=== PATIENT | female | born 1975 | race Caucasian/White ===

== ENCOUNTER 2018-06-01 23:12 | Emergency (ER) | payer MEDICAID, SELFPAY ==
[2018-06-01 23:13] VITALS: BP 145/98; PULSE 77; RESP 18; TEMP 36.4; O2SAT 98; BMI 35.7
--- NOTE | 2018-06-01 23:34 | ED.DCSUM_ITS ---
- ER Visit Summary Date of Service: 06/01/18 Chief Complaint: Right earache and cough History of Present Illness: The patient is a 42 F seen in past medical or surgical history. Patient for 3 days has had a right earache and now a cough and mild sore throat. Cough is nonproductive she is not short of breath. She has had some subjective chills but no documented fever. No vomiting or diarrhea. Physical Examination: Well-appearing middle-age female. Vital signs are stable and afebrile. Pulse ox 98% on room air. No distress. No hypoxia. HEENT exam TMs are normal bilaterally as are the ear canals. Posterior pharynx normal. No erythema or exudate. Tonsils not enlarged. 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 No trouble swallowing or breathing. No stridor or drooling. Neck nontender. No lymphadenopathy. Lungs clear to auscultation bilaterally. No rales, rhonchi or wheezing. Heart regular rate and rhythm no murmur. Abdomen soft and nontender. Moving all 4 extremities. No edema. Back nontender. Neurologically awake and alert no focal motor deficits. Test Results: None Emergency Department Course and Treatment: History and exam are consistent with a viral URI. Treatment Plan: Fluids and rest. Tylenol Motrin. Disposition: Discharge Impression: Viral URI This note was generated with [employer] dictation software. It may contain incorrect words, spelling, and punctuation that were not noted in review of the chart prior to signing ED Disposition - Plan for ED Patient: Referrals: Ashley Stovall MD [Primary Care Provider] -
--- NOTE | 2018-06-01 23:34 | ED.DEP ---
ED Disposition - Plan for ED Patient: Disposition: Home or Assisted Living Instructions: ED Pharyngitis Viral Referrals: Ashley Stovall MD [Primary Care Provider] - 1 Week if not improving Additional Instructions: Plan of fluids and rest. Alternate Tylenol and Motrin. Warm salt water gargling. Follow-up with not improving.
[2018-06-01 23:44] VITALS: BP 145/98; PULSE 77; RESP 18; O2SAT 98
== END 2018-06-01 23:45 | disposition home or self-care (01) ==
LOC: ED 23:39
PROVIDERS: Emergency Provider Emergency Medicine; Family Provider Internal Medicine; PCP Internal Medicine
DX: J06.9 Acute upper respiratory infection, unspecified (principal); J02.9 Acute pharyngitis, unspecified
CPT/HCPCS: 99282

== ENCOUNTER 2018-08-03 20:56 | Emergency (ER) | payer MEDICAID, SELFPAY ==
[2018-08-03 20:56] VITALS: BP 147/94; PULSE 90; RESP 16; TEMP 36.8; O2SAT 98; BMI 35.5
--- NOTE | 2018-08-03 21:12 | RAD_ITS ---
STUDY: X-RAY - LEFT WRIST REASON FOR EXAM: Female, 43 years old. Wrist pain. TECHNIQUE: 3 view(s) of the wrist were obtained. COMPARISON: None. FINDINGS: No acute fracture, dislocation or osseous destruction. No significant joint space narrowing. No significant productive changes. No significant soft tissue swelling. RAD/Wrist min 3 Views IMPRESSION: Left wrist intact Electronically Signed: Jona Diaz DO at 21:25 EDT Tel , Service support ,
[2018-08-03] MEDS: Naproxen 500 MG Tablet PO (21:27)
--- NOTE | 2018-08-03 21:48 | ED.VIS.GEN ---
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 RHD. - Past Medical History (1) Headache, migraine Status: Chronic Past Medical History - Allergies and Home Meds Allergies/Adverse Reactions: Allergies Penicillins Allergy (Verified 08/03/18 20:58) Hives Primary Care Physician: Ashley Stovall MD [Primary Care Provider] - Lives: Spouse/ Significant Other Smoking Status: Never smoker Review of Systems General: Denies: Chills, Fever Musculoskeletal: Reports: Swelling, Extremity Pain. Denies: Neck pain, Back pain Skin: Denies: Rash, Wounds Neurological: Denies: Weakness, Parasthesia, Numbness Physical Exam Vital Signs/Narrative: Vital Signs Temp Pulse Resp BP Pulse Ox 08/03/18 20:56 98.2 F 90 16 147/94 H 98 Inital Vital Signs reviewed: Yes General: Well nourished, Well developed, No Acute Distress Head: Normocephalic, Atraumatic Extremities: No edema, Tenderness - L wrist: dorsum of carpus and distal ulna, - - FROM left wrist and hand Skin: Normal color, No rash, No Trauma - skin intact Neurological: Alert, Oriented x3, Cranial nerves II-XII grossly intact, Normal Strength - including left M/R/U/PIN/AIN, Normal Sensation, Normal Gait Psychological: Normal affect, Normal Mood Diagnostic/Tx/Re-eval Clinical Impression(s) from Imaging Studies Wrist X-Ray 08/03/18 21:12 IMPRESSION: Left wrist intact Electronically Signed: Jona Diaz DO at 21:25 EDT Tel , Service support , - Medical Decision Making X-rays are obtained and showed no acute bony abnormality. She was reassured that this is probably a sprain, she was placed in a cock-up Velcro splint, given naproxen, supportive care advised to follow-up if she still has pain after 1 to 2 weeks that is not improving. She is comfortable with that plan. ED Disposition - Plan for ED Patient: Disposition: Home or Assisted Living Diagnosis: Left wrist sprain Instructions: ED Sprain Wrist Referrals: Ashley Stovall MD [Primary Care Provider] - (as needed if not improving after 1-2 weeks)
--- NOTE | 2018-08-03 21:52 | ED.DCSUM_ITS ---
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 RHD. - Past Medical History (1) Headache, migraine Status: Chronic Past Medical History - Allergies and Home Meds Allergies/Adverse Reactions: Allergies Penicillins Allergy (Verified 08/03/18 20:58) Hives Primary Care Physician: Ashley Stovall MD [Primary Care Provider] - Lives: Spouse/ Significant Other Smoking Status: Never smoker Review of Systems General: Denies: Chills, Fever Musculoskeletal: Reports: Swelling, Extremity Pain. Denies: Neck pain, Back pain Skin: Denies: Rash, Wounds Neurological: Denies: Weakness, Parasthesia, Numbness Physical Exam Vital Signs/Narrative: Vital Signs Temp Pulse Resp BP Pulse Ox 08/03/18 20:56 98.2 F 90 16 147/94 H 98 Inital Vital Signs reviewed: Yes General: Well nourished, Well developed, No Acute Distress Head: Normocephalic, Atraumatic Extremities: No edema, Tenderness - L wrist: dorsum of carpus and distal ulna, - - FROM left wrist and hand Skin: Normal color, No rash, No Trauma - skin intact Neurological: Alert, Oriented x3, Cranial nerves II-XII grossly intact, Normal Strength - including left M/R/U/PIN/AIN, Normal Sensation, Normal Gait Psychological: Normal affect, Normal Mood Diagnostic/Tx/Re-eval Clinical Impression(s) from Imaging Studies Wrist X-Ray 08/03/18 21:12 IMPRESSION: Left wrist intact Electronically Signed: Jona Diaz DO at 21:25 EDT Tel , Service support , - Medical Decision Making X-rays are obtained and showed no acute bony abnormality. She was reassured that this is probably a sprain, she was placed in a cock-up Velcro splint, given naproxen, supportive care advised to follow-up if she still has pain after 1 to 2 weeks that is not improving. She is comfortable with that plan. ED Disposition - Plan for ED Patient: Disposition: Home or Assisted Living Diagnosis: Left wrist sprain Instructions: ED Sprain Wrist Referrals: Ashley Stovall MD [Primary Care Provider] - (as needed if not improving after 1- 2 weeks)
== END 2018-08-03 22:03 | disposition home or self-care (01) ==
PROVIDERS: Emergency Provider Emergency Medicine; Family Provider Internal Medicine; PCP Internal Medicine
DX: S63.502A Unspecified sprain of left wrist, initial encounter (principal); X50.0XXA Overexertion from strenuous movement or load, initial encounter; Y93.89 Activity, other specified; Y92.89 Other specified places as the place of occurrence of the external cause; Y99.8 Other external cause status
CPT/HCPCS: 73110; 99283

== ENCOUNTER 2018-11-06 19:43 | Emergency (ER) | payer SELFPAY ==
[2018-11-06 19:45] VITALS: BP 141/90; PULSE 87; RESP 18; TEMP 35.8; O2SAT 100; BMI 35.2
[2018-11-06] MEDS: 0.9% Normal Saline 1,000 ML 999 ML IV (20:01)
[2018-11-06] MEDS: Ondansetron 4 MG/2 ML Vial IV (20:04)
[2018-11-06 20:09] LABS: Absolute Lymphocyte Count 3.01 X10^3/uL (0.83-4.51); Absolute Neutrophil Count 5.4 X10^3/uL (2.0-7.7); Basophil# 0.06 X10^3/uL; Basophil% 0.7 % (0-1); Eosinophil# 0.08 X10^3/uL; Eosinophils% 0.9 % (0-5); Hematocrit 37.8 % (37-47); Hemoglobin 12.6 g/dL (12.0-15.0); Lymphocyte # 3.01 X10^3/ul (4.0); Lymphocyte % 32.6 % (19-41); Mean Corp Hgb Conc 33.3 g/dL (32-36); Mean Corpuscular Hgb 28.5 pg (27.0-32.0); Mean Corpuscular Volume 85.5 fL (81-99); Mean Platelet Vol. 9.7 fl (6.2-12.0); Monocyte% 6.5 % (0-10); NRBC Flagged by Analyzer 0 % (0-5); Neutrophil # 5.43 X10^3/uL (2.7-7.7); Neutrophil % 58.9 % (47-70); Platelet Count 277 K/mm3 (150-450); RBC Distribution Width CV 12.6 % (11.6-14.6); RBC Distribution Width SD 39.4 fl (35.1-43.9); Red Blood Count 4.42 M/mm3 (4.2-5.4); White Blood Count 9.2 K/mm3 (4.4-11.0)
[2018-11-06 20:23] LABS: Anion Gap 4 (5-15); BUN 10 mg/dL (7-18); BUN/Creat Ratio 16.3 RATIO (10-20); Calcium,Total 8.5 mg/dL (8.5-10.1); Chloride 108 mmol/L (98-107); Creatinine, Serum 0.61 mg/dL (0.55-1.02); EST Glomerular Filtration Rate 114 mL/min (>60); Est Glom Filt Rate - Afr Amer 137 mL/min (>60); Estimated Creatinine Clearance 90.66 ml/min; Glucose 85 mg/dL (74-106); Potassium 3.8 mmol/L (3.5-5.1); Sodium Level 138 mmol/L (136-145)
--- NOTE | 2018-11-06 20:55 | ED.VISSUMM ---
- ER Visit Summary Date of Service: 11/06/18 Chief Complaint: Dizziness and nausea History of Present Illness: The patient is a 43 F who is G5, P4 and possibly at this time. She took a test at home and they were positive. She has had nausea and vomiting for the past 3 weeks. She feels some intermittent dizziness. She does have a history of vertigo. She has had decreased p.o. intake. She denies any vaginal bleeding or abdominal pain. She has no nausea medications at home. Denies any fevers or any other recent illnesses. Physical Examination: Vital signs reviewed. HEENT exam unremarkable. There is no nystagmus. Heart is regular rate and rhythm without murmurs. Lungs are clear to auscultation. Abdomen is soft and nontender. Extremities reveal no edema. Skin exam normal. Neurologic exam normal. Test Results: Laboratory studies are normal except for an hCG of 44,038 Emergency Department Course and Treatment: Patient was given IV fluids and Zofran and feels much better. I do not see any symptoms of active vertigo. She does have a likely first trimester . 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 Treatment Plan: [] Disposition: Discharge Impression: First trimester , nausea and vomiting This note was generated with [employer] dictation software. It may contain incorrect words, spelling, and punctuation that were not noted in review of the chart prior to signing ED Disposition - Plan for ED Patient: Referrals: Ashley Stovall MD [Primary Care Provider] -
--- NOTE | 2018-11-06 20:56 | ED.DEP ---
ED Disposition - Plan for ED Patient: Disposition: Home or Assisted Living Instructions: VOMITING (7y-Adult) Prescriptions: Ondansetron [Zofran Odt] 4 mg PO Q8H PRN PRN #10 tab PRN Reason: Nausea Prescription Printed Referrals: Ashley Stovall MD [Primary Care Provider] - Susan Becker MD [STAFF PHYSICIAN] -
[2018-11-06 21:14] VITALS: BP 129/86; PULSE 78; RESP 16; O2SAT 100
--- NOTE | 2018-11-06 21:15 | ED.RN ---
REVIEWED D/C INSTRUCTIONS, FOLLOW UP CARE, PRESCRIPTION, AND S/S THAT WOULD WARRANT A RETURN TO THE ED WITH PT. PT VERBALIZED AN UNDERSTANDING AND DENIES FURTHER QUESTIONS FOR THIS RN. PT SKIN P/W/D, RESP EVEN AND UNLABORED, PT A&O X 3, NO DISTRESS NOTED. PT AMBULATED OUT OF ED, GAIT STEADY.
== END 2018-11-06 21:16 | disposition home or self-care (01) ==
PROVIDERS: Emergency Provider Emergency Medicine; Family Provider Internal Medicine; PCP Internal Medicine
DX: O21.9 Vomiting of pregnancy, unspecified (principal); O16.1 Unspecified maternal hypertension, first trimester; Z3A.00 Weeks of gestation of pregnancy not specified
CPT/HCPCS: 80048; 84702; 85025; 96360; 99283; A4216; J2405

== ENCOUNTER 2018-11-17 12:00 | Emergency (ER) | payer MEDICAID, SELFPAY ==
[2018-11-17 12:09] VITALS: BP 122/78; PULSE 99; RESP 16; TEMP 36.6; O2SAT 97; BMI 34.9
--- NOTE | 2018-11-17 13:29 | ED.VIS.GEN ---
History of Present Illness Chief Complaint: Hypertension Informant: Patient Onset: Today Context: Gradual Onset Timing: Intermittent, Lasts - 10 min Quality: shaky Location: RUE Current Severity: Moderate Worsened by: Nothing Relieved by: Nothing. Spontaneous resolution gradually. Associated Symptoms: Nausea and vomiting for several weeks, 7-8 weeks currently Narrative: Patient was concerned that she was feeling shaky, and felt that may be blood pressure was up that was causing it. She had no convulsing like seizure activity, she had no loss of consciousness, no numbness or weakness or involvement of other parts of her body was mainly her right hand and arm. It did not last long. She has been feeling very nauseated all morning as she has been throughout her first trimester. She has had no vaginal leakage or bleeding. She did have some mucus during a bowel movement yesterday she states. There is no blood or melena. When EMS came to check her blood pressure, it was in the 150s. Past Medical History - Allergies and Home Meds Allergies/Adverse Reactions: Allergies Penicillins Allergy (Verified 11/17/18 12:10) Hives Primary Care Physician: Ashley Stovall MD [Primary Care Provider] - Past Medical History: None Lives: With Family Smoking Status: Never smoker Drugs: None Review of Systems General: Reports: Malaise. Denies: Chills, Fever, Sweats Eyes: Denies: Visual changes - bilaterally, Diplopia ENT: Denies: Rhinorrhea, Sore throat Cardiovascular: Denies: Chest pain, Palpitations Respiratory: Denies: Dyspnea, Cough, Dyspnea on exertion Gastrointestinal: Reports: Nausea, Vomiting. Denies: Abdominal pain, Diarrhea, Melena, Hematochezia Genitourinary: Denies: Dysuria, Hematuria, Frequency Musculoskeletal: Denies: Back pain, Extremity Pain Skin: Denies: Rash, Wounds Neurological: Reports: - - Tremor. See HPI.. Denies: Headache, Weakness, Numbness Physical Exam Vital Signs/Narrative: Vital Signs Temp Pulse Resp BP Pulse Ox 11/17/18 12:09 97.9 F 99 16 122/78 H 97 Inital Vital Signs reviewed: Yes General: Well nourished, Well developed, Obese, No Acute Distress Head: Normocephalic, Atraumatic Eyes: Perrl, EOMI ENT: Moist mucous membranes, No rhinorrhea Neck: Supple, Nontender Cardiovascular: Regular rate, Regular rhythm, No murmurs Respiratory: No distress, CTA bilaterally, Chest nontender Abdomen: Soft, Nontender, Nondistended, Normal bowel sounds Back: Nontender, Normal Inspection Extremities: Nontender, No edema Skin: Normal color, No rash, No Trauma Neurological: Alert, Oriented x3, Cranial nerves II-XII grossly intact, Normal Strength, Normal Sensation, Normal DTR, - - Not tremulous. Normal neurologic exam. Psychological: Normal affect, Normal Mood Diagnostic/Tx/Re-eval - Medical Decision Making Blood pressure is 122/78. Patient is reassured. She had Zofran earlier in , states it really helped but she ran out a while ago. She would like some more which I think is reasonable. She does understand that taking a lot of it could eventually cause constipation. She can follow-up as an outpatient with regards to a single episode of mucus in her stool. She understands and is comfortable with this plan. ED Disposition - Plan for ED Patient: Disposition: Home or Assisted Living Diagnosis: Tremor, Hyperemesis gravidarum Instructions: Hyperemesis Gravidarum Prescriptions: Ondansetron [Zofran] 8 mg PO Q8H PRN PRN #20 tab PRN Reason: Nausea Transmission Status: Pending to [facility] Referrals: Ashley Stovall MD [Primary Care Provider] - 3-5 Days if not improving (Or your OB)
[2018-11-17] MEDS: Ondansetron ODT 4 MG Tablet 8 MG PO (13:45)
[2018-11-17 13:49] VITALS: BP 121/76; PULSE 82; RESP 16; O2SAT 98
== END 2018-11-17 13:50 | disposition home or self-care (01) ==
PROVIDERS: Emergency Provider Emergency Medicine; Family Provider Internal Medicine; PCP Internal Medicine
DX: O21.0 Mild hyperemesis gravidarum (principal); O99.351 Diseases of the nervous system complicating pregnancy, first trimester; R25.1 Tremor, unspecified; O99.211 Obesity complicating pregnancy, first trimester; E66.9 Obesity, unspecified; Z3A.01 Less than 8 weeks gestation of pregnancy
CPT/HCPCS: 99284

== ENCOUNTER 2018-12-04 18:39 | Emergency (ER) | payer MEDICAID, SELFPAY ==
[2018-12-04 18:40] VITALS: BP 127/77; PULSE 79; RESP 12; TEMP 36.6; O2SAT 97; BMI 34.0
--- NOTE | 2018-12-04 19:16 | ED.DCSUM_ITS ---
- ER Visit Summary Date of Service: 12/04/18 Chief Complaint: Dental pain History of Present Illness: The patient is a 43 F who presents with left upper and lower dental pain that is been getting worse over the past 4 days. Patient describes the pain is sharp and aching. Patient states the pain is worse with eating. Patient does admit to some lower jaw swelling. Patient also admits to hot and cold sensitivity. Patient admits to subjective chills but denies any fevers. Patient states the pain radiates to her left ear. Physical Examination: Vital signs are stable. Patient is afebrile. Patient is in no acute distress. Oral mucosa is pink and moist. There is edema and nader thema of the left upper gingiva around the first premolar. There is a large dental carry noted over the left upper first premolar. There is no abscess formation. There is no active discharge or drainage. There is tenderness to percussion over this tooth. Oropharynx is clear. Airway is patent. Neck is supple. Trachea is midline. There is no JVD noted. There is no sublingual edema or erythema. Heart was regular rate and rhythm. Lungs are clear and equal bilaterally. Emergency Department Course and Treatment: Patient was given a prescription for clindamycin. Patient was instructed to follow-up with her dentist in 5 to 7 days. Patient was instructed to take Tylenol as needed for pain. Patient understood and was agreeable with the plan. All questions were answered. Disposition: Discharge home Impression: Infected dental caries This note was generated with [employer] dictation software. It may contain incorrect words, spelling, and punctuation that were not noted in review of the chart prior to signing ED Disposition - Plan for ED Patient: Disposition: Home or Assisted Living Diagnosis: Infected dental caries Instructions: Dental Cavity Referrals: Ashley Stovall MD [Primary Care Provider] - 5-7 Days Angelina George [NON-STAFF] - 5-7 Days
== END 2018-12-04 19:33 | disposition home or self-care (01) ==
PROVIDERS: Emergency Provider Emergency Medicine; Family Provider Internal Medicine; PCP Internal Medicine
DX: K02.9 Dental caries, unspecified (principal); K04.7 Periapical abscess without sinus
CPT/HCPCS: 99282

== ENCOUNTER 2019-02-04 20:32 | Emergency (ER) | payer MEDICAID, SELFPAY ==
[2019-02-04 20:32] VITALS: BP 137/82; PULSE 106; RESP 18; TEMP 36.6; O2SAT 97; BMI 34.9
[2019-02-04 21:28] LABS: Red Blood Cells-Urine 0 SEEN /hpf (0-5)
[2019-02-04 21:37] LABS: Color, Urine Yellow (Yellow); Glucose, Dipstick Normal (Normal); Ketone-Dipstick 5 mg/dl (Negative); Leukocyte Esterase-Dipstick 25 /ul (Negative); Nitrite-Dipstick Negative (Negative); Occult Blood-Urine 50 /ul (Negative); Protein-Dipstick 30 mg/dl (Negative); Urine Bilirubin Dipstick Negative (Negative); Urine Clarity Sl. Cloudy (Clear); Urine Urobilinogen 1 mg/dl (Normal)
[2019-02-04 22:00] LABS: Calcium Oxalate Crystals Ur 2+ /hpf (<or=2+); Squamous Epithelial Cells - UA 5-10 SEEN /hpf (5-10); White Blood Cells 5-10 SEEN /hpf (0-5)
[2019-02-04 22:01] LABS: Bacteria 1+ /hpf (None Seen); Mucous, Urine 1+ /hpf (<or=2+)
[2019-02-04 22:38] VITALS: RESP 16
--- NOTE | 2019-02-04 22:49 | ED.DCSUM_ITS ---
- ER Visit Summary Date of Service: 02/04/19 Chief Complaint: [Vaginal bleeding] History of Present Illness: The patient is a 43 F [presents to the emergency department complaint of vaginal bleeding that initially started 4 days ago. Patient had some spotting at that time. Patient states it resolved and then today started having some spotting when she would wipe after urinating she would note small amount of blood and some brownish discharge. She complains of some mild left lower abdominal discomfort. She is had no fever. She is had no vomiting. She denies urinary symptoms. Patient is 19 weeks . Patient is G5, P4.] Physical Examination: [HEENT-PERRLA, EOMI. Cranial nerves II through XII grossly intact. TMs clear. Mucous membranes moist. No adenopathy. Cardiovascular-regular rate and rhythm without murmur or ectopy Lungs-clear to auscultation, chest wall stable without crepitus or subcu emphysema Abdomen-normoactive bowel sounds, soft. Patient has some mild discomfort to the left suprapubic region. There is no rebound, rigidity, peritoneal signs. Uterine fundus just below the umbilicus. Extremities-intact ?4, normal range of motion, normal pulses, atraumatic] Test Results: [ heart tones were 140. Urinalysis obtained showed 25 leukocyte esterase as well as 5-10 WBCs and +1 bacteria. Urine was sent for culture.] Emergency Department Course and Treatment: [I discussed case with Dr. Reese who asked that patient call their office tomorrow and if she still having bleeding they will see her tomorrow. Patient otherwise has an ultrasound scheduled in 2 days. I do not feel one needs to be performed emergently tonight. Patient is having minimal bleeding. Advised on pelvic rest. Patient believes her blood type is AB+ and she has never required RhoGam with any of her other pregnancies.] Treatment Plan: [Contact OCCUPATIONAL THERAPY ASSISTANT tomorrow and have ultrasound in 2 days.] Disposition: [Discharged home in stable condition.] Impression: [Vaginal bleeding in the second trimester UTI] This note was generated with [employer] dictation software. It may contain incorrect words, spelling, and punctuation that were not noted in review of the chart prior to signing ED Disposition - Plan for ED Patient: Referrals: Ashley Stovall MD [Primary Care Provider] -
--- NOTE | 2019-02-04 22:52 | ED.DEP ---
ED Disposition - Plan for ED Patient: Instructions: POSSIBLE MISCARRIAGE (Threatened ), Understanding Urinary Tract Infections (UTIs) Prescriptions: Nitrofurantoin Macrocrystals [Macrobid] 100 mg PO Q12 #14 cap Prescription Printed Referrals: Ashley Stovall MD [Primary Care Provider] - Falguni Aolnzo MD [STAFF PHYSICIAN] - 1-2 Days if not improving
[2019-02-04] MEDS: Nitrofurantoin Macrocrystals 100 MG Capsule PO (23:05)
[2019-02-04 23:06] VITALS: BP 131/59; PULSE 92; RESP 18; O2SAT 97
== END 2019-02-04 23:07 | disposition home or self-care (01) ==
LOC: ED 21:17
PROVIDERS: Emergency Provider Emergency Medicine; Family Provider Internal Medicine; PCP Internal Medicine
DX: O23.42 Unspecified infection of urinary tract in pregnancy, second trimester (principal); O20.9 Hemorrhage in early pregnancy, unspecified; Z3A.19 19 weeks gestation of pregnancy
CPT/HCPCS: 81001; 87086; 87088; 99283

== ENCOUNTER 2019-03-23 22:48 | Emergency (ER) | payer MEDICAID, SELFPAY ==
[2019-03-23 22:49] VITALS: BP 133/82; PULSE 102; RESP 16; TEMP 37.1; O2SAT 97; BMI 35.6
--- NOTE | 2019-03-23 23:20 | ED.DCSUM_ITS ---
History of Present Illness Chief Complaint: Back Informant: Patient Onset: Days - 3 Context: Gradual Onset Timing: Continuous Quality: Aching Location: Lumbar, Right Leg Current Severity: Moderate Maximum Severity: Moderate Worsened by: improves with: Movement, Ambulation Relieved by: Remaining Still Associated Symptoms: Radiation to Right Leg - Mid thigh, nothing distal, - - No numbness, weakness, fevers, bowel or bladder dysfunction, abdominal complaints, urinary complaints Narrative: Most of the pain is right lumbosacral. Stops at the midline. Patient denies any injury. She is 27 weeks . She is still feeling the baby kick and move. No recent falls or near falls or abdominal injuries, no vaginal symptoms or bleeding or liquid discharge. 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 Prior similar symptoms: No Past Medical History - Allergies and Home Meds Allergies/Adverse Reactions: Allergies Penicillins Allergy (Verified 03/23/19 22:51) Hives Primary Care Physician: Ashley Stovall MD [Primary Care Provider] - Past Medical History: None Surgical History: no surgical history Smoking Status: Never smoker Review of Systems General: Denies: Chills, Fever, Sweats Gastrointestinal: Denies: Abdominal pain, Nausea, Vomiting, Diarrhea, Hematochezia Genitourinary: Denies: Dysuria, Hematuria, Frequency Musculoskeletal: Reports: Back pain, Extremity Pain. Denies: Neck pain, Swelling Physical Exam Vital Signs/Narrative: Vital Signs Temp Pulse Resp BP Pulse Ox 03/23/19 22:49 98.8 F 102 H 16 133/82 H 97 Inital Vital Signs reviewed: Yes General: Well nourished, Well developed, - - Well-appearing, no distress Head: Normocephalic, Atraumatic Back: Normal Inspection, Paraspinal Tenderness - Mild right lumbosacral along p elvic brim and SI joint., Negative SLR - Right, Negative SLR - Left - Including cross leg, - - Minor subcentimeter length discrepancy in her extremities. Negative for: Spinal tenderness Extremeties: Nontender, No edema Skin: Normal color, No rash, No Trauma Neuro: Alert, Oriented, Normal Strength, Normal Sensation, Normal DTR, Normal Gait, Normal Reflexes - And no clonus bilaterally Psychological: Normal affect, Normal Mood Diagnostic/Tx/Re-eval - Medical Decision Making Consistent with sacroiliac dysfunction. Advised to follow-up with her doctor or see a chiropractor and to make sure to let them know she is . She generally Tylenol now for this medication , she does not require any prescription analgesics. She was given Tylenol here and given appropriate discharge instructions and she is comfortable with this plan. No signs of radiculopathy at this time. ED Disposition - Plan for ED Patient: Disposition: Home or Assisted Living Diagnosis: Sacroiliac joint dysfunction of right side Instructions: Sacroiliitis, Anatomy of the Sacroiliac Joint Referrals: Ashley Stovall MD [Primary Care Provider] - 1 Week if not improving
[2019-03-23] MEDS: Acetaminophen 500 MG Tablet 1000 MG PO (23:27)
[2019-03-23 23:28] VITALS: RESP 18
== END 2019-03-23 23:42 | disposition home or self-care (01) ==
PROVIDERS: Emergency Provider Emergency Medicine; Family Provider Internal Medicine; PCP Internal Medicine
DX: O99.89 Other specified diseases and conditions complicating pregnancy, childbirth and the puerperium (principal); M53.3 Sacrococcygeal disorders, not elsewhere classified; Z3A.27 27 weeks gestation of pregnancy
CPT/HCPCS: 99283

== ENCOUNTER 2019-05-09 16:25 | Outpatient (CLI) | payer MEDICAID, SELFPAY ==
[2019-05-09 16:39] VITALS: BMI 38.0
[2019-05-09 17:37] LABS: ROM Internal Control Test YES-OK TO RESULT pt. (Internal QC); ROM Patient Test Negative (Negative)
[2019-05-09 17:37] LABS: Mucous, Urine 0 SEEN /hpf (<or=2+); Red Blood Cells-Urine 0 SEEN /hpf (0-5)
[2019-05-09 17:40] LABS: Color, Urine Yellow (Yellow); Glucose, Dipstick Normal (Normal); Ketone-Dipstick Negative (Negative); Leukocyte Esterase-Dipstick 25 /ul (Negative); Nitrite-Dipstick Negative (Negative); Occult Blood-Urine Negative /ul (Negative); Protein-Dipstick Negative (Negative); Urine Bilirubin Dipstick Negative (Negative); Urine Clarity Clear (Clear); Urine Urobilinogen Normal (Normal)
[2019-05-09 17:47] LABS: Squamous Epithelial Cells - UA 5-10 SEEN /hpf (5-10); White Blood Cells 0-5 SEEN /hpf (0-5)
[2019-05-09 17:48] LABS: Bacteria 1+ /hpf (None Seen)
--- NOTE | 2019-05-09 20:23 | OB.TRI.NOTE ---
- Problem List (1) Vaginal discharge during Status: Acute (2) 32 weeks gestation of Status: Acute History of Present Illness Date of Service: 05/09/19 Was patient seen by the physician?: No Reason For Visit: RULE OUT LABOR Final AMOL: 07/02/19 Gestational age: 32 Weeks and 2 Days History of Present Illness: Patient feels her underwear have been more wet. No leaking or gushes of fluid. No regular ctx, vb. +FM Allergies Penicillins Allergy (Verified 03/23/19 22:51) Hives Laboratory Studies: Laboratory Tests 05/09/19 05/09/19 Range/Units 17:30 16:50 Urine Color Yellow (Yellow) Urine Clarity Clear (Clear) Urine pH 7.0 (5.0 - 8.0) Ur Specific [place] 1.010 (1.002-1.030) Urine Protein Negative (Negative) mg/dl Urine Glucose (UA) Normal (Normal) mg/dl Urine Ketones Negative (Negative) mg/dl Urine Occult Blood Negative (Negative) /ul Urine Nitrite Negative (Negative) Urine Bilirubin Negative (Negative) mg/dL Urine Urobilinogen Normal (Normal) mg/dl Ur Leukocyte Esterase 25 H (Negative) /ul Urine RBC 0 SEEN (0-5) /hpf Urine WBC 0-5 SEEN (0-5) /hpf Ur Squamous Epith Cells 5-10 SEEN (5-10) /hpf Urine Bacteria 1+ (None Seen) /hpf Urine Mucus 0 SEEN (<or=2+) /hpf Vag Amniotic Fld Detect Negative (Negative) NST - FHR Rate Baby A Baseline: 140 Variability:: Moderate Accelerations:: 15 x 15 Decelerations:: None NST Reactive:: Yes FHR Category:: Category I Uterine Activity:: Ctx q 1-2 min Impression/Plan ROM plus negative Not ruptured D/c home with return precautions
== END 2019-05-09 18:00 | disposition home or self-care (01) ==
LOC: WPOUT 16:31 → OBT 16:32
PROVIDERS: PCP Internal Medicine; Visit Provider Obstetrics & Gynecology
DX: O26.893 Other specified pregnancy related conditions, third trimester (principal); N89.8 Other specified noninflammatory disorders of vagina; Z3A.32 32 weeks gestation of pregnancy
CPT/HCPCS: 59025; 59050; 81001; 84112; 87086; 87088; 99218; G0378

== ENCOUNTER 2019-05-18 19:30 | Outpatient (CLI) | payer MEDICAID, SELFPAY ==
[2019-05-18 20:16] VITALS: PULSE 102; TEMP 98; O2SAT 98
[2019-05-18 20:17] VITALS: BP 138/81; PULSE 99
[2019-05-18 20:43] VITALS: BMI 38.4
[2019-05-18 20:57] LABS: ROM Internal Control Test YES-OK TO RESULT pt. (Internal QC); ROM Patient Test Negative (Negative)
--- NOTE | 2019-05-24 11:58 | OB.TRI.PN ---
Progress Notes Date of Service: 05/18/19 Progress Note: Presented to L&D with possible ROM and fluid leakage O: [id number], moderate variability, accels, no decels, Reactive Strip Irregular contractions, patient not able to feel them ROM plus negative and vaginal exam negative for fluid A: Vaginal Discharge P: 1) Negative for ROM. Discharge home. Laboratory Studies: Laboratory Tests 05/18/19 Range/Units 20:25 Vag Amniotic Fld Detect Negative (Negative)
== END 2019-05-18 22:10 | disposition home or self-care (01) ==
LOC: WPOUT 20:00 → WP 20:01
PROVIDERS: PCP Internal Medicine; Visit Provider Advanced Practice Midwife
DX: O26.899 Other specified pregnancy related conditions, unspecified trimester (principal); N89.8 Other specified noninflammatory disorders of vagina; Z3A.00 Weeks of gestation of pregnancy not specified
CPT/HCPCS: 59025; 59050; 84112; 99218; G0378

== ENCOUNTER 2019-06-17 12:39 | Inpatient (IN) | payer MEDICAID, SELFPAY ==
[2019-06-17] VITALS (25 sets, daily range): BP systolic 122–159; BP diastolic 77–106; PULSE 90–129; TEMP 36.5–37.2; O2SAT 89–97; BMI 39.1
[2019-06-17] MEDS: Lactated Ringers 1,000 ML 50 ML IV (13:07)
[2019-06-17 13:27] LABS: Absolute Lymphocyte Count 1.98 X10^3/uL (0.83-4.51); Absolute Neutrophil Count 7.6 X10^3/uL (2.0-7.7); Basophil# 0.05 X10^3/uL; Basophil% 0.5 % (0-1); Eosinophil# 0.06 X10^3/uL; Eosinophils% 0.6 % (0-5); Hematocrit 31.4 % (37-47); Hemoglobin 10.9 g/dL (12.0-15.0); Lymphocyte # 1.98 X10^3/ul (4.0); Lymphocyte % 19.1 % (19-41); Mean Corp Hgb Conc 34.7 g/dL (32-36); Mean Corpuscular Hgb 29.9 pg (27.0-32.0); Mean Platelet Vol. 10.3 fl (6.2-12.0); Monocyte# 0.57 X10^3/uL; Monocyte% 5.5 % (0-10); NRBC Flagged by Analyzer 0 % (0-5); Neutrophil # 7.59 X10^3/uL (2.7-7.7); Neutrophil % 73.2 % (47-70); Platelet Count 304 K/mm3 (150-450); RBC Distribution Width CV 12.7 % (11.6-14.6); RBC Distribution Width SD 38.5 fl (35.1-43.9); Red Blood Count 3.65 M/mm3 (4.2-5.4); White Blood Count 10.4 K/mm3 (4.4-11.0)
[2019-06-17] MEDS: Oxytocin 30 units/NS 500 ml 30 UNITS/500 ML IV.SOLN IV (14:18)
--- NOTE | 2019-06-17 14:28 | HP.PCM_ITS ---
History Date of Admission: 06/17/19 Final AMOL: 07/02/19 Final AMOL Source: US <20 weeks Gestational age: 37 Weeks and 6 Days History of this : This is a 43 year-old, @ 37.6 weeks complaining of spontaneous rupture of membranes. Allergies Penicillins Allergy (Verified 06/17/19 12:53) Hives Home Medications: Home Medications Caplet 1 tab PO DAILY 11/17/18 Aspirin [Aspir 81] 81 mg PO DAILY 02/04/19 Smoking Status: Never smoker Alcohol: None History Past Pregnancies: Past Pregnancies Delivery Date Name GA/ Weeks Outcome Route Wt Infant Sex Labor Length Anesthesia Delivery Location Provider FOB Expected Delivery Method: Spontaneous Vaginal Physical Exam Vitals: Vital Signs Temp Pulse BP 98.2 F 93 122/84 H 06/17/19 14:01 06/17/19 14:01 06/17/19 14:01 General: Alert, Oriented x3 Abdomen: Soft, Non Tender, Gravid Neurological: Cranial nerves II-XII grossly intact [employer]: Normal external genitalia Estimated gestational size: Appropriate for gestational size Presentation: Cephalic Cervix Dilation (cm): 3 Station: -2 Effacement (%): 70 Assessment/Plan All Active Problems Vaginal discharge during (Acute) 32 weeks gestation of (Acute) This is a 43 year-old, G 5P4 @ 37.6 weeks, SROM in early labor admit to l&D monitor fhr/toco anticipate epidural if requested for pain
[2019-06-17] MEDS: Lactated Ringers 500 ML 999 ML IV (16:20)
[2019-06-17] MEDS: fentaNYL-bupivacaine (epidural) 100 ML BAG EPIDURAL (16:59)
[2019-06-17] MEDS: Oxytocin 30 units/NS 500 ml 30 UNITS/500 ML IV.SOLN 334 UNITS IV (17:22)
--- NOTE | 2019-06-17 17:29 | PCM.OPRPT ---
Vaginal Delivery Maternal Presentation: Spontaneous Rupture of Membranes Amniotic Membrane Rupture Type: Spontaneous at home Amniotic Fluid Description: Clear Final AMOL: 07/02/19 Final AMOL Source: US <20 weeks Gestational age: 37 Weeks and 6 Days Date of Procedure: 06/17/19 Pre-Operative Diagnosis: term gestation, Polyhydramnios, h/o chtn Post-Operative Diagnosis: same, live female infant Surgery/ Procedure Performed: Spontaneous Vaginal Delivery Type of Anesthesia: Epidural Description of Procedure: Normal spontaneous vaginal delivery of a live female born without complication. Infant was placed on the mother's chest for immediate skin to skin. Delayed cord clamping was performed. Placenta was delivered without complication and intact. First-degree vaginal laceration was hemostatic no repair was indicated. Presentation: Vertex Placental Delivery Description: Spontaneous Placenta Disposition: [facility] Cord Vessel Description: 3 Vessels Nuchal Cord Compression: Without compression Cord Entanglement: None Estimated Blood Loss: 150 Infant A gender: Female (1 minute): 8 (5 minute): 9 Episiotomy Description: None Laceration: Vaginal Extension/lac, 1st degree Medications given after delivery: IV Pitocin Complications: None
[2019-06-17] MEDS: Ibuprofen 600 MG Tablet PO (19:00)
[2019-06-17] MEDS: Acetaminophen 500 MG Tablet 1000 MG PO (20:06)
[2019-06-18 00:44] VITALS: BP 145/88; PULSE 92; RESP 18; TEMP 37.1
[2019-06-18] MEDS: Ibuprofen 600 MG Tablet PO ×2 (00:45→16:02)
[2019-06-18 08:00] VITALS: BP 136/75; PULSE 94; RESP 14; TEMP 36.7
--- NOTE | 2019-06-18 09:30 | PCM.PN.OB ---
Subjective: pain well controlled, average lochia, no c/o - Physical Exam Vitals/I&O's: Vital Signs Temp Pulse Resp BP Pulse Ox 98.7 F 92 18 145/88 H 89 06/18/19 00:44 06/18/19 00:44 06/18/19 00:44 06/18/19 00:44 06/17/19 17:05 Weight: 93.894 kg Body Mass Index (BMI) 39.1 Intake and Output for Last 24 Hours 06/16/19 06/17/19 06/18/19 23:59 23:59 23:59 Intake Total 1226.70 / 1226.70 Output Total 200 / 200 Balance 1026.70 / 1026.70 General: Alert, Cooperative, No apparent distress Laboratory Results 06/17/19 13:07: WBC 10.4, RBC 3.65 L, Hgb 10.9 L, Hct 31.4 L, MCV 86.0, MCH 29.9, MCHC 34.7, RDW Std Deviation 38.5, RDW Coeff of Juni 12.7, Plt Count 304, MPV 10.3, Immature Gran % (Auto) 1.100 H, Neut % (Auto) 73.2 H, Lymph % (Auto) 19.1, Roosevelt % (Auto) 5.5, Eos % (Auto) 0.6, Baso % (Auto) 0.5, Absolute Neuts (auto) 7.6, Absolute Lymphs (auto) 1.98, Nucleated RBC % 0 06/17/19 13:07: Blood Type O POSITIVE, Antibody Screen NEGATIVE Current Medications Acetaminophen (Tylenol) 1,000 mg PO Q8H PRN PRN PRN Reason: Pain Score 1-310 Last Admin: 06/17/19 20:06 Dose: 1,000 mg Documented by: Bisacodyl (Dulcolax) 10 mg RECTAL UD PRN PRN Reason: If no BM Dibucaine (Dibucaine) 1 applic TOPICAL TID PRN PRN; Protocol PRN Reason: Discomfort Hydrocortisone (Hytone) 1 applic TOPICAL TID PRN PRN; Protocol PRN Reason: Discomfort Ibuprofen (Motrin) 600 mg PO Q6H PRN PRN PRN Reason: Pain Score 1-310 Last Admin: 06/18/19 00:45 Dose: 600 mg Documented by: Methylergonovine Maleate (Methergine) 0.2 mg IM X1 PRN PRN Reason: Excess bleeding/uterine atony Ondansetron HCl (Zofran) 4 mg IV Q4H PRN PRN PRN Reason: Nausea Oxycodone HCl (Oxyir) 5 - 10 mg PO Q4H PRN PRN PRN Reason: Pain Score 4-10/10 Senna/Docusate Sodium (Senokot-S, Zuly-Colace) 1 - 2 tablet PO DAILY PRN PRN PRN Reason: Constipation Simethicone (Mylicon) 80 mg PO PCHS PRN PRN Reason: Indigestion/Stomach pain Sodium Chloride () 5 - 15 ml IV UD PRN PRN Reason: SALINE FLUSH Medical Necessity - Tobacco Use Smoking Status: Never smoker Assessment/Plan All Active Problems Vaginal discharge during (Acute) 32 weeks gestation of (Acute) PPD#1 s/p patient doing well doing well d/c home in am plans OCPs for contraception until tubal
[2019-06-18 12:00] VITALS: BP 121/70; PULSE 80; RESP 15
--- NOTE | 2019-06-18 14:51 | DCINST_ITS ---
Discharge Diet: No Restrictions Discharge Activity: Return to Normal Activity, May not drive while taking narcotic pain medications., May Shower May resume sexual activity in: 4-6 weeks Additional Activity Instructions:: Nothing in the vagina for 4-6 weeks. You may return to work/school in 6 weeks. Call your doctor if your incision/area has: Continuous Slow Oozing, Sudden Increased Bleeding, Increased Pain/ Swelling, Increased Redness, Foul Smelling Discharge Additional Instructions: If you experience any of the following, contact your healthcare provider. * Bleeding that soaks a pad every hour for 2 hours * Fever 100.4 or higher * Unrelieved incision or abdominal pain * Swelling, redness, discharge or bleeding from your incision or episiotomy site * Your incision begins to separate * Problems urinating (including inability to urinate or burning while urinating). * Visual changes * Severe headache * Flu-like symptoms * Pain or redness in one of both of your breasts * Pain, warmth, tenderness or swelling in your legs, especially the calf area * Frequent nausea and vomiting * Symptoms of depression or anxiety If you experience any of the following, call 911 or go to the nearest Emergency Room. * Chest pain * Problems breathing * Seizure activity * Partial or complete paralysis of a body part, slurred speech, weakness or drooping of the face, or a sudden inability to walk or hold your balance Allergies/Adverse Reactions: Allergies Penicillins Allergy (Verified 06/17/19 12:53) Hives Medications to take at Discharge Caplet 1 tab PO DAILY 11/17/18 Ibuprofen [Motrin] 600 mg PO Q6H PRN #60 tab 06/18/19 Norethindrone [Ortho Micronor] 0.35 mg PO DAILY #1 pack 06/18/19 The following prescriptions were given: Ibuprofen [Motrin] 600 mg PO Q6H PRN #60 tab PRN Reason: Pain Transmission Status: Received by [facility] Norethindrone [Ortho Micronor] 0.35 mg PO DAILY #1 pack Transmission Status: Received by [facility] Please Follow Up With: Katelyn Gomez MD - [phone] When: Call to make an appointment with your doctor in 6 weeks. If you had elevated Blood Pressure or 4th degree laceration you will need to be seen in 2 weeks. Primary Care Physician: Ashley Stovall MD [Primary Care Provider] - Test Results: Test results from this visit will be discussed in further detail at your follow- up appointment, if applicable.
[2019-06-18 16:30] VITALS: BP 128/77; PULSE 89; RESP 15; TEMP 36.6
[2019-06-18 19:30] VITALS: RESP 18
== END 2019-06-18 19:30 | disposition home or self-care (01) | DRG 560 ==
PROVIDERS: Admitting Provider Obstetrics & Gynecology; PCP Internal Medicine; Referring Provider Obstetrics & Gynecology; Visit Provider Obstetrics & Gynecology
DX: O69.81X0 Labor and delivery complicated by cord around neck, without compression, not applicable or unspecified (principal); O71.4 Obstetric high vaginal laceration alone; Z3A.37 37 weeks gestation of pregnancy; Z37.0 Single live birth
CPT/HCPCS: 85025; 86850; 86900; 86901; 99218; J7120; G0378

== ENCOUNTER 2020-09-28 18:13 | Emergency (ER) | payer MEDICAID, SELFPAY ==
[2019-06-17 12:50] VITALS: BMI 39.1
[2020-09-28 18:14] VITALS: BP 137/91; PULSE 90; RESP 16; TEMP 36.6; O2SAT 98; BMI 38.6
--- NOTE | 2020-09-28 18:57 | EDS_ITS ---
HPI History of Present Illness Chief Complaint: Abd Pain Informant: patient Narrative Narrative: Patient is a 45-year-old female who presents to the emergency department for nausea, diarrhea. Her initial symptoms started yesterday. She states she has had some intermittent abdominal pain over the past 2 weeks. She is concerned she might of had abdominal hernia as she has had this before in the past. She states that her bowel movements have been very pale in coloration. She does have a history of cholecystectomy. She has not taken anything for her symptoms. No known sick contacts. She denies any fevers or chills. No cough. 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 Her abdominal pain is improved at this time. Denies any chest pain or shortness of breath. No urinary symptoms. No known aggravating or relieving factors. No recent travel or antibiotic use. [facility] Medical History (Updated 09/28/20 @ 20:[address] Justin hRoades DO) Migraines Home Medications Caplet 1 tab PO DAILY 11/17/18 [History Last Taken 05/18/19 09:30] ibuprofen 600 mg PO Q6H PRN #60 tab 06/18/19 [Rx Last Taken Unknown] norethindrone (contraceptive) 0.35 mg PO DAILY #1 pack 06/18/19 [Rx Last Taken Unknown] ondansetron 4 mg PO Q8H PRN 4 Days #10 tab 09/28/20 [Rx Last Taken Unknown] Allergy/AdvReac Type Severity Reaction Status Date / Time Penicillins Allergy Hives Verified 09/28/20 18:14 Social History Smoking Status: Never smoker ROS ROS ED Constitutional Constitutional ED: Denies chills or fever(s) Eyes Eyes: Denies change in vision ENT ENT ED: Denies epistaxis or rhinorrhea Cardiovascular Cardiovascular: Denies chest pain or palpitations Respiratory/Chest Respiratory/Chest: Denies cough, dyspnea or dyspnea on exertion Gastrointestinal Gastrointestinal: Reports abdominal pain, diarrhea and nausea; Denies constipation, melena or vomiting Genitourinary Genitourinary ED: Denies dysuria, hematuria or urinary frequency Musculoskeletal Musculoskeletal: Denies back pain or neck pain Integumentary Denies rash Neurologic Neurologic: Denies dizziness, headache(s) or weakness EXAM Physical Exam Const Vital Signs: 09/28/20 18:14 Temperature 97.8 F Temperature Source Temporal Pulse Rate 90 Respiratory Rate 16 Blood Pressure 137/91 H Blood Pressure Mean 106 Pulse Ox 98 Oxygen Delivery Method Room Air Positive well nourished and well developed General Appearance ED: well developed and NAD HEENT Reports normocephalic, head/scalp atraumatic and moist mucous membranes Eyes PERRL and EOMs intact bilaterally Resp normal respiratory effort and clear to auscultation bilaterally Auscultation: Negative for rales, rhonchi or wheezes Cardio regular rate, regular rhythm and no murmurs GI normal to inspection, nondistended, normoactive bowel sounds and non-tender Palpation: soft; Negative for guarding or rebound tenderness present Extremity normal to inspection General Extremety ED: Negative for edema or tenderness General Extremity: Negative for edema Neuro no sensory deficits noted Sensorium / Orientation: alert Motor Exam: strength 5/5 throughout Psych mental status grossly normal Skin no rashes or lesions noted MDM MDM MDM Narrative Medical decision making narrative: Patient presents to the emergency department for nausea and diarrhea. Upon arrival to the ED she is not tachycardic or hypotensive. She is afebrile. She is a benign abdominal exam. She is in no acute distress. Will check basic lab work and give IV fluids for symptomatic treatment. I could not appreciate any hernia on examination. Patient's lab work did not reveal a high white blood cell count. She is not anemic. Her potassium is mildly low and looks like she has had this issue before in the past. Her liver enzymes are within normal limits. Her lipase is low. On reexamination she is feeling better. Will recommend symptomatic treatment. This could be a viral gastritis with the nausea and vomiting. No abdominal pain over the past 2 weeks was necessarily related to this. She is denying any pain currently. She has benign exam. Will discharge home in stable condition. If she develops a hernia is not reducible she needs to come back to the ED. She otherwise is to follow-up with her surgeon. Return precautions are reviewed. She understands and is agreeable with this plan. Lab Data Labs: Laboratory Results - last 24 hr 09/28/20 09/28/20 18:40 18:40 WBC 8.6 RBC 4.72 Hgb 12.7 Hct 40.3 MCV 85.4 MCH 26.9 L MCHC 31.5 L RDW Std Deviation 41.3 RDW Coeff of Juni 13.2 Plt Count 276 MPV 10.2 Immature Gran % (Auto) 0.300 Neut % (Auto) 63.9 Lymph % (Auto) 25.6 Reagan % (Auto) 8.6 Eos % (Auto) 0.9 Baso % (Auto) 0.7 Absolute Neuts (auto) 5.5 Absolute Lymphs (auto) 2.20 Nucleated RBC % 0 Sodium 141 Potassium 3.2 L Chloride 108 H Carbon Dioxide 26.0 Anion Gap 7 BUN 13 Creatinine 0.73 Estim Creat Clear Calc 74.21 Est GFR (MDRD) Af Amer 112 Est GFR (MDRD) Non-Af 92 BUN/Creatinine Ratio 17.9 Glucose 102 Calcium 8.9 Total Bilirubin 0.50 AST 15 ALT 17 Alkaline Phosphatase 87 Total Protein 7.4 Albumin 3.4 Globulin 4.0 Albumin/Globulin Ratio 0.8 L Lipase 42 L Discharge Plan Triage Chief Complaint: Abd Pain ED Provider: Justin Rhoades Dx/Rx/DC Orders Clinical Impression: Diarrhea, Nausea Instructions: ED Gastritis (Adult) Prescriptions: New ondansetron 4 mg tablet,disintegrating 4 mg PO Q8H PRN (Reason: nausea and vomiting) 4 Days Qty: 10 RF: 0 No Action Caplet 1 TAB tablet 1 tab PO DAILY RF: 0 ibuprofen 600 MG tablet 600 mg PO Q6H PRN (Reason: Pain) Qty: 60 RF: 1 norethindrone (contraceptive) 0.35 MG tablet 0.35 mg PO DAILY Qty: 1 RF: 3 Primary Care Provider: Ashley Stovall Referrals: Ashley Stovall MD [Primary Care Provider] - 3-5 Days if not improving Disposition Disposition: Home, Self Care Discharge Date/Time: 09/28/20 20:06
[2020-09-28] MEDS: 0.9% Normal Saline 1,000 ML 1000 ML IV (19:14)
[2020-09-28 19:20] LABS: Absolute Neutrophil Count 5.5 X10^3/uL (2.0-7.7); Basophil# 0.06 X10^3/uL; Basophil% 0.7 % (0-1); Eosinophil# 0.08 X10^3/uL; Eosinophils% 0.9 % (0-5); Hematocrit 40.3 % (37-47); Hemoglobin 12.7 g/dL (12.0-15.0); Lymphocyte % 25.6 % (19-41); Mean Corp Hgb Conc 31.5 g/dL (32-36); Mean Corpuscular Hgb 26.9 pg (27.0-32.0); Mean Corpuscular Volume 85.4 fL (81-99); Mean Platelet Vol. 10.2 fl (6.2-12.0); Monocyte# 0.74 X10^3/uL; Monocyte% 8.6 % (0-10); NRBC Flagged by Analyzer 0 % (0-5); Neutrophil # 5.47 X10^3/uL (2.7-7.7); Neutrophil % 63.9 % (47-70); Platelet Count 276 K/mm3 (150-450); RBC Distribution Width CV 13.2 % (11.6-14.6); RBC Distribution Width SD 41.3 fl (35.1-43.9); Red Blood Count 4.72 M/mm3 (4.2-5.4); White Blood Count 8.6 K/mm3 (4.4-11.0)
[2020-09-28 19:32] LABS: ALB/GLOB Ratio 0.8 RATIO (0.9-2.4); AST(SGOT) 15 U/L (15-37); Alanine Aminotransfer ALT/SGPT 17 U/L (13-56); Albumin, Serum 3.4 g/dL (3.2-5.0); Alkaline Phosphatase 87 U/L (45-117); Anion Gap 7 (5-15); BUN 13 mg/dL (7-18); BUN/Creat Ratio 17.9 RATIO (10-20); Calcium,Total 8.9 mg/dL (8.5-10.1); Chloride 108 mmol/L (98-107); Creatinine, Serum 0.73 mg/dL (0.55-1.02); EST Glomerular Filtration Rate 92 mL/min (>60); Est Glom Filt Rate - Afr Amer 112 mL/min (>60); Estimated Creatinine Clearance 74.21 ml/min; Glucose 102 mg/dL (74-106); Lipase 42 U/L (73-393); Potassium 3.2 mmol/L (3.5-5.1); Protein, Total 7.4 g/dL (6.4-8.2); Sodium Level 141 mmol/L (136-145)
== END 2020-09-28 20:06 | disposition home or self-care (01) ==
PROVIDERS: Emergency Provider Emergency Medicine; PCP Internal Medicine
DX: R19.7 Diarrhea, unspecified (principal); R11.0 Nausea
CPT/HCPCS: 80053; 83690; 85025; 96360; 99284; J7030; A4216

== ENCOUNTER 2021-09-29 18:01 | Emergency (ER) | payer MEDICAID, SELFPAY ==
[2021-09-29 18:01] VITALS: BP 168/106; PULSE 95; RESP 18; TEMP 36.9; O2SAT 98; BMI 37.8
--- NOTE | 2021-09-29 18:06 | RAD_ITS ---
EXAM: XR LEFT SHOULDER COMPLETE, 2 OR MORE VIEWS CLINICAL INDICATION: pain TECHNIQUE: Two or more views of the left shoulder. This report was created using [employer] report generation technology. COMPARISON: None. FINDINGS: BONES/JOINTS: Unremarkable. No acute fracture. No subluxation. Normal alignment. Preservation of the joint space. No sclerotic or destructive changes observed. SOFT TISSUES: Unremarkable. No soft tissue swelling or gas. No radiopaque foreign body. RAD/Shoulder min 2 Views IMPRESSION: Negative left shoulder x-rays. Electronically Signed: Ilir Ross MD at 18:31 EDT ,
--- NOTE | 2021-09-29 18:18 | RAD_ITS ---
EXAM: XR CERVICAL SPINE, 4 OR 5 VIEWS CLINICAL INDICATION: pain TECHNIQUE: Frontal, lateral and bilateral oblique views of the cervical spine. This report was created using [employer] report Bomgar technology. COMPARISON: None. FINDINGS: VERTEBRAE: Unremarkable. Preserved vertebral body height. No acute fracture. No spondylolisthesis. Preservation of the normal cervical lordosis. No significant facet arthropathy. DISC SPACES: Unremarkable. Disc spaces are maintained. SOFT TISSUES: Unremarkable. No prevertebral soft tissue widening. LUNG APICES: Clear. RAD/Cerv Spine 2 or 3 Views IMPRESSION: No evidence of acute fracture or spondylolisthesis. Electronically Signed: Ilir Ross MD at 18:32 EDT ,
--- NOTE | 2021-09-29 19:35 | EDS_ITS ---
HPI History of Present Illness HPI Narrative: Neck and left arm pain Chief Complaint: Upper Extremity Injury Informant: patient Onset/Context/Timing Onset: Days Context: Gradual Onset Current Severity: Moderate Maximum Severity: Moderate Associated Symptoms Associated Symptoms: Positive for Parasthesia Narrative Narrative: Patient presents secondary to pain in her neck and arm with some tingling. Patient states that she had pinched nerve in the past and this feels similar. She denies specific injury but did note some tightness in her neck and posterior shoulder 3 days ago. It continued to worsen and now she has aching and paresthesias in her left arm. Pain is worse with movement and palpation. [facility] Medical History Migraines Home Medications Caplet 1 tab PO DAILY Check with primary doctor 11/17/18 [History Last Taken 05/18/19 09:30] ibuprofen 600 mg tablet 600 mg PO Q6H PRN Pain #60 tabs 06/18/19 [Rx Last Taken Unknown] norethindrone (contraceptive) 0.35 mg tablet 0.35 mg PO DAILY ##1 06/18/19 [Rx Last Taken Unknown] ondansetron 4 mg disintegrating tablet 4 mg PO Q8H PRN nausea and vomiting 4 days #10 tabs 09/28/20 [Rx Last Taken Unknown] cyclobenzaprine 10 mg tablet 10 mg PO BID PRN muscle spasm #10 tabs 09/29/21 [Rx Last Taken Unknown] hydrocodone-acetaminophen 5-325mg 5mg-325mg 1 tab PO Q6H PRN pain 3 days #10 tabs 09/29/21 [Rx Last Taken Unknown] lidocaine 5 % topical patch (Lidoderm) 1 patch topical DAILY #7 ea 09/29/21 [Rx Last Taken Unknown] naproxen 500 mg tablet (Naprosyn) 500 mg PO BID PRN pain #20 tabs 09/29/21 [Rx Last Taken Unknown] Allergy/AdvReac Type Severity Reaction Status Date / Time Penicillins Allergy Hives Verified 09/29/21 18:03 Social History Smoking Status: Never smoker ROS ROS ED Constitutional Constitutional ED: Denies chills or fever(s) Eyes Eyes: Denies change in vision or discharge from eye(s) ENT ENT ED: Denies discharge from eye(s), rhinorrhea or sore throat Cardiovascular Cardiovascular: Denies chest pain or palpitations Respiratory/Chest Respiratory/Chest: Denies cough or dyspnea Gastrointestinal Gastrointestinal: Denies abdominal pain, diarrhea, nausea or vomiting Genitourinary Genitourinary ED: Denies difficulty urinating or dysuria Musculoskeletal Musculoskeletal: Reports extremity pain and neck pain; Denies back pain Integumentary Denies Abrasions or rash Neurologic Neurologic: Reports paresthesias; Denies headache(s) Allergic/Immunologic Allergic/Immunologic ED: Denies lip swelling or urticaria EXAM Physical Exam Const Vital Signs: 09/29/21 18:01 Temperature 98.5 F Temperature Source Temporal Pulse Rate 95 Respiratory Rate 18 Blood Pressure 168/106 H Blood Pressure Mean 126 Pulse Ox 98 Oxygen Delivery Method Room Air Positive well nourished and well developed General Appearance ED: well developed HEENT Reports normocephalic and head/scalp atraumatic Eyes PERRL and EOMs intact bilaterally Neck supple Neck Narrative: Tenderness with palpable muscle spasm in the left cervical paraspinal muscles. Chest Wall inspection of chest normal and palpation of chest normal Resp normal respiratory effort and clear to auscultation bilaterally Cardio regular rate and regular rhythm GI normal to inspection, nondistended, normoactive bowel sounds Palpation: soft Back/Spine Back/Spine Narrative: Tenderness in the left upper thoracic paraspinal muscles with palpable spasm. No midline tenderness. Extremity normal to inspection Extremity Narrative: Muscular tenderness with palpation over the left upper arm. No significant edema. Full range of motion at all joints. Strong distal pulses and strong hand grasp. Normal sensation on testing. Neuro oriented x3 and no sensory deficits noted Sensorium / Orientation: alert Motor Exam: strength 5/5 throughout Psych mental status grossly normal Skin no rashes or lesions noted MDM MDM MDM Narrative Medical decision making narrative: C-spine and left shoulder x-rays obtained per nursing protocol. Radiography Diagnostic Testing: Clinical Impression(s) from Imaging Studies Shoulder X-Ray 09/29/21 18:06 IMPRESSION: Negative left shoulder x-rays. Electronically Signed: Ilir Ross MD at 18:31 EDT , Cervical Spine X-Ray 09/29/21 18:18 IMPRESSION: No evidence of acute fracture or spondylolisthesis. Electronically Signed: Ilir Ross MD at 18:32 EDT , Treatment and Re-Evaluation Narrative: C-spine and left shoulder x-rays per my interpretation are unremarkable. Radiology interpretation is reviewed. Test results discussed with the patient. She does have evidence of muscle spasm but no specific injury. She will be treated with Naprosyn, Palmer, Flexeril, Lidoderm patches. Initial dose is given here and prescription sent to pharmacy for her. Discharge Plan Triage Chief Complaint: Upper Extremity Injury ED Provider: Rosmery Cristobal Dx/Rx/DC Orders Clinical Impression: Muscle spasm, Cervical radiculopathy Instructions: ED Muscle Spasm, ED Radiculopathy, Cervical Prescriptions: New naproxen [Naprosyn] 500 mg tablet 500 mg PO BID PRN (Reason: pain) Qty: 20 0RF cyclobenzaprine 10 mg tablet 10 mg PO BID PRN (Reason: muscle spasm) Qty: 10 0RF hydrocodone-acetaminophen 5-325 mg tablet 1 tab PO Q6H PRN (Reason: pain) 3 Days Qty: 10 0RF lidocaine [Lidoderm] 5 % adhesive patch,medicated 1 patch topical DAILY Qty: 7 0RF Rx Instructions: leave on most painful area for up to 12 hrs No Action Caplet 1 TAB tablet 1 tab PO DAILY ibuprofen 600 MG tablet 600 mg PO Q6H PRN (Reason: Pain) Qty: 60 1RF norethindrone (contraceptive) 0.35 MG tablet 0.35 mg PO DAILY Qty: 1 3RF ondansetron 4 mg tablet,disintegrating 4 mg PO Q8H PRN (Reason: nausea and vomiting) 4 Days Qty: 10 0RF Primary Care Provider: Ashley Stovall Referrals: Ashley Stovall MD [Primary Care Provider] - 1 Week Disposition Disposition: Home, Self Care
[2021-09-29] MEDS: Naproxen 500 MG Tablet PO (20:02)
[2021-09-29] MEDS: HYDROcodone Bitartrate/Apap 5/325 Tablet PO (20:02)
[2021-09-29] MEDS: Lidocaine 5% Patch 1 PATCH TOPICAL (20:02)
[2021-09-29] MEDS: cycloBENZAPRine HCl 10 MG Tablet PO (20:02)
[2021-09-29 20:12] VITALS: RESP 16
== END 2021-09-29 20:13 | disposition home or self-care (01) ==
PROVIDERS: Emergency Provider Emergency Medicine; PCP Internal Medicine; Visit Provider Emergency Medicine
DX: M54.12 Radiculopathy, cervical region (principal); M62.838 Other muscle spasm
CPT/HCPCS: 72040; 73030; 99283

== ENCOUNTER 2023-03-01 16:42 | Emergency (ER) | payer MEDICAID, SELFPAY ==
[2023-03-01 16:43] VITALS: BP 158/104; PULSE 100; RESP 14; TEMP 36.8; O2SAT 99; BMI 38.3
--- NOTE | 2023-03-01 18:11 | ED.VIS.LOWEX ---
HPI History of Present Illness Chief Complaint: Lower Extremity Injury Narrative Narrative: 47-year-old female presenting with left lower leg pain. She states it starts in the fibular region and radiates distally. Sometimes it feels hot and cold. Sometimes it feels like it is tingling. Patient notes she has had a foot drop for about 2 weeks which is intermittent. Denies any direct trauma. She states is on her feet a lot at work. She specifically denies any calf or hamstring pain. No history of DVT/PE in the no current risk factors. No chest pain or shortness of breath. Patient states she was seen by urgent care and sent to the ED for evaluation. [facility] Medical History Migraines Home Medications Caplet 1 tab PO DAILY Check with primary doctor 11/17/18 [History Last Taken 05/18/19 09:30] ibuprofen 600 mg tablet 600 mg PO Q6H PRN Pain #60 tabs 06/18/19 [Rx Last Taken Unknown] norethindrone (contraceptive) 0.35 mg tablet 0.35 mg PO DAILY ##1 06/18/19 [Rx Last Taken Unknown] ondansetron 4 mg disintegrating tablet 4 mg PO Q8H PRN nausea and vomiting 4 days #10 tabs 09/28/20 [Rx Last Taken Unknown] cyclobenzaprine 10 mg tablet 10 mg PO BID PRN muscle spasm #10 tabs 09/29/21 [Rx Last Taken Unknown] hydrocodone-acetaminophen 5-325mg 5mg-325mg 1 tab PO Q6H PRN pain 3 days #10 tabs 09/29/21 [Rx Last Taken Unknown] lidocaine 5 % topical patch (Lidoderm) 1 patch topical DAILY #7 ea 09/29/21 [Rx Last Taken Unknown] naproxen 500 mg tablet (Naprosyn) 500 mg PO BID PRN pain #20 tabs 09/29/21 [Rx Last Taken Unknown] Allergy/AdvReac Type Severity Reaction Status Date / Time Penicillins Allergy Hives Verified 03/01/23 16:42 Social History Smoking Status: Never smoker ROS ROS ED Constitutional Constitutional ED: Denies chills, fever(s) or sweats Eyes Eyes: Denies blurry vision or change in vision ENT ENT ED: Denies ear pain or sore throat Cardiovascular Cardiovascular: Denies chest pain, palpitations or racing heartbeat Respiratory/Chest Respiratory/Chest: Denies cough, dyspnea or sputum Gastrointestinal Gastrointestinal: Denies abdominal pain, constipation, diarrhea, nausea or vomiting Genitourinary Genitourinary ED: Denies dysuria, hematuria or urinary frequency Musculoskeletal Musculoskeletal: Denies arthralgias, myalgias or neck pain Integumentary Denies abscess, Abrasions or rash Neurologic Neurologic: Reports other Details: Tingling in the left fibular region. ; Denies headache(s), paresthesias or weakness Psychiatric Psychiatric: Denies anxiety, depression, suicidal ideation or suicidal thoughts Endocrine Endocrinology: Denies polydipsia or polyuria EXAM Physical Exam Const Vital Signs: 03/01/23 16:43 Temperature 98.2 F Temperature Source Temporal Pulse Rate 100 Respiratory Rate 14 Blood Pressure 158/104 H Blood Pressure Mean 122 Pulse Ox 99 Oxygen Delivery Method Room Air Positive well nourished General Appearance ED: NAD HEENT Reports moist mucous membranes normocephalic and atraumatic Resp normal respiratory effort Cardio regular rate and regular rhythm Extremity Extremity Narrative: Tenderness to palpation over the fibular head. Reproducible radicular pain noted with palpation of the fibular head. Compartments are soft. No cords palpated. No bony tenderness. Neuro oriented x3 Sensorium / Orientation: alert Motor Exam: strength 5/5 throughout Psych mental status grossly normal Skin no wounds MDM MDM MDM Narrative Medical decision making narrative: Patient presenting with foot drop and tingling in the left lower leg. Physical exam and history consistent with peroneal nerve palsy. Patient counseled on findings. Patient counseled on home PT that she can use to help with the symptoms. I do not believe she needs any imaging today. She is amenable to this. She is discharged home to follow-up with PCP. Return precautions discussed. Impression: 1. Peroneal nerve palsy Lab Data Attestation: I reviewed the patient's lab results. Discharge Plan Triage Chief Complaint: Lower Extremity Injury ED Provider: Zachary Matias Dx/Rx/DC Orders Clinical Impression: Left peroneal nerve palsy Instructions: ED Peroneal Nerve Palsy Prescriptions: No Action Caplet 1 TAB tablet 1 tab PO DAILY ibuprofen 600 MG tablet 600 mg PO Q6H PRN (Reason: Pain) Qty: 60 1RF norethindrone (contraceptive) 0.35 MG tablet 0.35 mg PO DAILY Qty: 1 3RF ondansetron 4 mg tablet,disintegrating 4 mg PO Q8H PRN (Reason: nausea and vomiting) 4 Days Qty: 10 0RF naproxen [Naprosyn] 500 mg tablet 500 mg PO BID PRN (Reason: pain) Qty: 20 0RF cyclobenzaprine 10 mg tablet 10 mg PO BID PRN (Reason: muscle spasm) Qty: 10 0RF hydrocodone-acetaminophen 5-325 mg tablet 1 tab PO Q6H PRN (Reason: pain) 3 Days Qty: 10 0RF lidocaine [Lidoderm] 5 % adhesive patch,medicated 1 patch topical DAILY Qty: 7 0RF Rx Instructions: leave on most painful area for up to 12 hrs Primary Care Provider: Ashley Stovall Referrals: Ashley Stovall MD [Primary Care Provider] - Disposition Disposition: Home, Self Care
[2023-03-01 18:42] VITALS: RESP 18
== END 2023-03-01 19:08 | disposition home or self-care (01) ==
PROVIDERS: Emergency Provider Student in an Organized Health Care Education/Training Program; PCP Internal Medicine; Visit Provider Student in an Organized Health Care Education/Training Program
DX: G57.32 Lesion of lateral popliteal nerve, left lower limb (principal)
CPT/HCPCS: 99282

== ENCOUNTER 2023-05-23 13:06 | Emergency (ER) | payer MEDICAID, SELFPAY ==
[2023-05-23 13:07] VITALS: BP 132/91; PULSE 113; RESP 22; TEMP 37.2; O2SAT 97; BMI 39.8
--- NOTE | 2023-05-23 14:49 | EDS_ITS ---
HPI History of Present Illness Chief Complaint: Abd Pain Informant: patient Onset/Context/Timing Onset: Today Context: Sudden Onset Timing: Continuous Quality: Sharp, stabbing Location: Periumbilical Worsened by: Nothing Relieved by: Nothing Narrative Narrative: Patient presents with abdominal pain, nausea, vomiting, and diarrhea that began earlier this morning. Patient states her emesis is brown. Patient denies any bloody emesis or coffee-ground emesis. Patient admits to some diarrhea but denies any melena or hematochezia. Patient states her pain is mainly in the periumbilical area. Patient describes it as sharp and stabbing. Patient states nothing makes it better nothing makes it worse. Patient denies any dysuria, frequency, or hematuria. Patient admits to low-grade fevers at home of 100. [facility] Medical History (Updated 05/23/23 @ 18:[address] Jona Mayo, DO) Hypertension Migraines Home Medications Caplet 1 tab PO DAILY Check with primary doctor 11/17/18 [History Last Taken 05/18/19 09:30] ibuprofen 600 mg tablet 600 mg PO Q6H PRN Pain #60 tabs 06/18/19 [Rx Last Taken Unknown] norethindrone (contraceptive) 0.35 mg tablet 0.35 mg PO DAILY ##1 06/18/19 [Rx Last Taken Unknown] cyclobenzaprine 10 mg tablet 10 mg PO BID PRN muscle spasm #10 tabs 09/29/21 [Rx Last Taken Unknown] hydrocodone-acetaminophen 5-325mg 5mg-325mg 1 tab PO Q6H PRN pain 3 days #10 tabs 09/29/21 [Rx Last Taken Unknown] lidocaine 5 % topical patch (Lidoderm) 1 patch topical DAILY #7 ea 09/29/21 [Rx Last Taken Unknown] naproxen 500 mg tablet (Naprosyn) 500 mg PO BID PRN pain #20 tabs 09/29/21 [Rx Last Taken Unknown] omeprazole 20 mg capsule,delayed release 20 mg PO DAILY #30 CAPSULES 05/23/23 [Rx Last Taken Unknown] ondansetron 4 mg disintegrating tablet 4 mg PO Q8H PRN nausea and vomiting 4 days #10 tabs 05/23/23 [Rx Last Taken Unknown] Allergy/AdvReac Type Severity Reaction Status Date / Time Penicillins Allergy Hives Verified 05/23/23 13:06 Surgical History (Updated 05/23/23 @ 14:[address] Jona Mayo DO) History of herniorrhaphy Social History Smoking Status: Never smoker ROS ROS ED Constitutional Constitutional ED: Reports chills and fever(s) Eyes Eyes: Denies blurry vision or change in vision ENT ENT ED: Denies rhinorrhea or sore throat Cardiovascular Cardiovascular: Denies chest pain or palpitations Respiratory/Chest Respiratory/Chest: Denies cough or dyspnea Gastrointestinal Gastrointestinal: Reports abdominal pain, diarrhea, nausea and vomiting; Denies melena Genitourinary Genitourinary ED: Denies dysuria or hematuria Musculoskeletal Musculoskeletal: Denies back pain or neck pain Integumentary Denies abscess or rash Neurologic Neurologic: Reports headache(s); Denies weakness Allergic/Immunologic Allergic/Immunologic ED: Denies mouth swelling or urticaria EXAM Physical Exam Const Vital Signs: 05/23/23 13:07 05/23/23 16:00 Temperature 99 F Temperature Source Temporal Pulse Rate 113 H 112 H Respiratory Rate 22 H 12 Blood Pressure 132/91 H 142/90 H Blood Pressure Mean 104 107 Pulse Ox 97 98 Oxygen Delivery Method Room Air Room Air Positive well nourished, well developed and obese General Appearance ED: well developed and NAD Nutritional Appearance: obese HEENT Reports moist mucous membranes Neck supple and no JVD Resp normal respiratory effort and clear to auscultation bilaterally Cardio regular rate and regular rhythm GI non-distended Palpation: soft and tender periumbilical; Negative for guarding or rebound tenderness present Neuro oriented x3, CN's II-XII intact bilaterally and no sensory deficits noted Sensorium / Orientation: alert Motor Exam: strength 5/5 throughout Psych mental status grossly normal MDM MDM MDM Narrative Medical decision making narrative: Differential diagnosis includes gastroenteritis, gastrointestinal bleeding, anemia, electrolyte abnormality, dehydration, urinary tract infection, bowel obstruction, ureteral calculus, and bowel perforation. CBC will be obtained to assess for leukocytosis and anemia. Comprehensive metabolic profile will be obtained to assess for hepatic function, renal function, and electrolyte abnormality. Lipase will be obtained to assess for pancreatitis. Urinalysis will be obtained to assess for urinary tract infection and hematuria. CT scan of the abdomen pelvis will be obtained to assess for ureteral calculus, bowel obstruction, and perforation. Lab Data Attestation: I reviewed the patient's lab results. Lab results narrative: CBC was reviewed. There is a slight leukocytosis of 13.1. Comprehensive metabolic profile was reviewed. BUN was slightly elevated at 23. Creatinine was normal. AST was slightly elevated at 139, ALT was slightly elevated at 110, and alkaline phosphatase was slightly elevated at 128. Total bilirubin was normal at 1.0. Lipase was reviewed and was normal at 14. Urinalysis was reviewed. There are 5-10 squamous epithelial cells. There is no evidence of urinary tract infection or hematuria. Labs: Laboratory Results - last 24 hr 05/23/23 05/23/23 14:50 15:46 WBC 13.1 H RBC 5.12 Hgb 14.2 Hct 43.5 MCV 85.0 MCH 27.7 MCHC 32.6 RDW Std Deviation 40.6 RDW Coeff of Juni 13.2 Plt Count 317 MPV 10.3 Immature Gran % (Auto) 0.500 Neut % (Auto) 93.2 H Lymph % (Auto) 3.3 L [place] % (Auto) 2.8 Eos % (Auto) 0.0 Baso % (Auto) 0.2 Absolute Neuts (auto) 12.2 H Absolute Lymphs (auto) 0.43 L Nucleated RBC % 0 Sodium 139 Potassium 3.8 Chloride 104 Carbon Dioxide 25.0 Anion Gap 10 BUN 23 H Creatinine 0.69 Estim Creat Clear Calc 107.63 Est GFR (MDRD) Af Amer 118 Est GFR (MDRD) Non-Af 98 BUN/Creatinine Ratio 33.5 H Glucose 146 H Calcium 8.9 Total Bilirubin 1.00 AST 139 H ALT 110 H Alkaline Phosphatase 128 H Total Protein 8.1 Albumin 3.5 Globulin 4.6 H Albumin/Globulin Ratio 0.8 L Lipase 14 Urine Color Yellow Urine Clarity Sl. Cloudy Urine pH 5.0 Ur Specific [place] 1.025 Urine Protein 30 H Urine Glucose (UA) Normal Urine Ketones 50 H Urine Occult Blood 150 H Urine Nitrite Negative Urine Bilirubin 1 H Urine Urobilinogen Normal Ur Leukocyte Esterase 25 H Urine RBC 0-5 SEEN Urine WBC 0-5 SEEN Ur Squamous Epith Cells 5-10 SEEN Urine Bacteria 2+ Urine Mucus 1+ Radiography Diagnostic Testing: Clinical Impression(s) from Imaging Studies Abdomen/Pelvis CT 05/23/23 16:20 IMPRESSION: Fibroid uterus. Probable small right hepatic lobe hemangioma. Recommend dynamic contrast CT of the liver. Electronically Signed: Kj Joyce MD at 16:44 EST , CT scan of the abdomen pelvis was obtained. There is a fibroid uterus. There is a small right hepatic lobe hemangioma. There is no acute abnormality noted. This was interpreted by the radiologist and was also dependently reviewed by myself. Treatment and Re-Evaluation :: Patient was given IV fluids, morphine, and Zofran. Patient was feeling better on reevaluation. Patient was advised of her findings. Patient was given a prescription for omeprazole. Patient was instructed to follow-up with her primary care physician in 5 to 7 days. Patient understood and was agreeable with the plan. All questions were answered. Discharge Plan Triage Chief Complaint: Abd Pain ED Provider: Jona Mayo Dx/Rx/DC Orders Clinical Impression: Gastritis, Nausea and vomiting Instructions: ED Gastritis (Adult), ED Vomiting (Adult) Prescriptions: New omeprazole [omeprazole] 20 mg capsule,delayed release(DR/EC) 20 mg PO DAILY Qty: 30 0RF Continued ondansetron 4 mg tablet,disintegrating 4 mg PO Q8H PRN (Reason: nausea and vomiting) 4 Days Qty: 10 0RF No Action Caplet 1 TAB tablet 1 tab PO DAILY ibuprofen 600 MG tablet 600 mg PO Q6H PRN (Reason: Pain) Qty: 60 1RF norethindrone (contraceptive) 0.35 MG tablet 0.35 mg PO DAILY Qty: 1 3RF naproxen [Naprosyn] 500 mg tablet 500 mg PO BID PRN (Reason: pain) Qty: 20 0RF cyclobenzaprine 10 mg tablet 10 mg PO BID PRN (Reason: muscle spasm) Qty: 10 0RF hydrocodone-acetaminophen 5-325 mg tablet 1 tab PO Q6H PRN (Reason: pain) 3 Days Qty: 10 0RF lidocaine [Lidoderm] 5 % adhesive patch,medicated 1 patch topical DAILY Qty: 7 0RF Rx Instructions: leave on most painful area for up to 12 hrs Primary Care Provider: Ashley Stovall Referrals: Ashley Stovall MD [Primary Care Provider] - 5-7 Days Disposition Disposition: Home, Self Care
[2023-05-23] MEDS: Morphine 4 MG/ML Syringe IV (15:05)
[2023-05-23] MEDS: 0.9% Normal Saline (1000mL) 1,000 ML 1000 ML IV (15:05)
[2023-05-23] MEDS: Ondansetron 4 MG/2 ML Vial IV (15:05)
[2023-05-23 15:23] LABS: ALB/GLOB Ratio 0.8 RATIO (0.9-2.4); AST(SGOT) 139 U/L (15-37); Absolute Lymphocyte Count 0.43 X10^3/uL (0.83-4.51); Absolute Neutrophil Count 12.2 X10^3/uL (2.0-7.7); Alanine Aminotransfer ALT/SGPT 110 U/L (13-56); Albumin, Serum 3.5 g/dL (3.2-5.0); Alkaline Phosphatase 128 U/L (45-117); Anion Gap 10 (5-15); BUN 23 mg/dL (7-18); BUN/Creat Ratio 33.5 RATIO (10-20); Basophil# 0.03 X10^3/uL; Basophil% 0.2 % (0-1); Calcium,Total 8.9 mg/dL (8.5-10.1); Chloride 104 mmol/L (98-107); Creatinine, Serum 0.69 mg/dL (0.55-1.02); EST Glomerular Filtration Rate 98 mL/min (>60); Est Glom Filt Rate - Afr Amer 118 mL/min (>60); Estimated Creatinine Clearance 107.63 ml/min; Globulin 4.6 g/dL (2.2-4.2); Glucose 146 mg/dL (74-106); Hematocrit 43.5 % (37-47); Hemoglobin 14.2 g/dL (12.0-15.0); Lipase 14 U/L (13-75); Lymphocyte # 0.43 X10^3/ul (0.83-4.51); Lymphocyte % 3.3 % (19-41); Mean Corp Hgb Conc 32.6 g/dL (32-36); Mean Corpuscular Hgb 27.7 pg (27.0-32.0); Mean Platelet Vol. 10.3 fl (6.2-12.0); Monocyte# 0.37 X10^3/uL; Monocyte% 2.8 % (0-10); NRBC Flagged by Analyzer 0 % (0-5); Neutrophil # 12.21 X10^3/uL (2.7-7.7); Neutrophil % 93.2 % (47-70); POSITIVE DIFFERENTIAL YES; Platelet Count 317 K/mm3 (150-450); Potassium 3.8 mmol/L (3.5-5.1); Protein, Total 8.1 g/dL (6.4-8.2); RBC Distribution Width CV 13.2 % (11.6-14.6); RBC Distribution Width SD 40.6 fl (35.1-43.9); Red Blood Count 5.12 M/mm3 (4.2-5.4); Sodium Level 139 mmol/L (136-145); White Blood Count 13.1 K/mm3 (4.4-11.0)
[2023-05-23 16:00] VITALS: BP 142/90; PULSE 112; RESP 12; O2SAT 98
[2023-05-23 16:01] LABS: Color, Urine Yellow (Yellow); Glucose, Dipstick Normal (Normal); Ketone-Dipstick 50 mg/dl (Negative); Leukocyte Esterase-Dipstick 25 /ul (Negative); Nitrite-Dipstick Negative (Negative); Occult Blood-Urine 150 /ul (Negative); Protein-Dipstick 30 mg/dl (Negative); Specific Gravity, Urine 1.025 (1.002-1.030); Urine Clarity Sl. Cloudy (Clear); Urine Urobilinogen Normal (Normal)
[2023-05-23 16:07] LABS: Urine Bilirubin Dipstick 1 mg/dL (Negative)
[2023-05-23 16:10] LABS: Bacteria 2+ /hpf (None Seen); Red Blood Cells-Urine 0-5 SEEN /hpf (0-5); White Blood Cells 0-5 SEEN /hpf (0-5)
[2023-05-23 16:11] LABS: Mucous, Urine 1+ /hpf (<or=2+); Squamous Epithelial Cells - UA 5-10 SEEN /hpf (5-10)
--- NOTE | 2023-05-23 16:20 | CT_ITS ---
STUDY: CT ABDOMEN AND PELVIS WITH CONTRAST REASON FOR EXAM: Female, 47 years old. Abdominal pain RADIATION DOSAGE (If Supplied By Facility): CTDIvol = ( 16.46 ) mGy, DLP = ( 1283.83 ) mGycm TECHNIQUE: Transaxial images were obtained from the dome of the diaphragm to the symphysis pubis without oral contrast. IV 100mL [id number]-300 was administered. Sagittal and coronal images were reconstructed. Individualized dose optimization techniques were used for this CT. COMPARISON: None. FINDINGS: The visualized lung bases are unremarkable. The visualized portions of the heart are within normal limits. In the liver is a probable 1.2 cm hemangioma along the right inferior hepatic lobe. Recommend confirmation with dynamic contrast CT of the liver. There is non-visualization of the gallbladder, which may be secondary to either contraction or a prior cholecystectomy. Normal spleen. Normal pancreas. Normal bilateral adrenal glands. Normal right kidney. Normal left kidney. Incidental bilateral small renal cysts are seen. No stones. No hydronephrosis. Evaluation of the GI tract is limited by absence of oral contrast. Cannot exclude stomach wall thickening. No dilated loops of bowel or evidence for obstruction. Cannot exclude segmental thickening of the angel of the small or large bowel. Cannot exclude enteritis or colitis. Appendix within normal limits. Normal abdominal aorta. Normal inferior vena cava. Normal retroperitoneum. Normal urinary bladder. Heterogeneous enlarged uterus with a dominant 7.4 cm anterior uterine fibroid. The uterus measures 12.2 cm greatest dimension. IUD in normal position. Normal abdominal wall. There are diffuse degenerative changes of the visualized lumbar spine. CT/Abdomen/Pelvis W IV Cont ONLY IMPRESSION: Fibroid uterus. Probable small right hepatic lobe hemangioma. Recommend dynamic contrast CT of the liver. Electronically Signed: Kj Joyce MD at 16:44 EST ,
[2023-05-23 18:00] VITALS: BP 120/55; PULSE 12; RESP 12; O2SAT 99
[2023-05-23 18:43] VITALS: BP 124/83; PULSE 90; RESP 14; TEMP 36.6; O2SAT 100
--- OUTSIDE RECORDS SUMMARY | 2023-05-23 19:39 | XMS RPT_ITS | CCD ---
Author Name Unknown Address [address] [place] [address] Organization [facility] Care Team Providers Care Underlay Stitcher Name Role Phone Wilman FAUST, Ashley Primary Care Provider GANTA, ASHLEY Primary Care Unavailable OLDER, ASHLEY Attending Unavailable GANTA, ASHLEY Primary Care Unavailable OLDER, ASHLEY Referring Unavailable GANTA, ASHLEY Primary Care Unavailable NÉSTOR, TOI Attending Unavailable GANTA, ASHLEY Primary Care Unavailable NÉSTOR, TOI Referring Unavailable GANTA, ASHLEY Primary Care Unavailable SELF Referring Unavailable NÉSTOR, TOI Attending Unavailable GANTA, ASHLEY Primary Care Unavailable GANTA, ASHLEY Primary Care Unavailable DENBOW, VINCENT Attending Unavailable GANTA, ASHLEY Primary Care Unavailable DENBOW, VINCENT Attending Unavailable GANTA, ASHLEY Primary Care Unavailable DENBOW, VINCENT Referring Unavailable GANTA, ASHLEY Primary Care Unavailable DENBOW, VINCENT Referring Unavailable GANTA, ASHLEY Primary Care Unavailable GANTA, ASHLEY Primary Care Unavailable ALLI, BILLIE Attending Unavailable GANTA, ASHLEY Primary Care Unavailable GANTA, ASHLEY Primary Care Unavailable OLDER, ASHLEY Attending Unavailable GANTA, ASHLEY Primary Care Unavailable DENBOW, VINCENT Attending Unavailable GANTA, ASHLEY Primary Care Unavailable DENBOW, VINCENT Attending Unavailable GANTA, ASHLEY Primary Care Unavailable GANTA, ASHLEY Primary Care Unavailable Allergies Allergy Classification Reported Allergen(s) Allergy Type Date of Onset Reaction(s) Facility (4 sources) Penicillins; Translations: [PENICILLINS] Drug Intolerance 4 Rash, Hives [facility] Work Phone: (20 sources) Penicillins Drug Intolerance 4 Rash, Hives [facility] Work Phone: Medications Current Medications Medication Drug Class(es) Dates Sig (Normalized) Sig (Original) clindamycin 150 mg oral capsule (1 source) Lincosamide Antibacterial Start: 05-21-2022 End: 05-26-2022 take 3 capsules by mouth three times daily clindamycin (CLEOCIN) 150 mg capsule Indications: Dental infection Take 3 capsules by mouth three times daily for 5 days. 45 capsule 0 05/21/2022 05/26/2022 Active Completed/Discontinued Medications Medication Drug Class(es) Dates Sig (Normalized) Sig (Original) [id number] 200 actuat albuterol 0.09 mg/actuat metered dose inhaler (12 sources) beta2-Adrenergic Agonist Start: 03-25-2023 take 2 puff(s) by inhalation every six hours as needed for wheezing albuterol HFA (PROVENTIL HFA, VENTOLIN HFA) 90 mcg/actuation inhaler Indications: Acute cough Inhale 2 Puffs as instructed every 6 hours as needed for wheezing/shortnes s of breath. 1 Each 0 03/25/2023 Active Problems Active Problems Problem Classification Problem Date Documented Da te Episodic/Chronic Anxiety disorders (3 sources) Anxiety; Translations: [Anxiety disorder, unspecified] Onset: 4 02-05-2023 Chronic Chronic obstructive pulmonary disease and bronchiectasis (1 source) Bronchitis; Translations: [Bronchitis, not specified as acute or chronic] Episodic Conditions associated with dizziness or vertigo (4 sources) Dizziness; Translations: [Dizziness and giddiness] Onset: Episodic Disorders of lipid metabolism (20 sources) Pure hypercholesterolemia; Translations: [Pure hypercholesterolemia, unspecified] Onset: 5 01-12-2015 Chronic Esophageal disorders (2 sources) Gastroesophageal reflux disease without esophagitis; Translations: [Gastro-esophageal reflux disease without esophagitis] Onset: 4 02-05-2023 Chronic Essential hypertension (20 sources) Hypertensive disorder; Translations: [Essential (primary) hypertension] Onset: 4 03-13-2021 Chronic Genitourinary symptoms and ill-defined conditions (2 sources) Blood in urine; Translations: [Hematuria, unspecified] Episodic Immunizations and screening for infectious disease (1 source) Contact with or exposure to other viral diseases; Translations: [Exposure to 2019 novel coronavirus] Episodic Menstrual disorders (1 source) Missed period; Translations: [Irregular menstruation, unspecified] Chronic Nutritional deficiencies (3 sources) Vitamin D deficiency; Translations: [Vitamin D deficiency, unspecified] Onset: 4 Chronic Other aftercare (1 source) Encounter for therapeutic drug level monitoring; Translations: [Encounter for therapeutic drug monitoring] Onset: 4 Episodic Other connective tissue disease (1 source) Pain of left lower leg; Translations: [Pain in left lower leg] 03-01-2023 Episodic Other gastrointestinal disorders (3 sources) Stool finding; Translations: [Other fecal abnormalities] Episodic Other lower respiratory disease (2 sources) Cough; Translations: [Cough] Episodic Other lower respiratory disease (1 source) Wheezing; Translations: [Wheezing] Episodic Other lower respiratory disease (1 source) Dyspnea; Translations: [Shortness of breath] Episodic Other lower respiratory disease (2 sources) Apnea; Translations: [Apnea, not elsewhere classified] 09-28-2022 Episodic Other lower respiratory disease (1 source) Snoring; Translations: [Snoring] 09-28-2022 Episodic Other lower respiratory disease (1 source) Dyspnea, unspecified; Translations: [Dyspnea, unspecified type] Onset: 4 Episodic Other lower respiratory disease (1 source) Wheezing; Translations: [Wheezing] Onset: 4 Episodic Other nervous system disorders (2 sources) Paresthesia of upper limb; Translations: [Anesthesia of skin] Episodic Other nervous system disorders (1 source) Tremor; Translations: [Tremor, unspecified] Episodic Other nutritional; endocrine; and metabolic disorders (20 sources) Obese class II; Translations: [Obesity, unspecified] Onset: 2 05-19-2021 Chronic Other screening for suspected conditions (not mental disorders or infectious disease) (1 source) Patient encounter status; Translations: [Encounter for screening mammogram for malignant neoplasm of breast] Episodic Other upper respiratory disease (1 source) Seasonal allergy; Translations: [Other seasonal allergic rhinitis] 04-26-2023 Chronic Other upper respiratory infections (1 source) Chronic sinusitis; Translations: [Chronic sinusitis, unspecified] Chronic Other upper respiratory infections (1 source) Acute sinusitis; Translations: [Acute sinusitis, unspecified] Episodic Residual codes; unclassified (2 sources) Daytime somnolence; Translations: [Other hypersomnia] 09-28-2022 Chronic Residual codes; unclassified (1 source) Other hypersomnia; Translations: [Excessive daytime sleepiness] Onset: 3 Chronic Residual codes; unclassified (1 source) Family history of diabetes mellitus; Translations: [Family history of diabetes mellitus] Episodic Residual codes; unclassified (1 source) Disturbance in sleep behavior; Translations: [Sleep disorder, unspecified] 04-26-2023 Episodic Spondylosis; intervertebral disc disorders; other back problems (1 source) Chronic low back pain; Translations: [Lumbago with sciatica, right side] Episodic Unclassified (1 source) Acute cough; Translations: [Acute cough] Onset: Viral infection (1 source) Viral disease; Translations: [Viral infection, unspecified] 01-16-2023 Episodic Past or Other Problems Problem Classification Problem Date Documented Da te Episodic/Chronic Abdominal pain (7 sources) Abdominal tenderness; Translations: [Abdominal tenderness, unspecified site] Onset: 09-21-2022 Episodic Contraceptive and procreative management (20 sources) Sterilization requested; Translations: [Encounter for sterilization] Onset: 05-26-2019 05-26-2019 Episodic Nausea and vomiting (3 sources) Nausea; Translations: [Nausea] Onset: 09-21-2022 Episodic Other diseases of kidney and ureters (20 sources) Cyst of kidney; Translations: [Cyst of kidney, acquired] Onset: 03-16-2014 03-13-2021 Episodic Other gastrointestinal disorders (1 source) Other fecal abnormalities; Translations: [Change in stool] Onset: 09-21-2022 Episodic Other lower respiratory disease (1 source) Apnea, not elsewhere classified; Translations: [Witnessed episode of apnea] Onset: 10-19-2022 Episodic Other lower respiratory disease (1 source) Snoring; Translations: [Snoring] Onset: 10-19-2022 Episodic Other nervous system disorders (1 source) Tremor, unspecified; Translations: [Shakiness] Onset: 07-16-2022 Episodic Residual codes; unclassified (1 source) Family history of diabetes mellitus; Translations: [Family history of diabetes mellitus] Onset: 07-16-2022 Episodic Results Test Name Value Interpretation Reference Range Facil ity Vital Signs Date Time Vital Sign Value Performing Clinician Dain devries 04-26-2023 07:34-0500 Body height 154.9 cm Toi Néstor ADJUNCT PHYSICAL EDUCATION INSTRUCTOR.[employer] F[employer]ER Work Phone: [facility] 04-26-2023 07:34-0500 Body weight 94.8 kg Toi Néstor ADJUNCT PHYSICAL EDUCATION INSTRUCTOR.[employer] V[employer] F[employer]ER Work Phone: [facility] 04-26-2023 07:34-0500 Diastolic blood pressure 98 mm[Hg] Toi Néstor ADJUNCT PHYSICAL EDUCATION INSTRUCTOR.GL[employer] V[employer] FILLER Work Phone: [facility] 04-26-2023 07:34-0500 Heart rate 80 /min Toi Néstor ADJUNCT PHYSICAL EDUCATION INSTRUCTOR.GL[employer] V[employer] FILLER Work Phone: [facility] 04-26-2023 07:34-0500 Respiratory rate 16 /min Toi Néstor ADJUNCT PHYSICAL EDUCATION INSTRUCTOR.GLASS V[employer] FILLER Work Phone: [facility] 04-26-2023 07:34-0500 Systolic blood pressure 118 mm[Hg] Toi Néstor ADJUNCT PHYSICAL EDUCATION INSTRUCTOR.GL[employer] V[employer] FILLER Work Phone: [facility] 03-01-2023 16:02-0500 Body temperature 98.71 [degF] Rupal Smith ADJUNCT PHYSICAL EDUCATION INSTRUCTOR.GL[employer] V[employer] FILLER Work Phone: [facility] 03-01-2023 16:02-0500 Body weight 91.63 kg Rupal Smith ADJUNCT PHYSICAL EDUCATION INSTRUCTOR.GL[employer] V[employer] FILLER Work Phone: [facility] 03-01-2023 16:02-0500 Diastolic blood pressure 90 mm[Hg] Rupal Smith ADJUNCT PHYSICAL EDUCATION INSTRUCTOR.GL[employer] V[employer] FILLER Work Phone: [facility] 03-01-2023 16:02-0500 Heart rate 88 /min Rupal Smith ADJUNCT PHYSICAL EDUCATION INSTRUCTOR.GLASS V[employer] FILLER Work Phone: [facility] 03-01-2023 16:02-0500 Respiratory rate 18 /min Rupal Smith ADJUNCT PHYSICAL EDUCATION INSTRUCTOR.GLASS V[employer] FILLER Work Phone: [facility] 03-01-2023 16:02-0500 SaO2% (BldA) [Mass fraction] 98 % Rupal Smith ADJUNCT PHYSICAL EDUCATION INSTRUCTOR.GL[employer] V[employer] F[employer]ER Work Phone: [facility] 03-01-2023 16:02-0500 Systolic blood pressure 143 mm[Hg] Rupal Smith ADJUNCT PHYSICAL EDUCATION INSTRUCTOR.GL[employer] V[employer] FILLER Work Phone: [facility] 02-05-2023 08:34-0500 Body height 154.9 cm Vincent Denbow PA-C Work Phone: [facility] 02-05-2023 08:34-0500 Body temperature 97.59 [degF] Vincent Denbow PA-C Work Phone: [facility] 02-05-2023 08:34-0500 Body weight 92.08 kg Vincent Denbow PA-C Work Phone: [facility] 02-05-2023 08:34-0500 Diastolic blood pressure 70 mm[Hg] Vincent Denbow PA-C Work Phone: [facility] 02-05-2023 08:34-0500 Heart rate 85 /min Vincent Denbow PA-C Work Phone: [facility] 02-05-2023 08:34-0500 Respiratory rate 12 /min Vincent Denbow PA-C Work Phone: [facility] 02-05-2023 08:34-0500 SaO2% (BldA) [Mass fraction] 98 % Vincent Denbow PA-C Work Phone: [facility] 02-05-2023 08:34-0500 Systolic blood pressure 136 mm[Hg] Vincent Denbow PA-C Work Phone: [facility] 01-16-2023 10:15-0400 Body temperature 97.9 [degF] Efraín Cerrato ADJUNCT PHYSICAL EDUCATION INSTRUCTOR.[employer] F[employer]ER Work Phone: [facility] 01-16-2023 10:15-0400 Body weight 90.45 kg Efraín Cerrato ADJUNCT PHYSICAL EDUCATION INSTRUCTOR.GL[employer] V[employer] F[employer]ER Work Phone: [facility] 01-16-2023 10:15-0400 Diastolic blood pressure 88 mm[Hg] Efraín Cerrato ADJUNCT PHYSICAL EDUCATION INSTRUCTOR.GL[employer] V[employer] FILLER Work Phone: [facility] 01-16-2023 10:15-0400 Heart rate 90 /min Efraín Cerrato ADJUNCT PHYSICAL EDUCATION INSTRUCTOR.GLASS V[employer] FILLER Work Phone: [facility] 01-16-2023 10:15-0400 Respiratory rate 21 /min Efraín Hernandezalis ADJUNCT PHYSICAL EDUCATION INSTRUCTOR.GLASS V[employer] FILLER Work Phone: [facility] 01-16-2023 10:15-0400 SaO2% (BldA) [Mass fraction] 99 % Efraín Hernandezalis ADJUNCT PHYSICAL EDUCATION INSTRUCTOR.GLASS V[employer] FILLER Work Phone: [facility] 01-16-2023 10:15-0400 Systolic blood pressure 130 mm[Hg] Efraín Hernandezalis ADJUNCT PHYSICAL EDUCATION INSTRUCTOR.GLASS VIAL FILLER Work Phone: [facility] 12-21-2022 07:39-0400 Body weight 90.54 kg Vincent Denbow PA-C Work Phone: [facility] 12-21-2022 07:39-0400 Diastolic blood pressure 84 mm[Hg] Vincent Denbow PA-C Work Phone: [facility] 12-21-2022 07:39-0400 Heart rate 76 /min Vincent Denbow PA-C Work Phone: [facility] 12-21-2022 07:39-0400 Respiratory rate 16 /min Vincent Denbow PA-C Work Phone: [facility] 12-21-2022 07:39-0400 SaO2% (BldA) [Mass fraction] 96 % Vincent Denbow PA-C Work Phone: [facility] 12-21-2022 07:39-0400 Systolic blood pressure 122 mm[Hg] Vincent Denbow PA-C Work Phone: [facility] 09-28-2022 06:57-0400 Body height 154.9 cm Vincent Denbow PA-C Work Phone: [facility] 09-28-2022 06:57-0400 Body temperature 98.01 [degF] Vincent Denbow PA-C Work Phone: [facility] 09-28-2022 06:57-0400 Body weight 89.81 kg Vincent Denbow PA-C Work Phone: [facility] 09-28-2022 06:57-0400 Diastolic blood pressure 76 mm[Hg] Vincent Denbow PA-C Work Phone: [facility] 09-28-2022 06:57-0400 Heart rate 83 /min Vincent Denbow PA-C Work Phone: [facility] 09-28-2022 06:57-0400 Respiratory rate 12 /min Vincent Denbow PA-C Work Phone: [facility] 09-28-2022 06:57-0400 SaO2% (BldA) [Mass fraction] 98 % Vincent Denbow PA-C Work Phone: [facility] 09-28-2022 06:57-0400 Systolic blood pressure 122 mm[Hg] Vincent Denbow PA-C Work Phone: [facility] 09-21-2022 07:09-0400 Body height 154.9 cm Vinecnt Denbow PA-C Work Phone: [facility] 09-21-2022 07:09-0400 Body temperature 98.6 [degF] Vincent Denbow PA-C Work Phone: [facility] 09-21-2022 07:09-0400 Body weight 90.27 kg Vincent Denbow PA-C Work Phone: [facility] 09-21-2022 07:09-0400 Diastolic blood pressure 70 mm[Hg] Vincent Denbow PA-C Work Phone: [facility] 09-21-2022 07:09-0400 Heart rate 77 /min Vincent Denbow PA-C Work Phone: [facility] 09-21-2022 07:09-0400 Respiratory rate 12 /min Vincent Denbow PA-C Work Phone: [facility] 09-21-2022 07:09-0400 SaO2% (BldA) [Mass fraction] 96 % Vincent Denbow PA-C Work Phone: [facility] 09-21-2022 07:09-0400 Systolic blood pressure 126 mm[Hg] Vincent Guillermobow PA-C Work Phone: [facility] 07-16-2022 09:20-0400 Diastolic blood pressure 78 mm[Hg] Ashley Older ADJUNCT PHYSICAL EDUCATION INSTRUCTOR.GL[employer] V[employer] FILLER Work Phone: [facility] 07-16-2022 09:20-0400 Systolic blood pressure 122 mm[Hg] Ashley Older ADJUNCT PHYSICAL EDUCATION INSTRUCTOR.GL[employer] V[employer] FILLER Work Phone: [facility] 07-16-2022 08:54-0400 Body temperature 98.01 [degF] Ashley Older ADJUNCT PHYSICAL EDUCATION INSTRUCTOR.GLASS V[employer] FILLER Work Phone: [facility] 07-16-2022 08:54-0400 Body weight 90.72 kg Ashley Older ADJUNCT PHYSICAL EDUCATION INSTRUCTOR.GLASS VIAL FILLER Work Phone: [facility] 07-16-2022 08:54-0400 Heart rate 98 /min Ashley Older ADJUNCT PHYSICAL EDUCATION INSTRUCTOR.GLASS VIAL FILLER Work Phone: [facility] 07-16-2022 08:54-0400 Respiratory rate 16 /min Ashley Older ADJUNCT PHYSICAL EDUCATION INSTRUCTOR.GLASS VIAL FILLER Work Phone: [facility] 07-16-2022 08:54-0400 SaO2% (BldA) [Mass fraction] 95 % Ashley Older ADJUNCT PHYSICAL EDUCATION INSTRUCTOR.GLASS VIAL FILLER Work Phone: [facility] 05-07-2022 14:14-0500 Body temperature 98.71 [degF] Jennifer Athy PA-C Work Phone: [facility] 05-07-2022 14:14-0500 Body weight 88.54 kg Jennifer Athy PA-C Work Phone: [facility] 05-07-2022 14:14-0500 Diastolic blood pressure 98 mm[Hg] Jennifer Athy PA-C Work Phone: [facility] 05-07-2022 14:14-0500 Heart rate 103 /min Jennifer Athy PA-C Work Phone: [facility] 05-07-2022 14:14-0500 Respiratory rate 20 /min Jennifer Athy PA-C Work Phone: [facility] 05-07-2022 14:14-0500 SaO2% (BldA) [Mass fraction] 98 % Jennifer Roldany PA-C Work Phone: [facility] 05-07-2022 14:14-0500 Systolic blood pressure 142 mm[Hg] Jennifer Roldanfabio PA-C Work Phone: [facility] 04-25-2022 16:24-0500 Body weight 89.36 kg Ashley Older ADJUNCT PHYSICAL EDUCATION INSTRUCTOR.GLASS VIAL FILLER Work Phone: [facility] 04-25-2022 16:24-0500 Diastolic blood pressure 78 mm[Hg] Ashley Older ADJUNCT PHYSICAL EDUCATION INSTRUCTOR.GLASS VIAL FILLER Work Phone: [facility] 04-25-2022 16:24-0500 Heart rate 84 /min Ashley Older ADJUNCT PHYSICAL EDUCATION INSTRUCTOR.GLASS VIAL FILLER Work Phone: [facility] 04-25-2022 16:24-0500 Respiratory rate 16 /min Ashley Older ADJUNCT PHYSICAL EDUCATION INSTRUCTOR.GLASS VIAL FILLER Work Phone: [facility] 04-25-2022 16:24-0500 Systolic blood pressure 124 mm[Hg] Ashley Older ADJUNCT PHYSICAL EDUCATION INSTRUCTOR.GLASS VIAL FILLER Work Phone: [facility] 02-12-2022 07:51-0500 Body weight 88 kg Ashley Older ADJUNCT PHYSICAL EDUCATION INSTRUCTOR.GLASS VIAL FILLER Work Phone: [facility] 02-12-2022 07:51-0500 Diastolic blood pressure 86 mm[Hg] Ashley Older ADJUNCT PHYSICAL EDUCATION INSTRUCTOR.GLASS VIAL FILLER Work Phone: [facility] 02-12-2022 07:51-0500 Heart rate 88 /min Ashley Older ADJUNCT PHYSICAL EDUCATION INSTRUCTOR.GLASS VIAL FILLER Work Phone: [facility] 02-12-2022 07:51-0500 Respiratory rate 16 /min Ashley Older ADJUNCT PHYSICAL EDUCATION INSTRUCTOR.GLASS VIAL FILLER Work Phone: [facility] 02-12-2022 07:51-0500 Systolic blood pressure 120 mm[Hg] Ashley Older ADJUNCT PHYSICAL EDUCATION INSTRUCTOR.GLASS VIAL FILLER Work Phone: [facility] 01-15-2022 15:34-0400 Diastolic blood pressure 88 mm[Hg] Ashley Older ADJUNCT PHYSICAL EDUCATION INSTRUCTOR.GLASS VIAL FILLER Work Phone: [facility] 01-15-2022 15:34-0400 Systolic blood pressure 124 mm[Hg] Ashley Older ADJUNCT PHYSICAL EDUCATION INSTRUCTOR.GLASS VIAL FILLER Work Phone: [facility] 01-15-2022 15:12-0400 Body temperature 98.6 [degF] Ashley Older ADJUNCT PHYSICAL EDUCATION INSTRUCTOR.GLASS VIAL FILLER Work Phone: [facility] 01-15-2022 15:12-0400 Body weight 88.45 kg Ashley Older ADJUNCT PHYSICAL EDUCATION INSTRUCTOR.GLASS VIAL FILLER Work Phone: [facility] 01-15-2022 15:12-0400 Heart rate 95 /min Ashley Older ADJUNCT PHYSICAL EDUCATION INSTRUCTOR.GLASS VIAL FILLER Work Phone: [facility] 01-15-2022 15:12-0400 Respiratory rate 16 /min Ashley Older ADJUNCT PHYSICAL EDUCATION INSTRUCTOR.GLASS VIAL FILLER Work Phone: [facility] 01-15-2022 15:12-0400 SaO2% (BldA) [Mass fraction] 98 % Ashley Older ADJUNCT PHYSICAL EDUCATION INSTRUCTOR.GLASS VIAL FILLER Work Phone: [facility] 01-11-2022 15:47-0400 Body temperature 98.49 [degF] Claudia Richardson ADJUNCT PHYSICAL EDUCATION INSTRUCTOR.GLASS VIAL FILLER Work Phone: [facility] 01-11-2022 15:47-0400 Body weight 90.27 kg Claudia Richardson ADJUNCT PHYSICAL EDUCATION INSTRUCTOR.GLASS V[employer] FILLER Work Phone: [facility] 01-11-2022 15:47-0400 Diastolic blood pressure 82 mm[Hg] Claudia Richardson ADJUNCT PHYSICAL EDUCATION INSTRUCTOR.GLASS V[employer] FILLER Work Phone: [facility] 01-11-2022 15:47-0400 Heart rate 93 /min Claudia Richardson ADJUNCT PHYSICAL EDUCATION INSTRUCTOR.GLASS VIAL FILLER Work Phone: [facility] 01-11-2022 15:47-0400 Respiratory rate 18 /min Claudia Richardson ADJUNCT PHYSICAL EDUCATION INSTRUCTOR.GLASS VIAL FILLER Work Phone: [facility] 01-11-2022 15:47-0400 SaO2% (BldA) [Mass fraction] 98 % Claudia Richardson APRN.GLASS VIAL FILLER Work Phone: [facility] 01-11-2022 15:47-0400 Systolic blood pressure 128 mm[Hg] Claudia Richardson ADJUNCT PHYSICAL EDUCATION INSTRUCTOR.GLASS VIAL FILLER Work Phone: [facility] 09-29-2021 17:46-0400 Body temperature 98.6 [degF] Shawnee Ignacio APRN.GL[employer] V[employer] FILLER Work Phone: [facility] 09-29-2021 17:46-0400 Body weight 91.17 kg Shawnee Ignacio APRN.GLASS V[employer] FILLER Work Phone: [facility] 09-29-2021 17:46-0400 Diastolic blood pressure 98 mm[Hg] Shawnee Ignacio APRN.GLASS V[employer] FILLER Work Phone: [facility] 09-29-2021 17:46-0400 Heart rate 90 /min Shawnee Ignacio APRN.GLASS V[employer] FILLER Work Phone: [facility] 09-29-2021 17:46-0400 Respiratory rate 20 /min Shawnee Ignacio APRN.GLASS VIAL FILLER Work Phone: [facility] 09-29-2021 17:46-0400 SaO2% (BldA) [Mass fraction] 98 % Shawnee Ignacio APRN.GLASS VIAL FILLER Work Phone: [facility] 09-29-2021 17:46-0400 Systolic blood pressure 138 mm[Hg] Shawnee Ignacio APRN.GLASS VIAL FILLER Work Phone: [facility] 07-28-2021 09:28-0400 Body temperature 98.01 [degF] Kieran Michaud APRN.GLASS V[employer] FILLER Work Phone: [facility] 07-28-2021 09:28-0400 Body weight 92.53 kg Kieran Michaud APRN.GLASS VIAL FILLER Work Phone: [facility] 07-28-2021 09:28-0400 Diastolic blood pressure 70 mm[Hg] Kieran Michaud APRN.GL[employer] V[employer] FILLER Work Phone: [facility] 07-28-2021 09:28-0400 Heart rate 110 /min Kieran Michaud ADJUNCT PHYSICAL EDUCATION INSTRUCTOR.GLASS V[employer] FILLER Work Phone: [facility] 07-28-2021 09:28-0400 Respiratory rate 16 /min Kieran Michaud ADJUNCT PHYSICAL EDUCATION INSTRUCTOR.GLASS VIAL FILLER Work Phone: [facility] 07-28-2021 09:28-0400 SaO2% (BldA) [Mass fraction] 97 % Kieran Michaud ADJUNCT PHYSICAL EDUCATION INSTRUCTOR.GLASS VIAL FILLER Work Phone: [facility] 07-28-2021 09:28-0400 Systolic blood pressure 122 mm[Hg] Kieran Michaud ADJUNCT PHYSICAL EDUCATION INSTRUCTOR.GLASS VIAL FILLER Work Phone: [facility] 06-16-2021 [id number] Body weight 93.44 kg Billie Ma ADJUNCT PHYSICAL EDUCATION INSTRUCTOR.GLASS VIAL FILLER Work Phone: [facility] 06-16-2021 10:09-0400 Diastolic blood pressure 70 mm[Hg] Billie Walkercalf ADJUNCT PHYSICAL EDUCATION INSTRUCTOR.GLASS VIAL FILLER Work Phone: [facility] 06-16-2021 10:090400 Systolic blood pressure 120 mm[Hg] Billie Walkercalf ADJUNCT PHYSICAL EDUCATION INSTRUCTOR.GLASS VIAL FILLER Work Phone: [facility] Encounters Encounter Date Encounter Type Care Provider Facility Start: 05-07-2023 ambulatory Ashley Garcia Work Phone: Internal Medicine [facility] Start: 04-26-2023 End: 04-26-2023 ambulatory SELF Facility:[facility] Start: 04-26-2023 End: 04-26-2023 Patient encounter procedure Toi Palm ADJUNCT PHYSICAL EDUCATION INSTRUCTOR.GLASS VIAL FILLER Work Phone: Internal Medicine [place] Procedures Date Procedure Procedure Detail Performing Clinician Start: 01-16-2023 COVID & INFLUENZA A/ B NAAT, ROUTINE Efraín Cerrato ADJUNCT PHYSICAL EDUCATION INSTRUCTOR.GLASS VIAL FILLER Work Phone: Start: 05-07-2022 COVID WITH FLUA+B, ROUTINE Jennifer Orellana PA-C Work Phone: Start: 05-02-2022 Us pelvic nonobstetr ic image dcmtn limited/f/u Ashley Rodriguez ADJUNCT PHYSICAL EDUCATION INSTRUCTOR.GLASS VIAL FILLER Work Phone: Start: 04-25-2022 End: 04-25-2022 Urnls dip stick/tablet rgnt auto w/o microscopy Ashley Quoc ADJUNCT PHYSICAL EDUCATION INSTRUCTOR.GLASS VIAL FILLER Work Phone: Start: 07-28-2021 Radiologic exam ches t 2 views Kieran Michaud ADJUNCT PHYSICAL EDUCATION INSTRUCTOR.GLASS VIAL FILLER Work Phone: Start: 06-16-2021 Urine test visual color cmprsn meths Billie Ma ADJUNCT PHYSICAL EDUCATION INSTRUCTOR.GLASS VIAL FILLER Work Phone: Start: 06-02-2021 Lipid 1996 panel - S phill or Plasma Vincent Page PA-C Work Phone: Start: 05-26-2021 Mammography Katelyn cool MD Work Phone: Start: 05-19-2021 Adult depression scr eening assessment Katelyn Gomez MD Work Phone: Plan of Treatment Date Care Activity Detail Author Start: 04-29-2029 Urine microalbumin profile [facility] Start: 05-23-2027 HPV TESTING HPV TESTING [facility] Start: 05-23-2027 PAP TESTING PAP TESTING [facility] Start: 05-23-2027 Screening for malignant neoplasm of cervix [facility] Start: 06-02-2026 Lipid 1996 panel - Serum or Plasma Lipid Screening [facility] Start: 06-02-2026 Lipid panel Lipid Screening [facility] Start: 06-02-2026 LIPID SCREEN LIPID SCREEN [facility] Start: 04-12-2026 Diabetes Screening Diabetes Screening [facility] Start: 09-21-2025 DIABETES SCREEN DIABETES SCREEN [facility] Start: 09-21-2025 Diabetes Screening Diabetes Screening [facility] Start: 06-02-2024 DIABETES SCREEN DIABETES SCREEN [facility] Start: 04-26-2024 Annual PCP Team Chronic Disease Visit Annual PCP Team Chronic Disease Visit [facility] Start: 02-06-2024 Annual PCP Team Chronic Disease Visit Annual PCP Team Chronic Disease Visit [facility] Start: 12-22-2023 Annual PCP Team Chronic Disease Visit Annual PCP Team Chronic Disease Visit [facility] Start: 09-29-2023 ANNUAL PCP TEAM CHRONIC DISEASE VISIT ANNUAL PCP TEAM CHRONIC DISEASE VISIT [facility] Start: 09-29-2023 BP CONTROLLED (<130/80) BP CONTROLLED (<130/80) [facility] Start: 09-22-2023 ANNUAL PCP TEAM CHRONIC DISEASE VISIT ANNUAL PCP TEAM CHRONIC DISEASE VISIT [facility] Start: 09-22-2023 BP CONTROLLED (<130/80) BP CONTROLLED (<130/80) [facility] Start: 07-17-2023 ANNUAL PCP TEAM CHRONIC DISEASE VISIT ANNUAL PCP TEAM CHRONIC DISEASE VISIT [facility] Start: 07-17-2023 BP CONTROLLED (<130/80) BP CONTROLLED (<130/80) [facility] Start: 05-07-2023 End: 08-06-2023 Lipid 1996 panel - Serum or Plasma LIPID PANEL BASIC Lab Routine Pure hypercholesterolemia Expected: 05/07/2023, Expires: 08/06/2023 [facility] Work Phone: Immunizations Immunization Date Immunization Notes Care Provider Fa cilirenato 04-29-2019 tetanus toxoid, redu maciej diphtheria toxoid, and acellular pertussis vaccine, adsorbed Katelyn Gomez MD Work Phone: [facility] 03-01-2019 diphtheria, tetanus toxoids and acellular pertussis vaccine Vincent Denbow PA-C Work Phone: [facility] 03-01-2019 diphtheria, tetanus toxoids and pertussis vaccine Vincent Denbow PA-C Work Phone: [facility] 09-03-2018 tetanus toxoid, redu maciej diphtheria toxoid, and acellular pertussis vaccine, adsorbed Katelyn Gomez MD Work Phone: [facility] Work Phone: 04-02-2017 influenza virus vaccine, unspecified formulation Vincent Denbow PA-C Work Phone: [facility] 01-12-2015 influenza, injectabl e, quadrivalent, contains preservative Katelyn Gomez MD Work Phone: [facility] Work Phone: 10-24-2012 tetanus toxoid, redu maciej diphtheria toxoid, and acellular pertussis vaccine, adsorbed Vincent Denbow PA-C Work Phone: [facility] Payers Date Payer Category Payer Medicaid [id number] 2018 Medicaid [place] [employer] [facility] [place] [employer] [id number] 2018-Present [phone] [address] [place] [address] Medicaid [id number] 2018 Medicaid [id number] Social History Date Type Detail Facility Start: 11-26-2013 End: 01-11-2022 Tobacco smoking status NHIS Never smoked tobacco [facility] Work Phone: Start: 11-26-2013 End: 01-11-2022 Tobacco use and exposure Smokeless tobacco non-user [facility] Work Phone: Start: 06-02-2021 End: 04-26-2023 Alcohol intake Current non-drinker of alcohol (finding) [facility] Start: 1975 Sex Assigned At Not on file [facility] Start: 06-06-2021 End: 07-28-2021 Exposure to SARS-CoV-2 (event) Not sure [facility] Work Phone: Start: 08-20-2022 End: 09-28-2022 History of Social function [facility] Work Phone: Start: 08-20-2022 End: 09-28-2022 Tobacco use panel [facility] Work Phone: Adult Depression Screening Assessment 0 [facility] Work Phone: Clinical Notes 05-11-2019 to 05-07-2023 Toi Palm APRN.GLASS VIAL FILLER - 04/26/2023 7:45 AM Rupal Briceño APRN.GLASS VIAL FILLER - 03/01/2023 4:15 PM Vincent Melara PA-C - 02/05/2023 8:42 AM ESTPatient InstructionsPatient Instructions Note Date & Type Note Facility 05-07-2023 Note Patient Outreach (IN [facility]) BRIGIDO YOST ([id number]) 1975 F Date Time Provider Department 05/07/23 ASHLEY FOLEY During your visit today, we recorded the following information about you: Allergies As of Date: 05/07/2023 Noted Allergy Reaction PENICILLINS 11/26/2013 2 - Rash 4 - Hives Date Reviewed: 04/26/2023 Reviewed by: Toi Palm APRN.GLASS VIAL FILLER - Fully Assessed Visit Diagnosis:Pure hypercholesterolemia [E78.00] Order(s):LIPID PANEL BASIC [SQLIPB] Order #: [id number] FUTURE Prescriptions as of 05/10/2023 - amLODIPine (NORVASC) 10 mg tablet Take 1 tablet by mouth once daily. - Cholecalciferol, Vitamin D3, 125 mcg (5,000 unit) cap Take 1 capsule by mouth once daily. - fluticasone (FLOVENT) 110 mcg/actuation inhaler Inhale 2 Puffs as instructed two times a day. Shake well before use. Rinse mouth after use. - FLUoxetine (PROZAC) 20 mg capsule Take 1 capsule by mouth once daily. - omeprazole (PRILOSEC) 20 mg capsule Take 1 capsule by mouth daily before breakfast. 1/2 hr before meal. - albuterol HFA (PROVENTIL HFA, VENTOLIN HFA) 90 mcg/actuation inhaler Inhale 2 Puffs as instructed every 6 hours as needed for wheezing/shortness of breath. - meclizine (ANTIVERT) 25 mg tab Take 1 tablet by mouth every 6 hours as needed (dizziness). - cyclobenzaprine (FLEXERIL) 10 mg tablet Take 1 tablet by mouth three times daily as needed for muscle spasm. - loperamide (IMODIUM A-D) 2 mg cap(s) Take 1 capsule by mouth four times daily as needed for diarrhea (or cramping/loose stools). - levonorgestrel (MIRENA) 20 mcg/24 hours (7 yrs) 52 mg IUD 1 Each by INTRAUTERINE route as directed. Problem List As Of Date 05/07/2023 Noted Resolved Hypertension [I10] 03/16/2014 Kidney cysts [N28.1] 03/16/2014 Hyperlipidemia LDL goal < 130 [E78.5] 03/16/2014 10/11/2014 Pure hypercholesterolemia [E78.00] 01/12/2015 UTI (urinary tract infection) in , ant*02/10/2019 06/02/2021 Advanced maternal age in multigravida [O09.529] 03/04/2019 06/02/2021 Polyhydramnios in third trimester [O40.3XX0] 05/11/2019 06/02/2021 Request for sterilization [Z30.2] 05/26/2019 Obesity, Class II, BMI 35-39.9 [E66.9] 05/19/2021 Encounter Status:Closed by [email or web address] on 05/10/23 [facility] 04-26-2023 Note HNO ID: [id number] Author: TOI PALM APRN.GLASS VIAL FILLER Service: ? Author Type: Nurse Practitioner Type: Progress Notes Filed: 04/26/2023 08:12 Note Text: SUBJECTIVE Brigido Yost is a 47 year old female here today for a check up on her medical problems. Chief Complaint Patient presents with: 2 week follow up HPI Brigido Yost is a 47 year old female. She presents today for a 2 week follow up. Last visit she had concerns of dizziness. Bp was elevated. Amlodipine was started. Checked labs. Vitamin d was low. MRI was ordered. Dizziness is improved with improved blood pressure readings. MRI was denied by insurance. Overall she is feeling better with the amlodipine but still has some dizziness and fatigue but is not getting good sleep due to sleep broken (has a toddler who is not sleeping well). Mood is overall stable. Taking her Prozac. Some allergy issues. Wondering what she can take to help this. Depression Screening PHQ-2 Score 04/26/2023 0 Depression screening tool completed and reviewed. Based on score and interview, patient is not at risk for depression. Screening tool discussed with patient, and I recommended no further intervention at this time. Her medications were reviewed today and her list is now up to date. Medications Current Outpatient Medications Medication Sig fluticasone (FLOVENT) 110 mcg/actuation inhaler Inhale 2 Puffs as instructed two times a day. Shake well before use. Rinse mouth after use. FLUoxetine (PROZAC) 20 mg capsule Take 1 capsule by mouth once daily. omeprazole (PRILOSEC) 20 mg capsule Take 1 capsule by mouth daily before breakfast. 1/2 hr before meal. albuterol HFA (PROVENTIL HFA, VENTOLIN HFA) 90 mcg/actuation inhaler Inhale 2 Puffs as instructed every 6 hours as needed for wheezing/shortness of breath. meclizine (ANTIVERT) 25 mg tab Take 1 tablet by mouth every 6 hours as needed (dizziness). cyclobenzaprine (FLEXERIL) 10 mg tablet Take 1 tablet by mouth three times daily as needed for muscle spasm. loperamide (IMODIUM A-D) 2 mg cap(s) Take 1 capsule by mouth four times daily as needed for diarrhea (or cramping/loose stools). levonorgestrel (MIRENA) 20 mcg/24 hours (7 yrs) 52 mg IUD 1 Each by INTRAUTERINE route as directed. amLODIPine (NORVASC) 10 mg tablet Take 1 tablet by mouth once daily. Cholecalciferol, Vitamin D3, 125 mcg (5,000 unit) cap Take 1 capsule by mouth once daily. No current facility-administered medications for this visit. ALLERGIES Allergen Reactions Penicillins Rash, Hives ACTIVE PROBLEM LIST Obesity, Class II, Bmi 35-39.9 - 05/19/2021 Request for Sterilization - 05/26/2019 Comment: 05/26/19 - Title 19 papers signed today - Anjana Ignacio MD Pure Hypercholesterolemia - 01/12/2015 Hypertension - 03/16/2014 Comment: Patient was diagnosed with hypertension 2009, when her when she was heavier, 60 pounds atleast, She has been off them medication for the past 1 month at least and her bp which she checked intermittently was very good, Even today it is good. Kidney Cysts - 03/16/2014 Comment: Patient was evaluated in 2013 for back pain and found to have multiple cysts of the kidney b/l She has no family members on dialysis, kidney cysts, and other issues. Social History Tobacco Use Smoking status: Never Smokeless tobacco: Never Vaping Use Vaping Use: Never used Substance Use Topics Alcohol use: No Drug use: No Review of Systems Constitutional: Positive for fatigue. Negative for activity change, appetite change, chills, diaphoresis, fever and unexpected weight change. Respiratory: Negative. Cardiovascular: Negative. Neurological: Positive for dizziness. OBJECTIVE BP 118/98 Pulse 80 Resp 16 Ht 5' 1 (1.55m) Wt 209 lb (94.8kg) LMP 02/28/2023 BMI 39.51 kg/(m2). Physical Exam Vitals and nursing note reviewed. Constitutional: General: She is awake. She is not in acute distress. Appearance: Normal appearance. She is well-developed and well-groomed. She is not ill-appearing, toxic-appearing or diaphoretic. HENT: Head: Normocephalic. Right Ear: External ear normal. Left Ear: External ear normal. Nose: Nose normal. Eyes: General: Vision grossly intact. Conjunctiva/sclera: Conjunctivae normal. Pupils: Pupils are equal, round, and reactive to light. Neck: Vascular: No JVD. Trachea: Trachea normal. Cardiovascular: Rate and Rhythm: Normal rate and regular rhythm. Pulses: Normal pulses. Heart sounds: Normal heart sounds. No murmur heard. Pulmonary: Effort: Pulmonary effort is normal. No accessory muscle usage, prolonged expiration or respiratory distress. Breath sounds: Normal breath sounds. Musculoskeletal: Cervical back: Neck supple. Skin: General: Skin is warm and dry. Capillary Refill: Capillary refill takes less than 2 seconds. Neurological: General: No focal deficit present. Mental Status: She is alert and oriente (more content not included)... [facility] 04-26-2023 History of Present illness Narrative SUBJECTIVE Brigido Yost is a 47 year old female here today for a check up on her medical problems. Chief Complaint Patient presents with: 2 week follow up HPI Brigido Yost is a 47 year old female. She presents today for a 2 week follow up. Last visit she had concerns of dizziness. Bp was elevated. Amlodipine was started. Checked labs. Vitamin d was low. MRI was ordered. Dizziness is improved with improved blood pressure readings. MRI was denied by insurance. Overall she is feeling better with the amlodipine but still has some dizziness and fatigue but is not getting good sleep due to sleep broken (has a toddler who is not sleeping well). Mood is overall stable. Taking her Prozac. Some allergy issues. Wondering what she can take to help this. Depression Screening PHQ-2 Score 04/26/2023 0 Depression screening tool completed and reviewed. Based on score and interview, patient is not at risk for depression. Screening tool discussed with patient, and I recommended no further intervention at this time. Her medications were reviewed today and her list is now up to date. Medications Current Outpatient Medications Medication Sig fluticasone (FLOVENT) 110 mcg/actuation inhaler Inhale 2 Puffs as instructed two times a day. Shake well before use. Rinse mouth after use. FLUoxetine (PROZAC) 20 mg capsule Take 1 capsule by mouth once daily. omeprazole (PRILOSEC) 20 mg capsule Take 1 capsule by mouth daily before breakfast. 1/2 hr before meal. albuterol HFA (PROVENTIL HFA, VENTOLIN HFA) 90 mcg/actuation inhaler Inhale 2 Puffs as instructed every 6 hours as needed for wheezing/shortness of breath. meclizine (ANTIVERT) 25 mg tab Take 1 tablet by mouth every 6 hours as needed (dizziness). cyclobenzaprine (FLEXERIL) 10 mg tablet Take 1 tablet by mouth three times daily as needed for muscle spasm. loperamide (IMODIUM A-D) 2 mg cap(s) Take 1 capsule by mouth four times daily as needed for diarrhea (or cramping/loose stools). levonorgestrel (MIRENA) 20 mcg/24 hours (7 yrs) 52 mg IUD 1 Each by INTRAUTERINE route as directed. amLODIPine (NORVASC) 10 mg tablet Take 1 tablet by mouth once daily. Cholecalciferol, Vitamin D3, 125 mcg (5,000 unit) cap Take 1 capsule by mouth once daily. No current facility-administered medications for this visit. ALLERGIES Allergen Reactions Penicillins Rash, Hives ACTIVE PROBLEM LIST Obesity, Class II, Bmi 35-39.9 - 05/19/2021 Request for Sterilization - 05/26/2019 Comment: 05/26/19 - Title 19 papers signed today - Anjana Ignacio MD Pure Hypercholesterolemia - 01/12/2015 Hypertension - 03/16/2014 Comment: Patient was diagnosed with hypertension 2009, when her when she was heavier, 60 pounds atleast, She has been off them medication for the past 1 month at least and her bp which she checked intermittently was very good, Even today it is good. Kidney Cysts - 03/16/2014 Comment: Patient was evaluated in 2013 for back pain and found to have multiple cysts of the kidney b/l She has no family members on dialysis, kidney cysts, and other issues. Social History Tobacco Use Smoking status: Never Smokeless tobacco: Never Vaping Use Vaping Use: Never used Substance Use Topics Alcohol use: No Drug use: No Review of Systems Constitutional: Positive for fatigue. Negative for activity change, appetite change, chills, diaphoresis, fever and unexpected weight change. Respiratory: Negative. Cardiovascular: Negative. Neurological: Positive for dizziness. OBJECTIVE BP 118/98 Pulse 80 Resp 16 Ht 5' 1 (1.55m) Wt 209 lb (94.8kg) LMP 02/28/2023 BMI 39.51 kg/(m^2). Physical Exam Vitals and nursing note reviewed. Constitutional: General: She is awake. She is not in acute distress. Appearance: Normal appearance. She is well-developed and well-groomed. She is not ill-appearing, toxic-appearing or diaphoretic. HENT: Head: Normocephalic. Right Ear: External ear normal. Left Ear: External ear normal. Nose: Nose normal. Eyes: General: Vision grossly intact. Conjunctiva/sclera: Conjunctivae normal. Pupils: Pupils are equal, round, and reactive to light. Neck: Vascular: No JVD. Trachea: Trachea normal. Cardiovascular: Rate and Rhythm: Normal rate and regular rhythm. Pulses: Normal pulses. Heart sounds: Normal heart sounds. No murmur heard. Pulmonary: Effort: Pulmonary effort is normal. No accessory muscle usage, prolonged expiration or respiratory distress. Breath sounds: Normal breath sounds. Musculoskeletal: Cervical back: Neck supple. Skin: General: Skin is warm and dry. Capillary Refill: Capillary refill takes less than 2 seconds. Neurological: General: No focal deficit present. Mental Status: She is alert and oriented to person, place, and time. Mental status is at baseline. Psychiatric: Attention and Perception: Attention and perception normal. Mood and Affect: Mood and affect normal. Speech: Speech normal. Behavior: Behavior normal. Behavior is cooperative. Thought Content: Thought content normal. Cognition and Memory: Cognition and memory normal. Judgment: Judgment normal. ASSESSMENT/PLAN: 1. Primary hypertension - ICD9: 401.9, ICD10: I10 (primary diagnosis) - Improving control, stable but better control would be ideal. - Increase amlodipine - Recommend home blood pressure monitoring, to bring results to next visit - Encouraged sodium restriction, DASH or Mediterranean diet - Recommend regular aerobic exercise - AMLODIPINE 10 MG TABLET 2. Vitamin D deficiency - ICD9: 268.9, ICD10: E55.9 Start supplemental vitamin d, RX sent. 3. Dizziness - ICD9: 780.4, ICD10: R42 Overall improving and stable, increase amlodipine to further improve bp control, can cancel MRI since bp control is alleviating dizziness. 4. Anxiety - ICD9: 300.00, ICD10: F41.9 Stable on Prozac. 5. Sleep disturbance - ICD9: 780.50, ICD10: G47.9 Planning to address with upcoming well child check. 6. Seasonal allergies - ICD9: 477.9, ICD10: J30.2 Discussed trying OTC Jannette or alternative, avoid decongestants that might increase bp. Portions of this note have been entered by ancillary staff. I have reviewed and when necessary edited, so that they are an adequate record of my encounter with this patient Please note that parts of this document were created using voice recognition software and therefore may contain grammatical errors. Patient verbalizes understanding of instructions from today's visit and in agreement with treatment plan. Questions answered. Agrees to call the office if questions, concerns of issues with acute symptoms not improving or if they worsen. See diagnoses and orders for additional plan(s). Allergies and medications were reviewed, list was updated, and refills given if needed. Past medical, surgical, social, and family history reviewed and updated as appropriate. Encouraged proper diet & exercise as well as compliance with taking medications. Age-appropriate health preventative measures were discussed. Return in about 4 weeks (around 05/24/2023) for Follow up on chronic conditions and medications.. Toi Palm APRN-LETY documented in this encounter [facility] 04-12-2023 Note HNO ID: [id number] Author: TOI PALM APRN.CNP Service: ? Author Type: Nurse Practitioner Type: Progress Notes Filed: 04/12/2023 10:24 Note Text: SUBJECTIVE Brigido Yost is a 47 year old female here today for a check up on her medical problems. Chief Complaint Patient presents with: Anxiety Blood Pressure: has been elevated Cough: has improved but continues and productive at times HPI Brigido Yost is a 47 year old female. Here today for a 2 week follow up. Was seen with Ashley Rodriguez APRN. Still having a cough, having urinary incontinence at times with coughing fits. Cough is usually dry. Inhaler helps the cough. Still with dizziness. Has had vertigo for a while but lately worse. Constant, all the time, this was before being sick but sickness made it worse. No issues with headaches (except for if missing coffee) or double vision or blurred vision. Dizzy worse with position changes. Was not taking her Prozac. Her medications were reviewed today and her list is now up to date. Medications Current Outpatient Medications Medication Sig FLUoxetine (PROZAC) 20 mg capsule Take 1 capsule by mouth once daily. omeprazole (PRILOSEC) 20 mg capsule Take 1 capsule by mouth daily before breakfast. 1/2 hr before meal. albuterol HFA (PROVENTIL HFA, VENTOLIN HFA) 90 mcg/actuation inhaler Inhale 2 Puffs as instructed every 6 hours as needed for wheezing/shortness of breath. meclizine (ANTIVERT) 25 mg tab Take 1 tablet by mouth every 6 hours as needed (dizziness). cyclobenzaprine (FLEXERIL) 10 mg tablet Take 1 tablet by mouth three times daily as needed for muscle spasm. loperamide (IMODIUM A-D) 2 mg cap(s) Take 1 capsule by mouth four times daily as needed for diarrhea (or cramping/loose stools). levonorgestrel (MIRENA) 20 mcg/24 hours (7 yrs) 52 mg IUD 1 Each by INTRAUTERINE route as directed. iv contrast (will be provided with radiology test) MRI Brain Inject, intravenously, once for 1 dose.No IV access, insert saline lock prior to beginning of sedation, infusion, injection of imaging exam.Discontinue saline lock post exam. If Pt. has a central line or IVAD, may access for administration according to line specific nursing protocol.Once exam is complete flush line and de-access according to line specific nursing protocol in the MR contrast administration guidelines link amLODIPine (NORVASC) 5 mg tablet Take 1 tablet by mouth once daily. fluticasone (FLOVENT) 110 mcg/actuation inhaler Inhale 2 Puffs as instructed two times a day. Shake well before use. Rinse mouth after use. No current facility-administered medications for this visit. ALLERGIES Allergen Reactions Penicillins Rash, Hives ACTIVE PROBLEM LIST Obesity, Class II, Bmi 35-39.9 - 05/19/2021 Request for Sterilization - 05/26/2019 Comment: 05/26/19 - Title 19 papers signed today - Anjana Ignacio MD Pure Hypercholesterolemia - 01/12/2015 Hypertension - 03/16/2014 Comment: Patient was diagnosed with hypertension 2009, when her when she was heavier, 60 pounds atleast, She has been off them medication for the past 1 month at least and her bp which she checked intermittently was very good, Even today it is good. Kidney Cysts - 03/16/2014 Comment: Patient was evaluated in 2013 for back pain and found to have multiple cysts of the kidney b/l She has no family members on dialysis, kidney cysts, and other issues. Social History Tobacco Use Smoking status: Never Smokeless tobacco: Never Vaping Use Vaping Use: Never used Substance Use Topics Alcohol use: No Drug use: No Review of Systems Respiratory: Positive for cough. Negative for chest tightness, shortness of breath and wheezing. Cardiovascular: Negative. Neurological: Positive for dizziness and light-headedness. Negative for tremors, syncope, speech difficulty and weakness. OBJECTIVE BP 136/100 Pulse 89 Wt 207 lb (93.9kg) SpO2 97% LMP 02/28/2023 Physical Exam Vitals and nursing note reviewed. Constitutional: General: She is awake. She is not in acute distress. Appearance: Normal appearance. She is well-developed and well-groomed. She is not ill-appearing, toxic-appearing or diaphoretic. HENT: Head: Normocephalic. Right Ear: External ear normal. Left Ear: External ear normal. Nose: Nose normal. Eyes: General: Vision grossly intact. Conjunctiva/sclera: Conjunctivae normal. Pupils: Pupils are equal, round, and reactive to light. Neck: Vascular: No JVD. Trachea: Trachea normal. Cardiovascular: Rate and Rhythm: Normal rate and regular rhythm. Pulses: Normal pulses. Heart sounds: Normal heart sounds. No murmur heard. Pulmonary: Effort: Pulmonary effort is normal. No accessory muscle usage, prolonged expiration or respiratory distress. Breath sounds: Normal breath sounds. Musculoskeletal: Cervical back: Neck supple. Skin: General: Skin is warm and dry. Capillary Refill: (more content not included)... [facility] 03-28-2023 Note HNO ID: [id number] Author: GLADIS CLARK RT(R) Service: Radiology Author Type: Technologist Type: Progress Notes Filed: 03/28/2023 09:13 Note Text: Radiology Service Progress Note PATIENT NAME: Brigido Yost DATE OF SERVICE: March 28, 2023 TIME: 9:07 AM PATIENT IDENTITY VERIFICATION COMPLETED USING TWO (2) IDENTIFIERS: Name and Date of confirmed by patient verbally. FALL SCREENING: Has the patient had 2 falls in the last year or 1 fall with injury or currently using an Ambulatory Assistive Device (Walker, Cane, Wheelchair, Crutches, etc.)? No PATIENT GENDER DATA: Female. status: : No status: NO. PATIENT RELEVANT IMPLANT DATA REVIEWED: Yes RADIOLOGY DEPARTMENT: General X-ray: Exam(s) Completed: Chest X-Ray PERIPHERAL IV DATA: Not applicable SIGNED BY: RT Liz(R) March 28, 2023 9:07 AM [facility] 03-28-2023 Note HNO ID: [id number] Author: ASHLEY RODRIGUEZ APRN.[facility] Service: ? Author Type: Nurse Practitioner Type: Progress Notes Filed: 03/28/2023 16:00 Note Text: CC: Patient presents with: Recheck: Follow up, acid reflux and cough HPI Brigido Yost is a 47 year old female who presents today for follow up on acid reflux and anxiety/irritability. Was placed on fluoxetine for anxiety by other provider 6 weeks ago. Is unsure if it is helping as she has been ill and not getting better which is affecting her day to day life. Denies any suicidal or homicidal ideation. GERD: was started on omeprazole 6 weeks ago for heartburn, abdominal pain, and vomiting. All these have resolved with the PPI. Has been ill for the past week. Was seen in in [facility] days ago and started on prednisone, tessalon, albuterol inhaler, and doxycycline. Did not take albuterol inhaler yesterday but took this morning when having difficulty breathing and it worked well. Has seen no improvement. Reports shortness of breath, persistent nonproductive cough keeping her up at night, wheezing, sore throat with coughing, chills, fatigue, dizziness, and generalized weakness. Denies sinus congestion, ear pain, fever, N/V/D, chest pressure, edema, palpitations, syncope, numbness, or confusion. REVIEW OF SYSTEMS See HPI PAST MEDICAL HISTORY Diagnosis Date Encounter for insertion of mirena IUD HTN (hypertension) Hyperlipidemia Kidney cysts PAST SURGICAL HISTORY Procedure Laterality Date CHOLECYSTECTOMY 11/12/2016 Cholecystectomy, hernia INSERT INTRAUTERINE DEVICE 02/2010 [facility] ALLERGIES Penicillins MEDICATIONS predniSONE (DELTASONE) 20 mg tablet Take 2 tablets by mouth once daily for 5 days. benzonatate (TESSALON PERLES) 100 mg capsule Take 1 capsule by mouth three times a day as needed for up to 7 days. albuterol HFA (PROVENTIL HFA, VENTOLIN HFA) 90 mcg/actuation inhaler Inhale 2 Puffs as instructed every 6 hours as needed for wheezing/shortness of breath. doxycycline (VIBRA-TABS) 100 mg tablet Take 1 tablet by mouth two times a day for 7 days. FLUoxetine (PROZAC) 20 mg capsule Take 1 capsule by mouth once daily. omeprazole (PRILOSEC) 20 mg capsule Take 1 capsule by mouth daily before breakfast. 1/2 hr before meal. meclizine (ANTIVERT) 25 mg tab Take 1 tablet by mouth every 6 hours as needed (dizziness). cyclobenzaprine (FLEXERIL) 10 mg tablet Take 1 tablet by mouth three times daily as needed for muscle spasm. B.animalis,bifid,infantis,long (PROBIOTIC 4X) 10-15 mg TbEC Take 1 tablet by mouth as directed. (Patient not taking: Reported on 03/25/2023) loperamide (IMODIUM A-D) 2 mg cap(s) Take 1 capsule by mouth four times daily as needed for diarrhea (or cramping/loose stools). levonorgestrel (MIRENA) 20 mcg/24 hours (7 yrs) 52 mg IUD 1 Each by INTRAUTERINE route as directed. FAMILY HISTORY Problem Relation Age of Onset Asthma Mother Hypertension Mother Obesity Mother Diabetes Mother other (hypercholesterolemia) Mother Cancer Father from agent orange Diabetes Sister Social History Tobacco Use Smoking status: Never Smokeless tobacco: Never Vaping Use Vaping Use: Never used Substance Use Topics Alcohol use: No Drug use: No PHYSICAL EXAM BP 152/92 Pulse 104 Resp 16 Wt 93.4 kg (206 lb) LMP 02/28/2023 SpO2 98% BMI 38.92 kg/m? General Appearance: alert, ill and tired appearing Pysch: mood and affect broad and appropriate Skin: Skin color, texture, turgor normal for age; Eyes: conjunctiva pink and moist, no icterus, sclera white, non-injected Ears: external ears normal to inspection and palpation, canals clear, Left tympanic membrane normal. , Right tympanic membrane normal Nose/sinus: Nares normal. Septum midline. Mucosa normal. No drainage., No sinus tenderness Neck: Thyroid normal size and symmetric without palpable nodules, Neck supple, No adenopathy Oropharynx: tongue midline and normal, palpation of salivary glands negative Lymph nodes: No cervical lymphadenopathy and No supraclavicular lymphadenopathy Lungs: Lungs clear to auscultation. No wheezing, rhonchi, rales. Heart: RRR without murmur, gallop, or rubs. No ectopy Health maintenance reviewed with patient: Hepatitis B Vaccine(1 of 3 - 3-dose series) Never done Covid-19 Vaccine(1) Never done Colorectal Cancer Screening Never done Mammogram Screening due on 05/26/2022 Influenza Vaccine(1) due on 11/16/2022 BP Controlled (<130/80) due on 02/12/2023 Depression Assessment due on 03/18/2023 Annual PCP Team Chronic Disease Visit due on 02/06/2024 Diabetes Screening due on 09/21/2025 Lipid Screening due on 06/02/2026 Pap Testing due on 05/23/2027 HPV Testing due on 05/23/2027 DTaP,Tdap,Td Vaccine(6 - Td or Tdap) due on 04/29/2029 HIV Screening Completed HPV Vaccine Aged Out Hepatitis C Screening Discontinued DATA REVIEWED: No new labs ASSESSMENT/PLAN: 1. Anxiety (more content not included)... [facility] 03-25-2023 Note HNO ID: [id number] Author: SHAWNEE IGNACIO APRN.[facility] [facility] [facility] Service: ? Author Type: Nurse Practitioner Type: Progress Notes Filed: 03/25/2023 12:35 Note Text: CC: Patient presents with: Cough: headache x 4 days HPI: Brigido Yost is a 47 year old female who presents to the office with complaint of head congestion and cough, nonproductive for 5 days. Symptoms are staying the same. Associated symptoms includes cough. Denies fever, nausea, vomiting , and diarrhea. Treatments tried include nothing so far. with no relief of symptoms. Sick contacts: unknown. History of asthma, frequent episodes of bronchitis, chronic bronchitis, bronchiectasis or COPD: No Smoker: No Seasonal/environmental allergies: No The ROS is otherwise negative. The patient's pmh, medications, allergies, and past visits are reviewed. PHYSICAL EXAM: BP 130/74 Pulse 106 Temp 36.7 ?C (98.1 ?F) Resp 16 Wt 93.4 kg (206 lb) LMP 02/28/2023 SpO2 96% BMI 38.92 kg/m? General appearance: alert, cooperative, pleasant, in no acute distress Head: Normocephalic Eyes: EOM's intact, conjunctiva pink and moist, no icterus, sclera white, non-injected Oropharynx:moist without lesions, No erythema, exudates or tonsillar hypertrophy. Heart: Negative. RRR without obvious murmur, gallop, or rubs. No ectopy. Lungs: clear to auscultation, without rales or wheeze, good air exchange PAST MEDICAL HISTORY Diagnosis Date Encounter for insertion of mirena IUD HTN (hypertension) Hyperlipidemia Kidney cysts PAST SURGICAL HISTORY Procedure Laterality Date CHOLECYSTECTOMY 11/12/2016 Cholecystectomy, hernia INSERT INTRAUTERINE DEVICE 02/[facility] ALLERGIES Penicillins MEDICATIONS FLUoxetine (PROZAC) 20 mg capsule Take 1 capsule by mouth once daily. omeprazole (PRILOSEC) 20 mg capsule Take 1 capsule by mouth daily before breakfast. 1/2 hr before meal. meclizine (ANTIVERT) 25 mg tab Take 1 tablet by mouth every 6 hours as needed (dizziness). cyclobenzaprine (FLEXERIL) 10 mg tablet Take 1 tablet by mouth three times daily as needed for muscle spasm. loperamide (IMODIUM A-D) 2 mg cap(s) Take 1 capsule by mouth four times daily as needed for diarrhea (or cramping/loose stools). levonorgestrel (MIRENA) 20 mcg/24 hours (7 yrs) 52 mg IUD 1 Each by INTRAUTERINE route as directed. predniSONE (DELTASONE) 20 mg tablet Take 2 tablets by mouth once daily for 5 days. benzonatate (TESSALON PERLES) 100 mg capsule Take 1 capsule by mouth three times a day as needed for up to 7 days. albuterol HFA (PROVENTIL HFA, VENTOLIN HFA) 90 mcg/actuation inhaler Inhale 2 Puffs as instructed every 6 hours as needed for wheezing/shortness of breath. Inhalational Spacing Device 1 Device one time only for 1 dose. [START ON 03/28/2023] doxycycline (VIBRA-TABS) 100 mg tablet Take 1 tablet by mouth two times a day for 7 days. B.animalis,bifid,infantis,long (PROBIOTIC 4X) 10-15 mg TbEC Take 1 tablet by mouth as directed. (Patient not taking: Reported on 03/25/2023) FAMILY HISTORY Problem Relation Age of Onset Asthma Mother Hypertension Mother Obesity Mother Diabetes Mother other (hypercholesterolemia) Mother Cancer Father from agent orange Diabetes Sister Social History Tobacco Use Smoking status: Never Smokeless tobacco: Never Vaping Use Vaping Use: Never used Substance Use Topics Alcohol use: No Drug use: No ASSESSMENT/PLAN: 1. URI, acute - ICD9: 465.9, ICD10: J06.9 (primary diagnosis) - COVID AND INFLUENZA A/B AND RSV NAAT, ROUTINE - DOXYCYCLINE HYCLATE 100 MG TABLET - delayed 2. Acute cough - ICD9: 786.2, ICD10: R05.1 - PREDNISONE 20 MG TABLET - BENZONATATE 100 MG CAPSULE - ALBUTEROL SULFATE HFA 90 MCG/ACTUATION AEROSOL INHALER Prescription instructions reviewed with patient as applicable. Potential red flag symptoms discussed with the patient. Reviewed appropriate action plan to take if red flag symptoms occur. Patient agreeable to treatment plan. Shawnee Ignacio APRN.[facility] [facility] [facility] 03-01-2023 Note HNO ID: [id number] Author: Rupal Smith APRN.[facility] Service: ? Author Type: Nurse Practitioner Type: Progress Notes Filed: 03/01/2023 4:18 PM Note Text: This note was created using NoteWriter. Subjective Brigido Yost is a 47 year old female. 47 year old female with PMHG HTN and hyperlipidemia presents for complaints of leg swelling Acute onset one week ago Left lower leg +swelling +redness +pain Denies trauma or injury Edema Review of Systems Objective BP 143/90 Pulse 88 Temp 37.1 ?C (98.7 ?F) Resp 18 Wt 91.6 kg (202 lb) LMP 02/28/2023 SpO2 98% BMI 38.17 kg/m? Physical Exam Assessment and Plan ASSESSMENT/PLAN: 1. Pain and swelling of left lower leg - ICD9: 729.5, 729.81, ICD10: M79.662, M79.89 X 1 week NO red flags Patient is concerned for possible DVT We do not have ability to rule out DVT at time of presentation. Sent to ED Rupal Smith APRN.CNP [facility] 03-01-2023 History of Present illness Narrative This note was created using [employer]. Subjective Brigido Yost is a 47 year old female. 47 year old female with PMHG HTN and hyperlipidemia presents for complaints of leg swelling Acute onset one week ago Left lower leg +swelling +redness +pain Denies trauma or injury Edema Review of Systems Objective BP 143/90 Pulse 88 Temp 37.1 C (98.7 F) Resp 18 Wt 91.6 kg (202 lb) LMP 02/28/2023 SpO2 98% BMI 38.17 kg/m Physical Exam Assessment and Plan ASSESSMENT/PLAN: 1. Pain and swelling of left lower leg - ICD9: 729.5, 729.81, ICD10: M79.662, M79.89 X 1 week NO red flags Patient is concerned for possible DVT We do not have ability to rule out DVT at time of presentation. Sent to ED Rupal Smith APRN.CNP documented in this encounter [facility] 02-05-2023 Note HNO ID: [id number] Author: Vincent Page PA-C Service: ? Author Type: Physician Frame Aligner Type: Progress Notes Filed: 02/05/2023 9:08 AM Note Text: CC: Patient presents with: Follow Up: 4 week follow up- mood and sleep, also patient c/o acid reflux HPI Brigido Yost is a 47 year old female who presents today for f/u regarding mood and sleep disturbance. Has had a lot more stress recently. Recently quit her job about a month ago because they told her that her job was more important than her children. Her 3 year old recently had to go to the ED for vomiting up blood. More irritable with stress from her step daughter as well. Wakes up frequently throughout the night. Normally sleeps 4-6 hours/night. Has tried melatonin which has not helped it whatsoever. Dizziness seems worse than normal. I'm pretty sure it's because of stress. Room-spinning when she moves her head, or turns in bed. Happens about every other day. Initially started back in 08/07. Takes Meclizine as prescribed by another provider, which seems to get rid of it for that day. REVIEW OF SYSTEMS See HPI All other systems negative. PAST MEDICAL HISTORY Diagnosis Date Encounter for insertion of mirena IUD HTN (hypertension) Hyperlipidemia Kidney cysts PAST SURGICAL HISTORY Procedure Laterality Date CHOLECYSTECTOMY 11/12/2016 Cholecystectomy, hernia INSERT INTRAUTERINE DEVICE 02/[facility] ALLERGIES Penicillins MEDICATIONS meclizine (ANTIVERT) 25 mg tab Take 1 tablet by mouth every 6 hours as needed (dizziness). cyclobenzaprine (FLEXERIL) 10 mg tablet Take 1 tablet by mouth three times daily as needed for muscle spasm. B.animalis,bifid,infantis,long (PROBIOTIC 4X) 10-15 mg TbEC Take 1 tablet by mouth as directed. loperamide (IMODIUM A-D) 2 mg cap(s) Take 1 capsule by mouth four times daily as needed for diarrhea (or cramping/loose stools). levonorgestrel (MIRENA) 20 mcg/24 hours (7 yrs) 52 mg IUD 1 Each by INTRAUTERINE route as directed. FAMILY HISTORY Problem Relation Age of Onset Asthma Mother Hypertension Mother Obesity Mother Diabetes Mother other (hypercholesterolemia) Mother Cancer Father from agent orange Diabetes Sister Social History Tobacco Use Smoking status: Never Smokeless tobacco: Never Vaping Use Vaping Use: Never used Substance Use Topics Alcohol use: No Drug use: No PHYSICAL EXAM BP 136/70 (BP Site: Left Arm, BP Position: Sitting, BP Cuff Size: Large Adult) Pulse 85 Temp 36.4 ?C (97.6 ?F) Resp 12 Ht 154.9 cm (5' 1 ) Wt 92.1 kg (203 lb) LMP 06/12/2021 SpO2 98% BMI 38.36 kg/m? General Appearance: well appearing, in no acute distress, alert Psych: mood and affect broad and appropriate Skin: Skin color, texture, turgor normal for age Lungs: Lungs clear to auscultation. No wheezing, rhonchi, rales. Heart: RRR without murmur, gallop, or rubs. Abdomen: Abdomen soft, no tenderness to palpation. Bowel sounds normal. No masses, organomegaly No rigidity, guarding, or other evidence of acute abdomen demonstrated on exam ASSESSMENT/PLAN: 1. Anxiety - ICD9: 300.00, ICD10: F41.9 (primary diagnosis) Discussed various treatment options including pharmacologic management, counseling, as well as referral to behavioral health. Patient is opting to trial on antidepressant medication at this time. Discussed medication indications, proper use, and potential adverse effects. All questions and concerns addressed to patient satisfaction. Will reassess efficacy, and make any further dosage adjustments in 4-6 weeks. - FLUOXETINE 20 MG CAPSULE 2. Dizziness - ICD9: 780.4, ICD10: R42 Suspect to be a psychosomatic component, as pt reports it has been much worse with increased stress lately. We will discuss more in depth at upcoming visit, in the case we would want to pursue CT of the head due to new onset 3. Gastroesophageal reflux disease without esophagitis - ICD9: 530.81, ICD10: K21.9 - Suspect GERD/gastritis. Will trial on PPI. Begin treatment with Prilosec 20 mg every day Discussed medication indications, proper use, and potential adverse effects. All questions and concerns addressed to patient satisfaction. Reviewed red flags with patient and when to seek care sooner. - OMEPRAZOLE 20 MG CAPSULE,DELAYED RELEASE Follow-up 3 to 4 weeks mood/acid reflux Prescription instructions reviewed with patient as applicable. Potential red flag symptoms discussed with the patient. Reviewed appropriate action plan to take if red flag symptoms occur. Patient agreeable to treatment plan. Vincent Page PA-C [facility] 02-05-2023 History of Present illness Narrative CC: Patient presents with: Follow Up: 4 week follow up- mood and sleep, also patient c/o acid reflux HPI Brigido Yost is a 47 year old female who presents today for f/u regarding mood and sleep disturbance. Has had a lot more stress recently. Recently quit her job about a month ago because they told her that her job was more important than her children. Her 3 year old recently had to go to the ED for vomiting up blood. More irritable with stress from her step daughter as well. Wakes up frequently throughout the night. Normally sleeps 4-6 hours/night. Has tried melatonin which has not helped it whatsoever. Dizziness seems worse than normal. I'm pretty sure it's because of stress. Room-spinning when she moves her head, or turns in bed. Happens about every other day. Initially started back in 08/07. Takes Meclizine as prescribed by another provider, which seems to get rid of it for that day. REVIEW OF SYSTEMS See HPI All other systems negative. PAST MEDICAL HISTORY Diagnosis Date Encounter for insertion of mirena IUD HTN (hypertension) Hyperlipidemia Kidney cysts PAST SURGICAL HISTORY Procedure Laterality Date CHOLECYSTECTOMY 11/12/2016 Cholecystectomy, hernia INSERT INTRAUTERINE DEVICE [facility] ALLERGIES Penicillins MEDICATIONS meclizine (ANTIVERT) 25 mg tab Take 1 tablet by mouth every 6 hours as needed (dizziness). cyclobenzaprine (FLEXERIL) 10 mg tablet Take 1 tablet by mouth three times daily as needed for muscle spasm. B.animalis,bifid,infantis,long (PROBIOTIC 4X) 10-15 mg TbEC Take 1 tablet by mouth as directed. loperamide (IMODIUM A-D) 2 mg cap(s) Take 1 capsule by mouth four times daily as needed for diarrhea (or cramping/loose stools). levonorgestrel (MIRENA) 20 mcg/24 hours (7 yrs) 52 mg IUD 1 Each by INTRAUTERINE route as directed. FAMILY HISTORY Problem Relation Age of Onset Asthma Mother Hypertension Mother Obesity Mother Diabetes Mother other (hypercholesterolemia) Mother Cancer Father from agent orange Diabetes Sister Social History Tobacco Use Smoking status: Never Smokeless tobacco: Never Vaping Use Vaping Use: Never used Substance Use Topics Alcohol use: No Drug use: No PHYSICAL EXAM BP 136/70 (BP Site: Left Arm, BP Position: Sitting, BP Cuff Size: Large Adult) Pulse 85 Temp 36.4 C (97.6 F) Resp 12 Ht 154.9 cm (5' 1 ) Wt 92.1 kg (203 lb) LMP 06/12/2021 SpO2 98% BMI 38.36 kg/m General Appearance: well appearing, in no acute distress, alert Psych: mood and affect broad and appropriate Skin: Skin color, texture, turgor normal for age Lungs: Lungs clear to auscultation. No wheezing, rhonchi, rales. Heart: RRR without murmur, gallop, or rubs. Abdomen: Abdomen soft, no tenderness to palpation. Bowel sounds normal. No masses, organomegaly No rigidity, guarding, or other evidence of acute abdomen demonstrated on exam ASSESSMENT/PLAN: 1. Anxiety - ICD9: 300.00, ICD10: F41.9 (primary diagnosis) Discussed various treatment options including pharmacologic management, counseling, as well as referral to behavioral health. Patient is opting to trial on antidepressant medication at this time. Discussed medication indications, proper use, and potential adverse effects. All questions and concerns addressed to patient satisfaction. Will reassess efficacy, and make any further dosage adjustments in 4-6 weeks. - FLUOXETINE 20 MG CAPSULE 2. Dizziness - ICD9: 780.4, ICD10: R42 Suspect to be a psychosomatic component, as pt reports it has been much worse with increased stress lately. We will discuss more in depth at upcoming visit, in the case we would want to pursue CT of the head due to new onset 3. Gastroesophageal reflux disease without esophagitis - ICD9: 530.81, ICD10: K21.9 - Suspect GERD/gastritis. Will trial on PPI. Begin treatment with Prilosec 20 mg every day Discussed medication indications, proper use, and potential adverse effects. All questions and concerns addressed to patient satisfaction. Reviewed red flags with patient and when to seek care sooner. - OMEPRAZOLE 20 MG CAPSULE,DELAYED RELEASE Follow-up 3 to 4 weeks mood/acid reflux Prescription instructions reviewed with patient as applicable. Potential red flag symptoms discussed with the patient. Reviewed appropriate action plan to take if red flag symptoms occur. Patient agreeable to treatment plan. Vincent Page PA-C documented in this encounter [facility] 01-16-2023 Note HNO ID: [id number] Author: Efraín Cerrato APRN.[facility] Service: ? Author Type: Nurse Practitioner Type: Progress Notes Filed: 01/16/2023 10:45 AM Note Text: Subjective HPI Nontoxic-appearing female presents urgent care chief complaint flulike symptoms. Duration of symptoms 2 days. Associated symptoms headache fatigue body aches chills cough sore throat. States she does have episodes of dizziness. History of vertigo this feels similar. No dizziness currently. Has not used any OTC medications. Sick contacts at work similar signs symptoms. Denies chance of . Is not breast-feeding. Denies any fever body aches chills productive cough chest pain shortness of breath pleuritic pain hemoptysis nausea vomiting abdominal pain change in bowel or bladder habits. Past medical history prescription medication use and allergies reviewed. .Patient presents with: Cough: Congestion, fatigue, MACHUCA, vertigo is back x 2 days PAST MEDICAL HISTORY Diagnosis Date Encounter for insertion of mirena IUD HTN (hypertension) Hyperlipidemia Kidney cysts PAST SURGICAL HISTORY Procedure Laterality Date CHOLECYSTECTOMY 11/12/2016 Cholecystectomy, hernia INSERT INTRAUTERINE DEVICE [facility] ALLERGIES Penicillins MEDICATIONS cyclobenzaprine (FLEXERIL) 10 mg tablet Take 1 tablet by mouth three times daily as needed for muscle spasm. B.animalis,bifid,infantis,long (PROBIOTIC 4X) 10-15 mg TbEC Take 1 tablet by mouth as directed. loperamide (IMODIUM A-D) 2 mg cap(s) Take 1 capsule by mouth four times daily as needed for diarrhea (or cramping/loose stools). meclizine (ANTIVERT) 25 mg tab Take 1 tablet by mouth every 6 hours as needed (dizziness). levonorgestrel (MIRENA) 20 mcg/24 hours (7 yrs) 52 mg IUD 1 Each by INTRAUTERINE route as directed. FAMILY HISTORY Problem Relation Age of Onset Asthma Mother Hypertension Mother Obesity Mother Diabetes Mother other (hypercholesterolemia) Mother Cancer Father from agent orange Diabetes Sister Social History Tobacco Use Smoking status: Never Smokeless tobacco: Never Vaping Use Vaping Use: Never used Substance Use Topics Alcohol use: No Drug use: No BP 130/88 Pulse 90 Temp 36.6 ?C (97.9 ?F) Resp 21 Wt 90.4 kg (199 lb 6.4 oz) LMP 06/12/2021 SpO2 99% BMI 37.68 kg/m? Review of Systems Constitutional: Positive for malaise/fatigue. Negative for chills and fever. HENT: Positive for congestion and sore throat. Negative for ear discharge, ear pain and sinus pain. Eyes: Negative for blurred vision, pain, discharge and redness. Respiratory: Positive for cough. Negative for hemoptysis, sputum production, shortness of breath, wheezing and stridor. Cardiovascular: Negative for chest pain. Gastrointestinal: Negative for abdominal pain, diarrhea, nausea and vomiting. Musculoskeletal: Positive for myalgias. Skin: Negative for itching and rash. Neurological: Negative for dizziness and headaches. Objective Physical Exam Constitutional: General: She is not in acute distress. Appearance: She is not diaphoretic. HENT: Head: Normocephalic. Jaw: No trismus, tenderness, swelling or pain on movement. Right Ear: Tympanic membrane, ear canal and external ear normal. Left Ear: Tympanic membrane, ear canal and external ear normal. Nose: Congestion present. Mouth/Throat: Mouth: Mucous membranes are moist. Pharynx: Oropharynx is clear. Uvula midline. No pharyngeal swelling, oropharyngeal exudate, posterior oropharyngeal erythema or uvula swelling. Eyes: Conjunctiva/sclera: Conjunctivae normal. Pupils: Pupils are equal, round, and reactive to light. Cardiovascular: Rate and Rhythm: Normal rate and regular rhythm. Heart sounds: Normal heart sounds. Pulmonary: Effort: Pulmonary effort is normal. No tachypnea, accessory muscle usage or respiratory distress. Breath sounds: Normal breath sounds. No stridor. No wheezing, rhonchi or rales. Abdominal: General: There is no distension. Palpations: Abdomen is soft. Tenderness: There is no abdominal tenderness. There is no guarding or rebound. Musculoskeletal: Cervical back: Normal range of motion and neck supple. No edema, erythema, rigidity or tenderness. No pain with movement. Normal range of motion. Lymphadenopathy: Cervical: No cervical adenopathy. Skin: General: Skin is warm and dry. Neurological: Mental Status: She is alert and oriented to person, place, and time. ASSESSMENT/PLAN: 1. Viral illness - ICD9: 079.99, ICD10: B34.9 - COVID AND INFLUENZA A/B NAAT, ROUTINE Patient nontoxic-appearing. Diagnosed with viral illness. Is interested in antiviral therapies if test positive for COVID-19. Patient was educated on supportive therapies. Patient will follow up with primary care provider as needed. Patient was instructed to immediately proceed to emergency room for any new, worsening, or symptoms lasting longe (more content not included)... [facility] 01-16-2023 Instructions Efraín Cerrato APRN.GLASS VIAL FILLER - 01/16/2023 10:30 AM EDT How to Manage Common Symptoms Associated with COVID for Adults Fever- Fever is a temperature over 100.4 F and can occur when the body is fighting an infection. To help treat a fever: Drink plenty of fluids and stay well hydrated. Eat small amounts of easy to digest food. Rest. Your body needs rest to recover, but getting up and moving around the house frequently is a good idea. You should try to continue doing your normal daily activities (bathing, toileting, grooming, cooking), though you will probably feel tired, and need to rest often. Avoid any heavy activity or exercise, as this will increase your body temperature. Dress in light clothing and stay covered in a light sheet. Keep the room temperature cool. Take a slightly warm (not cold or cool) bath, or apply damp washcloths to the forehead and wrists. Cough- Cough is a common symptom associated with COVID and can be bothersome. To help treat a cough: Stay well hydrated. Try warm water or tea with lemon and/or honey to help soothe the cough. Use a humidifier to add moisture to the air. Try a product with menthol, like a cough drop or a rub for your chest such as Vicks, which can help reduce cough. Try cough drops. Avoid smoking and other strong odors or perfumes. Try breathing exercises to keep your lungs open and clear. Take a big deep breath through your nose and hold for 5 seconds before slowly releasing. Repeat frequently, while you are awake. Congestion- Runny nose or nasal congestion can occur with COVID. Treatment can help relieve symptoms: Try OTC nasal saline spray, or nasal saline rinse to relieve mucus congestion. Nasal strips can help keep nasal passages open, to increase airflow. Elevating your head with an extra pillow in bed can help reduce congestion. Using a humidifier can increase moisture in the air, and make breathing easier. Sore Throat- Another common symptom with COVID, can be managed at home by: Stay well hydrated. Gargle with salt water - mix teaspoon salt with 1 cup of warm water and gargle. This helps to loosen mucus in the back of the throat and may reduce discomfort. Try ice chips, popsicles or lozenges to soothe the throat. Nausea/Vomiting/Diarrhea- These are common symptoms, and staying hydrated is most important. If you are nauseous or vomiting, start with small sips of water every 10-15 minutes and increase as tolerated. You can try sucking an ice cube too. If tolerating, you can try pedialyte or Gatorade, or flat sprite or lauro-mera. Start slowly and increase as you are able to. Instead of meals, try smaller, more frequent snacks. Try eating bland foods like crackers, toast, rice, and applesauce. Avoid spicy, greasy or fried foods and dairy containing foods. Even if you aren't feeling hungry due to lack of smell or taste, it is important to try to take in some food when you are able. After drinking and eating, rest in an upright position for up to two hours as needed to help decrease nauseous feelings. Try closing your eyes, avoid moving and watching TV. Avoid strong odors that can make you feel more nauseated. When to seek emergency medical attention Look for emergency warning signs for COVID-19. If having any of these symptoms, seek emergency medical care immediately: Trouble breathing Persistent pain or pressure in the chest New confusion Inability to wake or stay awake Bluish lips or face *This list is not all possible symptoms. Please call your medical provider for any other symptoms that are severe or concerning to you. documented in this encounter [facility] 01-16-2023 History of Present illness Narrative Subjective HPI Nontoxic-appearing female presents urgent care chief complaint flulike symptoms. Duration of symptoms 2 days. Associated symptoms headache fatigue body aches chills cough sore throat. States she does have episodes of dizziness. History of vertigo this feels similar. No dizziness currently. Has not used any OTC medications. Sick contacts at work similar signs symptoms. Denies chance of . Is not breast-feeding. Denies any fever body aches chills productive cough chest pain shortness of breath pleuritic pain hemoptysis nausea vomiting abdominal pain change in bowel or bladder habits. Past medical history prescription medication use and allergies reviewed. .Patient presents with: Cough: Congestion, fatigue, MACHUCA, vertigo is back x 2 days PAST MEDICAL HISTORY Diagnosis Date Encounter for insertion of mirena IUD HTN (hypertension) Hyperlipidemia Kidney cysts PAST SURGICAL HISTORY Procedure Laterality Date CHOLECYSTECTOMY 11/12/2016 Cholecystectomy, hernia INSERT INTRAUTERINE DEVICE 02/[facility] ALLERGIES Penicillins MEDICATIONS cyclobenzaprine (FLEXERIL) 10 mg tablet Take 1 tablet by mouth three times daily as needed for muscle spasm. B.animalis,bifid,infantis,long (PROBIOTIC 4X) 10-15 mg TbEC Take 1 tablet by mouth as directed. loperamide (IMODIUM A-D) 2 mg cap(s) Take 1 capsule by mouth four times daily as needed for diarrhea (or cramping/loose stools). meclizine (ANTIVERT) 25 mg tab Take 1 tablet by mouth every 6 hours as needed (dizziness). levonorgestrel (MIRENA) 20 mcg/24 hours (7 yrs) 52 mg IUD 1 Each by INTRAUTERINE route as directed. FAMILY HISTORY Problem Relation Age of Onset Asthma Mother Hypertension Mother Obesity Mother Diabetes Mother other (hypercholesterolemia) Mother Cancer Father from [place] Diabetes Sister Social History Tobacco Use Smoking status: Never Smokeless tobacco: Never Vaping Use Vaping Use: Never used Substance Use Topics Alcohol use: No Drug use: No BP 130/88 Pulse 90 Temp 36.6 C (97.9 F) Resp 21 Wt 90.4 kg (199 lb 6.4 oz) LMP 06/12/2021 SpO2 99% BMI 37.68 kg/m Review of Systems Constitutional: Positive for malaise/fatigue. Negative for chills and fever. HENT: Positive for congestion and sore throat. Negative for ear discharge, ear pain and sinus pain. Eyes: Negative for blurred vision, pain, discharge and redness. Respiratory: Positive for cough. Negative for hemoptysis, sputum production, shortness of breath, wheezing and stridor. Cardiovascular: Negative for chest pain. Gastrointestinal: Negative for abdominal pain, diarrhea, nausea and vomiting. Musculoskeletal: Positive for myalgias. Skin: Negative for itching and rash. Neurological: Negative for dizziness and headaches. Objective Physical Exam Constitutional: General: She is not in acute distress. Appearance: She is not diaphoretic. HENT: Head: Normocephalic. Jaw: No trismus, tenderness, swelling or pain on movement. Right Ear: Tympanic membrane, ear canal and external ear normal. Left Ear: Tympanic membrane, ear canal and external ear normal. Nose: Congestion present. Mouth/Throat: Mouth: Mucous membranes are moist. Pharynx: Oropharynx is clear. Uvula midline. No pharyngeal swelling, oropharyngeal exudate, posterior oropharyngeal erythema or uvula swelling. Eyes: Conjunctiva/sclera: Conjunctivae normal. Pupils: Pupils are equal, round, and reactive to light. Cardiovascular: Rate and Rhythm: Normal rate and regular rhythm. Heart sounds: Normal heart sounds. Pulmonary: Effort: Pulmonary effort is normal. No tachypnea, accessory muscle usage or respiratory distress. Breath sounds: Normal breath sounds. No stridor. No wheezing, rhonchi or rales. Abdominal: General: There is no distension. Palpations: Abdomen is soft. Tenderness: There is no abdominal tenderness. There is no guarding or rebound. Musculoskeletal: Cervical back: Normal range of motion and neck supple. No edema, erythema, rigidity or tenderness. No pain with movement. Normal range of motion. Lymphadenopathy: Cervical: No cervical adenopathy. Skin: General: Skin is warm and dry. Neurological: Mental Status: She is alert and oriented to person, place, and time. ASSESSMENT/PLAN: 1. Viral illness - ICD9: 079.99, ICD10: B34.9 - COVID & INFLUENZA A/B NAAT, ROUTINE Patient nontoxic-appearing. Diagnosed with viral illness. Is interested in antiviral therapies if test positive for COVID-19. Patient was educated on supportive therapies. Patient will follow up with primary care provider as needed. Patient was instructed to immediately proceed to emergency room for any new, worsening, or symptoms lasting longer than anticipated. The patient's clinical presentation is otherwise unremarkable at this time. Based on exam and clinical finding, the patient is stable for discharge. Plan of care was discussed with patient. Patient verbalizes understanding and agrees to plan of care. This note was generated using [employer] software. It may contain errors in wording, punctuation, or spelling. Efraín Cerrato APRN.GLASS VIAL FILLER documented in this encounter [facility] 01-15-2023 Note Patient Outreach (IN [facility]) BRIGIDO YOST ([id number]) 1975 F Date Time Provider Department 01/15/23 ASHLEY FOLEY During your visit today, we recorded the following information about you: Allergies As of Date: 01/15/2023 Noted Allergy Reaction PENICILLINS 11/26/2013 2 - Rash 4 - Hives Date Reviewed: 12/21/2022 Reviewed by: Nichelle Cain OCCA - Fully Assessed Visit Diagnosis:Pure hypercholesterolemia [E78.00] Order(s):LIPID PANEL BASIC [SQLIPB] Order #: [id number] FUTURE Prescriptions as of 01/18/2023 - meclizine (ANTIVERT) 25 mg tab Take 1 tablet by mouth every 6 hours as needed (dizziness). - guaiFENesin (MUCINEX) 600 mg 12 hr tablet Take 1 tablet by mouth two times a day as needed for cold/allergy symptoms (cough) for up to 7 days. - cyclobenzaprine (FLEXERIL) 10 mg tablet Take 1 tablet by mouth three times daily as needed for muscle spasm. - B.animalis,bifid,infantis,long (PROBIOTIC 4X) 10-15 mg TbEC Take 1 tablet by mouth as directed. - loperamide (IMODIUM A-D) 2 mg cap(s) Take 1 capsule by mouth four times daily as needed for diarrhea (or cramping/loose stools). - levonorgestrel (MIRENA) 20 mcg/24 hours (7 yrs) 52 mg IUD 1 Each by INTRAUTERINE route as directed. Problem List As Of Date 01/15/2023 Noted Resolved Hypertension [I10] 03/16/2014 Kidney cysts [N28.1] 03/16/2014 Hyperlipidemia LDL goal < 130 [E78.5] 03/16/2014 10/11/2014 Pure hypercholesterolemia [E78.00] 01/12/2015 UTI (urinary tract infection) in , ant*02/10/2019 06/02/2021 Advanced maternal age in multigravida [O09.529] 03/04/2019 06/02/2021 Polyhydramnios in third trimester [O40.3XX0] 05/11/2019 06/02/2021 Request for sterilization [Z30.2] 05/26/2019 Obesity, Class II, BMI 35-39.9 [E66.9] 05/19/2021 Encounter Status:Closed by [employer], PRODUSER on 01/18/23 [facility] 12-21-2022 Note HNO ID: [id number] Author: Vincent Page PA-C Service: ? Author Type: Physician Frame Aligner Type: Progress Notes Filed: 12/21/2022 8:33 AM Note Text: CC: Patient presents with: Follow Up: 4 week follow up, stomach pain and loose stool, no longer symptomatic HPI Brigido Yost is a 47 year old female who presents today for 4 wk f/u on GI symptoms and sleep study results. Upon review of chart. Device was returned and patient did not attempt the test. Pt states her children got sick and then she completely forgot to do it. Pt states she would like to wait a little bit longer until life slows down a bit. RLQ pain and loose stools have since gone away- about 2 weeks ago. Stool testing as had been ordered at prior visit (C Diff and Enteric bacteria panel) all WNL. REVIEW OF SYSTEMS See HPI All other systems negative. PAST MEDICAL HISTORY Diagnosis Date Encounter for insertion of mirena IUD HTN (hypertension) Hyperlipidemia Kidney cysts PAST SURGICAL HISTORY Procedure Laterality Date CHOLECYSTECTOMY 11/12/2016 Cholecystectomy, hernia INSERT INTRAUTERINE DEVICE 02/[facility] ALLERGIES Penicillins MEDICATIONS cyclobenzaprine (FLEXERIL) 10 mg tablet Take 1 tablet by mouth three times daily as needed for muscle spasm. B.animalis,bifid,infantis,long (PROBIOTIC 4X) 10-15 mg TbEC Take 1 tablet by mouth as directed. loperamide (IMODIUM A-D) 2 mg cap(s) Take 1 capsule by mouth four times daily as needed for diarrhea (or cramping/loose stools). meclizine (ANTIVERT) 25 mg tab Take 1 tablet by mouth every 6 hours as needed (dizziness). levonorgestrel (MIRENA) 20 mcg/24 hours (7 yrs) 52 mg IUD 1 Each by INTRAUTERINE route as directed. FAMILY HISTORY Problem Relation Age of Onset Asthma Mother Hypertension Mother Obesity Mother Diabetes Mother other (hypercholesterolemia) Mother Cancer Father from [place] Diabetes Sister Social History Tobacco Use Smoking status: Never Smokeless tobacco: Never Vaping Use Vaping Use: Never used Substance Use Topics Alcohol use: No Drug use: No PHYSICAL EXAM BP 122/84 Pulse 76 Resp 16 Wt 90.5 kg (199 lb 9.6 oz) LMP 06/12/2021 SpO2 96% BMI 37.71 kg/m? General Appearance: well appearing, in no acute distress, alert Pysch: mood and affect broad and appropriate Skin: Skin color, texture, turgor normal for age; Head: normocephalic, atraumatic Lymph nodes: No cervical lymphadenopathy Lungs: Lungs clear to auscultation. No wheezing, rhonchi, rales. Heart: RRR without murmur, gallop, or rubs. No ectopy Abdomen: Normal abdominal exam Extremities: No gross deformities, significant edema, skin discoloration, clubbing or cyanosis. Neurological: Gait normal. No focal neurological deficits. Sensation grossly intact. ASSESSMENT/PLAN: 1. Change in stool - ICD9: 792.1, ICD10: R19.5 (primary diagnosis) 100% improved at this point in time- suspect to be related to increased stress. 2. Excessive daytime sleepiness - ICD9: 780.54, ICD10: G47.19 Did not complete home sleep study; Pt will notify us when she's ready to pursue this 3. Witnessed episode of apnea - ICD9: 786.03, ICD10: R06.81 See above 4-6 week f/u reassess stress/anxiety and sleep issues Prescription instructions reviewed with patient as applicable. Potential red flag symptoms discussed with the patient. Reviewed appropriate action plan to take if red flag symptoms occur. Patient agreeable to treatment plan. Vincent Page PA-C [facility] 12-21-2022 Instructions Vincent Page PA-C - 12/21/2022 8:16 AM EDT REM fresh- At [facility] - slowly secretes over the course of 8 hours Pure Encapsulations melatonin - 3 mg, [facility] Sleep Hygiene Practices 1. Try going to bed only when you are drowsy. 2. If you are unable to fall asleep or stay asleep, leave your bedroom and engage in a quiet activity elsewhere. Do not permit yourself to fall asleep outside the bedroom. Return to bed when and only when you are sleepy. Repeat this process as often as necessary throughout night. 3. Maintain regular wake-up time, even on days off work & weekends 4. Use your bedroom for sleep and sex 5. Avoid napping during the daytime. If daytime sleepiness becomes overwhelming, limit nap time to a single nap of less than 1 hr, no later than 3 pm. 6. Distract your mind. Avoid clock watching. Lying in bed unable to sleep and frustrated needs to be avoided. Try reading or watching a videotape or listening to books on tape. It may be necessary to go into another room to do these. 7. Avoid caffeine within 4-6 hrs of bedtime 8. Avoid use of nicotine close to bedtime 9. do not drink alcoholic beverages within 4-6 hrs of bedtime 10. While a light snack before bedtime can help promote sound sleep, avoid large meals. 11. Obtain regular exercise, but avoid strenuous exercise within 4 hrs of bedtime 12. Minimize light, noise, and extremes in temperature in the bedroom. * This information is provided had been directly obtained from the [employer] wellness booklet on sleep hygiene. ([facility], [address] [place] [address]) documented in this encounter [facility] 12-21-2022 History of Present illness Narrative CC: Patient presents with: Follow Up: 4 week follow up, stomach pain and loose stool, no longer symptomatic HPI Brigidoher Alf Yost is a 47 year old female who presents today for 4 wk f/u on GI symptoms and sleep study results. Upon review of chart. Device was returned and patient did not attempt the test. Pt states her children got sick and then she completely forgot to do it. Pt states she would like to wait a little bit longer until life slows down a bit. RLQ pain and loose stools have since gone away- about 2 weeks ago. Stool testing as had been ordered at prior visit (C Diff and Enteric bacteria panel) all WNL. REVIEW OF SYSTEMS See HPI All other systems negative. PAST MEDICAL HISTORY Diagnosis Date Encounter for insertion of mirena IUD HTN (hypertension) Hyperlipidemia Kidney cysts PAST SURGICAL HISTORY Procedure Laterality Date CHOLECYSTECTOMY 11/12/2016 Cholecystectomy, hernia INSERT INTRAUTERINE DEVICE 02/[facility] ALLERGIES Penicillins MEDICATIONS cyclobenzaprine (FLEXERIL) 10 mg tablet Take 1 tablet by mouth three times daily as needed for muscle spasm. B.animalis,bifid,infantis,long (PROBIOTIC 4X) 10-15 mg TbEC Take 1 tablet by mouth as directed. loperamide (IMODIUM A-D) 2 mg cap(s) Take 1 capsule by mouth four times daily as needed for diarrhea (or cramping/loose stools). meclizine (ANTIVERT) 25 mg tab Take 1 tablet by mouth every 6 hours as needed (dizziness). levonorgestrel (MIRENA) 20 mcg/24 hours (7 yrs) 52 mg IUD 1 Each by INTRAUTERINE route as directed. FAMILY HISTORY Problem Relation Age of Onset Asthma Mother Hypertension Mother Obesity Mother Diabetes Mother other (hypercholesterolemia) Mother Cancer Father from [facility] Diabetes Sister Social History Tobacco Use Smoking status: Never Smokeless tobacco: Never Vaping Use Vaping Use: Never used Substance Use Topics Alcohol use: No Drug use: No PHYSICAL EXAM BP 122/84 Pulse 76 Resp 16 Wt 90.5 kg (199 lb 9.6 oz) LMP 06/12/2021 SpO2 96% BMI 37.71 kg/m General Appearance: well appearing, in no acute distress, alert Pysch: mood and affect broad and appropriate Skin: Skin color, texture, turgor normal for age; Head: normocephalic, atraumatic Lymph nodes: No cervical lymphadenopathy Lungs: Lungs clear to auscultation. No wheezing, rhonchi, rales. Heart: RRR without murmur, gallop, or rubs. No ectopy Abdomen: Normal abdominal exam Extremities: No gross deformities, significant edema, skin discoloration, clubbing or cyanosis. Neurological: Gait normal. No focal neurological deficits. Sensation grossly intact. ASSESSMENT/PLAN: 1. Change in stool - ICD9: 792.1, ICD10: R19.5 (primary diagnosis) 100% improved at this point in time- suspect to be related to increased stress. 2. Excessive daytime sleepiness - ICD9: 780.54, ICD10: G47.19 Did not complete home sleep study; Pt will notify us when she's ready to pursue this 3. Witnessed episode of apnea - ICD9: 786.03, ICD10: R06.81 See above 4-6 week f/u reassess stress/anxiety and sleep issues Prescription instructions reviewed with patient as applicable. Potential red flag symptoms discussed with the patient. Reviewed appropriate action plan to take if red flag symptoms occur. Patient agreeable to treatment plan. Vincent Page PA-C documented in this encounter [facility] 10-21-2022 Note HNO ID: [id number] Author: Kieran Michaud APRN.GLASS VIAL FILLER Service: ? Author Type: Nurse Practitioner Type: Progress Notes Filed: 10/21/2022 11:54 AM Note Text: Subjective HPI HPI Brigido Yost is a 47 year old female who presents today for CC of lefft shoulder/upper back pain. This started 8 days ago. Has tried otc medication for relief. Symptoms are worsened by rom of shoulder/neck. Denies history of surgery or injury to left shoulder. Denies numbness and tingling of left arm. .Patient presents with: Pain: Shooting pain left shoulder across back x 8 days PAST MEDICAL HISTORY Diagnosis Date Encounter for insertion of mirena IUD HTN (hypertension) Hyperlipidemia Kidney cysts PAST SURGICAL HISTORY Procedure Laterality Date CHOLECYSTECTOMY 11/12/2016 Cholecystectomy, hernia INSERT INTRAUTERINE DEVICE [facility] ALLERGIES Penicillins MEDICATIONS B.animalis,bifid,infantis,long (PROBIOTIC 4X) 10-15 mg TbEC Take 1 tablet by mouth as directed. loperamide (IMODIUM A-D) 2 mg cap(s) Take 1 capsule by mouth four times daily as needed for diarrhea (or cramping/loose stools). meclizine (ANTIVERT) 25 mg tab Take 1 tablet by mouth every 6 hours as needed (dizziness). levonorgestrel (MIRENA) 20 mcg/24 hours (7 yrs) 52 mg IUD 1 Each by INTRAUTERINE route as directed. predniSONE (DELTASONE) 10 mg tablet Take 4 tabs daily for 3 days, then 2 tabs daily for 3 days, then 1 tab daily for 3 days with food. cyclobenzaprine (FLEXERIL) 10 mg tablet Take 1 tablet by mouth three times daily as needed for muscle spasm. albuterol HFA (PROAIR HFA) 90 mcg/actuation inhaler Inhale 2 Puffs as instructed every 6 hours as needed. (Patient not taking: Reported on 10/21/2022) FAMILY HISTORY Problem Relation Age of Onset Asthma Mother Hypertension Mother Obesity Mother Diabetes Mother other (hypercholesterolemia) Mother Cancer Father from [place] Diabetes Sister Social History Tobacco Use Smoking status: Never Smokeless tobacco: Never Vaping Use Vaping Use: Never used Substance Use Topics Alcohol use: No Drug use: No ROS Objective Blood pressure 132/80, pulse 83, temperature 37 ?C (98.6 ?F), resp. rate 16, weight 90.7 kg (200 lb), last menstrual period 06/12/2021, SpO2 98 %. Physical Exam Constitutional: General: She is not in acute distress. Appearance: She is not toxic-appearing or diaphoretic. HENT: Head: Normocephalic and atraumatic. Pulmonary: Effort: Pulmonary effort is normal. No accessory muscle usage or respiratory distress. Musculoskeletal: Arms: Neurological: Mental Status: She is alert and oriented to person, place, and time. Deep Tendon Reflexes: Reflex Scores: Bicep reflexes are 1+ on the right side and 1+ on the left side. ASSESSMENT/PLAN: 1. Muscle strain - ICD9: 848.9, ICD10: T14.8XXA -use medication as prescribed -follow up if symptoms persist, worsen, change - PREDNISONE 10 MG TABLET - CYCLOBENZAPRINE 10 MG TABLET Kieran Michaud APRN.[facility] 10-09-2022 Note Patient Outreach (IN [facility]) BRIGIDO YOST ([id number]) 1975 F Date Time Provider Department 10/09/22 ASHLEY FOLEY During your visit today, we recorded the following information about you: Allergies As of Date: 10/09/2022 Noted Allergy Reaction PENICILLINS 11/26/2013 2 - Rash 4 - Hives Date Reviewed: 09/28/2022 Reviewed by: Deysi Ventura LPN - Fully Assessed Visit Diagnosis:Pure hypercholesterolemia [E78.00] Order(s):LIPID PANEL BASIC [SQLIPB] Order #: [id number] FUTURE Prescriptions as of 10/12/2022 - B.animalis,bifid,infantis,long (PROBIOTIC 4X) 10-15 mg TbEC Take 1 tablet by mouth as directed. - loperamide (IMODIUM A-D) 2 mg cap(s) Take 1 capsule by mouth four times daily as needed for diarrhea (or cramping/loose stools). - meclizine (ANTIVERT) 25 mg tab Take 1 tablet by mouth every 6 hours as needed (dizziness). - albuterol HFA (PROAIR HFA) 90 mcg/actuation inhaler Inhale 2 Puffs as instructed every 6 hours as needed. - levonorgestrel (MIRENA) 20 mcg/24 hours (7 yrs) 52 mg IUD 1 Each by INTRAUTERINE route as directed. Problem List As Of Date 10/09/2022 Noted Resolved Hypertension [I10] 03/16/2014 Kidney cysts [N28.1] 03/16/2014 Hyperlipidemia LDL goal < 130 [E78.5] 03/16/2014 10/11/2014 Pure hypercholesterolemia [E78.00] 01/12/2015 UTI (urinary tract infection) in , ant*02/10/2019 06/02/2021 Advanced maternal age in multigravida [O09.529] 03/04/2019 06/02/2021 Polyhydramnios in third trimester [O40.3XX0] 05/11/2019 06/02/2021 Request for sterilization [Z30.2] 05/26/2019 Obesity, Class II, BMI 35-39.9 [E66.9] 05/19/2021 Encounter Status:Closed by [employer], PRODUSER on 10/12/22 [facility] 09-28-2022 Note HNO ID: [id number] Author: Vincent Page PA-C Service: ? Author Type: Physician Frame Aligner Type: Progress Notes Filed: 09/28/2022 7:53 AM Note Text: CC: Patient presents with: Follow Up: 1 week follow up-stomach cramping and loose stools and now c/o fatigue HPI Brigido Yost is a 47 year old female who presents today for 1 week follow-up for nausea, stomach cramping and loose stools (see HPI prior encounter). Labs and stool testing were ordered at prior visit. CBC, CMP, and TSH all unremarkable. Stool testing was not completed. She has been on the probiotic and imodium which seemed to help the loose stools.She states the pain is improved- which seems to correlate with the diarrhea. When the diarrhea stopped, the pain improved, but does note that she had another episode of the discomfort this morning ~5-6/10 on the pain scale. 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 States that her heard her gasping for air last night. Open mouth breather at night, salivates frequently during her sleep. Associated with nasal congestion. Wakes up feeling unrefreshed. Does admit to snoring at night. Also notes that she is up and down all night with her 3 year old. Denies any dx of sleep apnea previously, but also has never had a sleep study. REVIEW OF SYSTEMS GENERAL: Negative for significant weight loss, fever, Positive for sweating all the time - suspects this to be perimenopausal GI: Negative for blood in stools or black stools, hematochezia, melena, vomiting and Positive for abdominal discomfort RLQ discomfort ~2x/month, change in bowel habit foul smelling yellow pasty loose stools, diarrhea soft, 3-5 times/day when she has RLQ pain, heart burn frequent, nausea everytime she eats : Negative for dysuria, frequency, hematuria, or any other urinary symptom All other systems negative. PAST MEDICAL HISTORY Diagnosis Date Encounter for insertion of mirena IUD HTN (hypertension) Hyperlipidemia Kidney cysts PAST SURGICAL HISTORY Procedure Laterality Date CHOLECYSTECTOMY 11/12/2016 Cholecystectomy, hernia INSERT [facility]ERINE [facility]ICE [facility] Penicillins MEDICATIONS B.animalis,bifid,infantis,long (PROBIOTIC 4X) 10-15 mg TbEC Take 1 tablet by mouth as directed. loperamide (IMODIUM A-D) 2 mg cap(s) Take 1 capsule by mouth four times daily as needed for diarrhea (or cramping/loose stools). meclizine (ANTIVERT) 25 mg tab Take 1 tablet by mouth every 6 hours as needed (dizziness). albuterol HFA (PROAIR HFA) 90 mcg/actuation inhaler Inhale 2 Puffs as instructed every 6 hours as needed. levonorgestrel (MIRENA) 20 mcg/24 hours (7 yrs) 52 mg IUD 1 Each by INTRAUTERINE route as directed. FAMILY HISTORY Problem Relation Age of Onset Asthma Mother Hypertension Mother Obesity Mother Diabetes Mother other (hypercholesterolemia) Mother Cancer Father from [facility] [place] Diabetes Sister Social History Tobacco Use Smoking status: Never Smokeless tobacco: Never Vaping Use Vaping Use: Never used Substance Use Topics Alcohol use: No Drug use: No PHYSICAL EXAM Pulse 83 Temp 36.7 ?C (98 ?F) Resp 12 Ht 154.9 cm (5' 1 ) Wt 89.8 kg (198 lb) LMP 06/12/2021 SpO2 98% BMI 37.41 kg/m? General Appearance: in no acute distress, alert Pysch: mood and affect broad and appropriate Skin: Skin color, texture, turgor normal for age; Head: normocephalic, atraumatic Eyes: conjunctiva pink and moist, no icterus, sclera white, non-injected Oropharynx: moist mucus membranes Lymph nodes: No cervical lymphadenopathy Lungs: Lungs clear to auscultation. No wheezing, rhonchi, rales. Heart: RRR without murmur, gallop, or rubs. Abdomen: Abdomen soft, mild to moderate TTP in umbilicus region with palpation to RLQ. Bowel sounds normal. No masses, organomegaly. No rebound or guarding. Extremities: No deformities, edema, skin discoloration, clubbing or cyanosis. Good capillary refill. Neurological: Gait normal. Sensation grossly intact. ASSESSMENT/PLAN: 1. Abdominal pain, RLQ - ICD9: 789.03, ICD10: R10.31 (primary diagnosis) -Reassurance provided regarding benign labs. Patient brought stool samples today-advised to return to lab Will call with stool testing results, and adjust treatment as necessary Continue on probiotic; Advised to take imodium PRN Referral to Gastroenterology to pursue further if no treatable cause identified - - CONSULT TO GASTROENTEROLOGY 2. Change in stool - ICD9: 792.1, ICD10: R19.5 See above - CONSULT TO GASTROENTEROLOGY 3. Nausea - ICD9: 787.02, ICD10: R11.0 See above - CONSULT TO GASTROENTEROLOGY 4. Witnessed episode of apnea - ICD9: 786.03, ICD10: R06.81 Patient reports symptoms concerning for possible sleep apnea. Will proceed with (more content not included)... [facility] 09-28-2022 Instructions Vincent Page PA-C - 09/28/2022 7:27 AM EDT Will call with stool testing results, and adjust treatment as necessary Stay on probiotic Take imodium as needed for stomach cramping/diarrhea Will place GI (gastroenterology) referral to pursue if no treatable cause Complete home sleep study and will discuss results and plan in office documented in this encounter [facility] 09-28-2022 History of Present illness Narrative CC: Patient presents with: Follow Up: 1 week follow up-stomach cramping and loose stools and now c/o fatigue HPI Brigido Yost is a 47 year old female who presents today for 1 week follow-up for nausea, stomach cramping and loose stools (see HPI prior encounter). Labs and stool testing were ordered at prior visit. CBC, CMP, and TSH all unremarkable. Stool testing was not completed. She has been on the probiotic and imodium which seemed to help the loose stools.She states the pain is improved- which seems to correlate with the diarrhea. When the diarrhea stopped, the pain improved, but does note that she had another episode of the discomfort this morning ~5-6/10 on the pain scale. 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 States that her heard her gasping for air last night. Open mouth breather at night, salivates frequently during her sleep. Associated with nasal congestion. Wakes up feeling unrefreshed. Does admit to snoring at night. Also notes that she is up and down all night with her 3 year old. Denies any dx of sleep apnea previously, but also has never had a sleep study. REVIEW OF SYSTEMS GENERAL: Negative for significant weight loss, fever, Positive for sweating all the time - suspects this to be perimenopausal GI: Negative for blood in stools or black stools, hematochezia, melena, vomiting and Positive for abdominal discomfort RLQ discomfort ~2x/month, change in bowel habit foul smelling yellow pasty loose stools, diarrhea soft, 3-5 times/day when she has RLQ pain, heart burn frequent, nausea everytime she eats : Negative for dysuria, frequency, hematuria, or any other urinary symptom All other systems negative. PAST MEDICAL HISTORY Diagnosis Date Encounter for insertion of mirena IUD HTN (hypertension) Hyperlipidemia Kidney cysts PAST SURGICAL HISTORY Procedure Laterality Date CHOLECYSTECTOMY 11/12/2016 Cholecystectomy, hernia INSERT [facility]TRAUTERINE DEVICE [facility] ALL[facility]GIES Penicillins MEDICATIONS B.animalis,bifid,infantis,long (PROBIOTIC 4X) 10-15 mg TbEC Take 1 tablet by mouth as directed. loperamide (IMODIUM A-D) 2 mg cap(s) Take 1 capsule by mouth four times daily as needed for diarrhea (or cramping/loose stools). meclizine (ANTIVERT) 25 mg tab Take 1 tablet by mouth every 6 hours as needed (dizziness). albuterol HFA (PROAIR HFA) 90 mcg/actuation inhaler Inhale 2 Puffs as instructed every 6 hours as needed. levonorgestrel (MIRENA) 20 mcg/24 hours (7 yrs) 52 mg IUD 1 Each by INTRAUTERINE route as directed. FAMILY HISTORY Problem Relation Age of Onset Asthma Mother Hypertension Mother Obesity Mother Diabetes Mother other (hypercholesterolemia) Mother Cancer Father from [place] Diabetes Sister Social History Tobacco Use Smoking status: Never Smokeless tobacco: Never Vaping Use Vaping Use: Never used Substance Use Topics Alcohol use: No Drug use: No PHYSICAL EXAM Pulse 83 Temp 36.7 C (98 F) Resp 12 Ht 154.9 cm (5' 1 ) Wt 89.8 kg (198 lb) LMP 06/12/2021 SpO2 98% BMI 37.41 kg/m General Appearance: in no acute distress, alert Pysch: mood and affect broad and appropriate Skin: Skin color, texture, turgor normal for age; Head: normocephalic, atraumatic Eyes: conjunctiva pink and moist, no icterus, sclera white, non-injected Oropharynx: moist mucus membranes Lymph nodes: No cervical lymphadenopathy Lungs: Lungs clear to auscultation. No wheezing, rhonchi, rales. Heart: RRR without murmur, gallop, or rubs. Abdomen: Abdomen soft, mild to moderate TTP in umbilicus region with palpation to RLQ. Bowel sounds normal. No masses, organomegaly. No rebound or guarding. Extremities: No deformities, edema, skin discoloration, clubbing or cyanosis. Good capillary refill. Neurological: Gait normal. Sensation grossly intact. ASSESSMENT/PLAN: 1. Abdominal pain, RLQ - ICD9: 789.03, ICD10: R10.31 (primary diagnosis) -Reassurance provided regarding benign labs. Patient brought stool samples today-advised to return to lab Will call with stool testing results, and adjust treatment as necessary Continue on probiotic; Advised to take imodium PRN Referral to Gastroenterology to pursue further if no treatable cause identified - - CONSULT TO GASTROENTEROLOGY 2. Change in stool - ICD9: 792.1, ICD10: R19.5 See above - CONSULT TO GASTROENTEROLOGY 3. Nausea - ICD9: 787.02, ICD10: R11.0 See above - CONSULT TO GASTROENTEROLOGY 4. Witnessed episode of apnea - ICD9: 786.03, ICD10: R06.81 Patient reports symptoms concerning for possible sleep apnea. Will proceed with home sleep study and determine appropriate treatment accordingly. - HOME SLEEP APNEA TEST (HSAT) 5. Excessive daytime sleepiness - ICD9: 780.54, ICD10: G47.19 See above - HOME SLEEP APNEA TEST (HSAT) 6. Snoring - ICD9: 786.09, ICD10: R06.83 See above - HOME SLEEP APNEA TEST (HSAT Prescription instructions reviewed with patient as applicable. Potential red flag symptoms discussed with the patient. Reviewed appropriate action plan to take if red flag symptoms occur. Patient agreeable to treatment plan. Vincent aPge PA-C documented in this encounter [facility] 09-21-2022 Miscellaneous Notes Pharmacist says [facility] is covered and will switch RX and fill for patient. Could we call back and let them know whatever probiotic (If any) are covered on patient's formulary that would be perfect. Vincent Page PA-C Pharmacist from [facility] here in [place] calls stating they received a script for probiotic they do not have this asking if they could fill with [facility]? Please advise. documented in this encounter [facility] 09-21-2022 Note HNO ID: [id number] Author: Vincent Page PA-C Service: ? Author Type: Physician Frame Aligner Type: Progress Notes Filed: 09/21/2022 10:17 AM Note Text: CC: Patient presents with: Same Day Appointment: stomach cramping and loose stools HPI Brigido Yost is a 47 year old female who presents today for difficulty keeping food down x a couple months. Clarified as everytime she eats, she feels nauseous - but does not actually vomit. Initially attributed it to eating poorly or that she caught something, but it has been happening for a long time at this point. Notes there's a foul smell everytime she defecates or has gas. Has been getting RLQ pain about twice/month- has been going on the same amount of time. Has never had this previously. Sharp and crampy, intermittent, which is why she thought it was related to what she's eating. States that it usually feels better after she has a BM. Has been taking Tylenol arthritis, which seems to help somewhat. Recently started on a probiotic drink that they have at her work ([employer]). I have heartburn all the time. States her stools are light, pasty yellow - they are more soft than normal. Going 3-5 times/day when she has that pain - usually only goes 1-2x/day at baseline. Abdominal surgeries: hernia (unknown type), cholecystectomy - over 3 years ago Denies any recent travel out of the country, eating any new foods, or visiting hospital or SNFs. Denies any recent rounds of abx. Denies coffee ground emesis, hematochezia/bright red blood in the stools, or melena. REVIEW OF SYSTEMS GENERAL: +Sweating all the time, but states she attributes that to being perimenopausal- Negative for malaise, significant weight loss and fever GI: SEE HPI : Negative for dysuria, frequency and incontinence All other systems negative. PAST MEDICAL HISTORY Diagnosis Date Encounter for insertion of mirena IUD HTN (hypertension) Hyperlipidemia Kidney cysts PAST SURGICAL HISTORY Procedure Laterality Date CHOLECYSTECTOMY 11/12/2016 Cholecystectomy, hernia INSERT [facility]TRAUTERINE DEVICE [facility] ALLERGIES Penicillins MEDICATIONS meclizine (ANTIVERT) 25 mg tab Take 1 tablet by mouth every 6 hours as needed (dizziness). Levonorgestrel-Ethinyl Estrad (AVIANE) 0.1mg - 20mcg per tablet Take 1 tablet by mouth once daily for 28 days. albuterol HFA (PROAIR HFA) 90 mcg/actuation inhaler Inhale 2 Puffs as instructed every 6 hours as needed. levonorgestrel (MIRENA) 20 mcg/24 hours (7 yrs) 52 mg IUD 1 Each by INTRAUTERINE route as directed. FAMILY HISTORY Problem Relation Age of Onset Asthma Mother Hypertension Mother Obesity Mother Diabetes Mother other (hypercholesterolemia) Mother Cancer Father from [place] Diabetes Sister Social History Tobacco Use Smoking status: Never Smokeless tobacco: Never Vaping Use Vaping Use: Never used Substance Use Topics Alcohol use: No Drug use: No PHYSICAL EXAM BP 126/70 (BP Site: Left Arm, BP Position: Sitting, BP Cuff Size: Large Adult) Pulse 77 Temp 37 ?C (98.6 ?F) Resp 12 Ht 154.9 cm (5' 1 ) Wt 90.3 kg (199 lb) LMP 06/12/2021 SpO2 96% BMI 37.60 kg/m? General Appearance: in no acute distress, alert Pysch: mood and affect broad and appropriate Skin: Skin color, texture, turgor normal for age; Head: normocephalic, atraumatic Eyes: conjunctiva pink and moist, no icterus, sclera white, non-injected Oropharynx: moist mucus membranes Lymph nodes: No cervical lymphadenopathy Lungs: Lungs clear to auscultation. No wheezing, rhonchi, rales. Heart: RRR without murmur, gallop, or rubs. Abdomen: Abdomen soft, mild-moderate TTP in umbilicus with palpation to RLQ. Bowel sounds normal. No masses, organomegaly. No rebound or guarding. Extremities: No deformities, edema, skin discoloration, clubbing or cyanosis. Good capillary refill. Neurological: Gait normal. Sensation grossly intact. ASSESSMENT/PLAN: 1. Abdominal pain, RLQ - ICD9: 789.03, ICD10: R10.31 (primary diagnosis) No concerning signs or evidence of acute abdomen on exam. Unclear etiology, however given duration and associated sx we will check labs as well as stool testing. Trial on Imodium for symptomatic relief of cramping. - Labs of CBC with Diff, CMP, Stool for C diff, Stool studies, and TSH - Advise probiotic, Increase fiber in diet - [place] low residue diet (BRAT diet) - Follow up in 1 weeks or sooner if worsening of symptoms - CBC + DIFF - TSH BLD - COMP METABOLIC PANEL - ENTERIC BACTERIAL PANEL BY PCR - C. DIFFICILE PCR - PROBIOTIC 4X 10 MG-15 MG TABLET,DELAYED RELEASE - LOPERAMIDE 2 MG CAPSULE 2. Nausea - ICD9: 787.02, ICD10: R11.0 Coincides with eating x 2 months-- see above - CBC + DIFF - TSH BLD - COMP METABOLIC PANEL - ENTERIC BACTERIAL PANEL BY PCR - C. DIFFICILE PCR - CRYPTOSPORIDIUM AND GIARDIA ANTIGENS BY EIA - PROBIOTIC 4X 10 MG-15 MG (more content not included)... [facility] 09-21-2022 Instructions Vincent Page PA-C - 09/21/2022 7:46 AM EDT GASTROENTERITIS DESCRIPTION: Irritation and infection of the digestive tract that can often cause sudden and sometimes violent upsets. Gastroenteritis may be confused with spastic colitis. It affects all ages but is most severe in young children (1 to 5 years) and adults over 60. FREQUENT SIGNS AND SYMPTOMS: -Nausea that sometimes causes vomiting. -Diarrhea that ranges from 2 or 3 loose stools to many watery stools. -Abdominal cramps, pain or tenderness. -Appetite loss. -Fever. -Weakness. CAUSES: -A variety of viruses, bacteria or parasites that have contaminated food or water. -Food poisoning. -Use of harsh laxatives. -Change in bacteria that normally live in the intestinal tract. -Chemical toxins in certain plants, seafood, or contaminated food. -Heavy metal poisoning. RISK INCREASES WITH: -Adults over 60. -Newborns and infants. -Improper diet. -Excess alcohol consumption. -Use of drugs, such as aspirin, nonsteroidal anti-inflammatories, antibiotics, laxatives, cortisone or caffeine. -Travel to foreign countries. PREVENTIVE MEASURES: -Wash hands frequently if you or someone around you has gastroenteritis. -Avoid as many causes and risks mentioned above as possible. -Take care with food preparation. TREATMENT: GENERAL MEASURES: -Diagnostic tests may include laboratory studies of blood and stool. -Treatment is usually supportive (rest, fluids). -Mild cases are usually treated at home. -It is not necessary to isolate persons with gastroenteritis. -Hospitalization, if dehydration is severe. MEDICATIONS: -Medicine is usually not necessary. If gastroenteritis is severe or prolonged, you may be prescribed antinausea and antidiarrheal medication. -Certain bacteria and parasites may require specific antibiotic treatment. ACTIVITY: Rest in bed until nausea, vomiting, diarrhea and fever are gone. DIET: -Suck ice chips or drink small amounts of clear fluids frequently. -After diarrhea and vomiting stop, drink small amounts of clear liquids, such as tea, flat lauro mera or lemon-[place] soda, broth and gelatin. -If liquids are tolerated for 12 hours, eat small amounts of soft foods, such as cooked cereal, rice, eggs, custard, baked potato and yogurt. -If soft food is tolerated for 2 - 3 days, gradually return to a normal diet. Avoid alcohol, spicy food (pizza, spaghetti, onions), gravy raw vegetables, raw fruit, salad dressing, cream soup, coffee and milk for several days. NOTIFY OFFICE: -Symptoms of gastroenteritis persist longer than 2 days. -The following occur during treatment: Mucus or blood in the stool. Fever of 101 degrees F (38.3 degrees C) or higher. Abdominal swelling. Severe pain in the abdomen or rectum especially pain that begins in the center and moves to the lower right side. -Vomiting and diarrhea recur after treatment. -Signs of dehydration, such as dry mouth, wrinkled skin, excess thirst or decreased urination, develop. documented in this encounter [facility] 09-21-2022 History of Present illness Narrative CC: Patient presents with: Same Day Appointment: stomach cramping and loose stools HPI Brigidoher Alf Yost is a 47 year old female who presents today for difficulty keeping food down x a couple months. Clarified as everytime she eats, she feels nauseous - but does not actually vomit. Initially attributed it to eating poorly or that she caught something, but it has been happening for a long time at this point. Notes there's a foul smell everytime she defecates or has gas. Has been getting RLQ pain about twice/month- has been going on the same amount of time. Has never had this previously. Sharp and crampy, intermittent, which is why she thought it was related to what she's eating. States that it usually feels better after she has a BM. Has been taking Tylenol arthritis, which seems to help somewhat. Recently started on a probiotic drink that they have at her work ([employer]). I have heartburn all the time. States her stools are light, pasty yellow - they are more soft than normal. Going 3-5 times/day when she has that pain - usually only goes 1-2x/day at baseline. Abdominal surgeries: hernia (unknown type), cholecystectomy - over 3 years ago Denies any recent travel out of the country, eating any new foods, or visiting hospital or SNFs. Denies any recent rounds of abx. Denies coffee ground emesis, hematochezia/bright red blood in the stools, or melena. REVIEW OF SYSTEMS GENERAL: +Sweating all the time, but states she attributes that to being perimenopausal- Negative for malaise, significant weight loss and fever GI: SEE HPI : Negative for dysuria, frequency and incontinence All other systems negative. PAST MEDICAL HISTORY Diagnosis Date Encounter for insertion of mirena IUD HTN (hypertension) Hyperlipidemia Kidney cysts PAST SURGICAL HISTORY Procedure Laterality Date CHOLECYSTECTOMY 11/12/2016 Cholecystectomy, hernia INSERT [facility]TRAUTERINE DEVICE [facility] ALLERGIES Penicillins MEDICATIONS meclizine (ANTIVERT) 25 mg tab Take 1 tablet by mouth every 6 hours as needed (dizziness). Levonorgestrel-Ethinyl Estrad (AVIANE) 0.1mg - 20mcg per tablet Take 1 tablet by mouth once daily for 28 days. albuterol HFA (PROAIR HFA) 90 mcg/actuation inhaler Inhale 2 Puffs as instructed every 6 hours as needed. levonorgestrel (MIRENA) 20 mcg/24 hours (7 yrs) 52 mg IUD 1 Each by INTRAUTERINE route as directed. FAMILY HISTORY Problem Relation Age of Onset Asthma Mother Hypertension Mother Obesity Mother Diabetes Mother other (hypercholesterolemia) Mother Cancer Father from [place] Diabetes Sister Social History Tobacco Use Smoking status: Never Smokeless tobacco: Never Vaping Use Vaping Use: Never used Substance Use Topics Alcohol use: No Drug use: No PHYSICAL EXAM BP 126/70 (BP Site: Left Arm, BP Position: Sitting, BP Cuff Size: Large Adult) Pulse 77 Temp 37 C (98.6 F) Resp 12 Ht 154.9 cm (5' 1 ) Wt 90.3 kg (199 lb) LMP 06/12/2021 SpO2 96% BMI 37.60 kg/m General Appearance: in no acute distress, alert Pysch: mood and affect broad and appropriate Skin: Skin color, texture, turgor normal for age; Head: normocephalic, atraumatic Eyes: conjunctiva pink and moist, no icterus, sclera white, non-injected Oropharynx: moist mucus membranes Lymph nodes: No cervical lymphadenopathy Lungs: Lungs clear to auscultation. No wheezing, rhonchi, rales. Heart: RRR without murmur, gallop, or rubs. Abdomen: Abdomen soft, mild-moderate TTP in umbilicus with palpation to RLQ. Bowel sounds normal. No masses, organomegaly. No rebound or guarding. Extremities: No deformities, edema, skin discoloration, clubbing or cyanosis. Good capillary refill. Neurological: Gait normal. Sensation grossly intact. ASSESSMENT/PLAN: 1. Abdominal pain, RLQ - ICD9: 789.03, ICD10: R10.31 (primary diagnosis) No concerning signs or evidence of acute abdomen on exam. Unclear etiology, however given duration and associated sx we will check labs as well as stool testing. Trial on Imodium for symptomatic relief of cramping. - Labs of CBC with Diff, CMP, Stool for C diff, Stool studies, and TSH - Advise probiotic, Increase fiber in diet - [place] low residue diet (BRAT diet) - Follow up in 1 weeks or sooner if worsening of symptoms - CBC + DIFF - TSH BLD - COMP METABOLIC PANEL - ENTERIC BACTERIAL PANEL BY PCR - C. DIFFICILE PCR - PROBIOTIC 4X 10 MG-15 MG TABLET,DELAYED RELEASE - LOPERAMIDE 2 MG CAPSULE 2. Nausea - ICD9: 787.02, ICD10: R11.0 Coincides with eating x 2 months-- see above - CBC + DIFF - TSH BLD - COMP METABOLIC PANEL - ENTERIC BACTERIAL PANEL BY PCR - C. DIFFICILE PCR - CRYPTOSPORIDIUM AND GIARDIA ANTIGENS BY EIA - PROBIOTIC 4X 10 MG-15 MG TABLET,DELAYED RELEASE 3. Change in stool - ICD9: 792.1, ICD10: R19.5 See above- Rx for loperamide to assist w/ cramping that occurs. Discussed medication indications, proper use, and potential adverse effects. All questions and concerns addressed to patient satisfaction. Will consider imaging +/- referral to GI INB - CBC + DIFF - TSH BLD - COMP METABOLIC PANEL - ENTERIC BACTERIAL PANEL BY PCR - C. DIFFICILE PCR - CRYPTOSPORIDIUM AND GIARDIA ANTIGENS BY EIA - PROBIOTIC 4X 10 MG-15 MG TABLET,DELAYED RELEASE - LOPERAMIDE 2 MG CAPSULE Prescription instructions reviewed with patient as applicable. Potential red flag symptoms discussed with the patient. Reviewed appropriate action plan to take if red flag symptoms occur. Patient agreeable to treatment plan. F/u 1-2 weeks Vincent Page PA-C documented in this encounter [facility] 07-16-2022 Note HNO ID: [id number] Author: Ashley Rodriguez APRN.LETY Service: ? Author Type: Nurse Practitioner Type: Progress Notes Filed: 07/16/2022 9:27 AM Note Text: CC: Patient presents with: Recheck: Follow up vertigo and elevated BP HPI Brigido Yost is a 46 year old female who presents today for dizziness. Has a history of vertigo and has noticed dizziness over the past 2 weeks. Occurs with movement, climbing ladders, and laying on her side in the evenings. Denies any abnormal/severe headaches, syncope, weakness, numbness, fever, or any other concerns outside of below shakiness. Has a history of elevated blood pressure and it makes her feel shaky. Has noticed shakiness again. Does not check her blood pressure at home. Was on antihypertensive medication for short term in 2018 but not been necessary since. Denies any chest pain, shortness of breath, edema, or palpitations. REVIEW OF SYSTEMS General: no fevers,, no night sweats, no recurrent infections, no change in appetite, no change in energy, and no significant changes in weight HEENT: no frequent or significant headaches, no changes in hearing, no visual changes, no sinus or nasal problems Respiratory: no cough, no wheezing, no shortness of breath, no hemoptysis Cardiovascular: no chest pain, no chest pressure, no palpitations, and no swelling Neurologic: No headache, weakness, numbness, tingling, , memory loss, syncope. PAST MEDICAL HISTORY Diagnosis Date Encounter for insertion of mirena IUD HTN (hypertension) Hyperlipidemia Kidney cysts PAST SURGICAL HISTORY Procedure Laterality Date CHOLECYSTECTOMY 11/12/2016 Cholecystectomy, hernia INSERT [facility] ALLERGIES Penicillins MEDICATIONS Levonorgestrel-Ethinyl Estrad (AVIANE) 0.1mg - 20mcg per tablet Take 1 tablet by mouth once daily for 28 days. levonorgestrel (MIRENA) 20 mcg/24 hours (7 yrs) 52 mg IUD 1 Each by INTRAUTERINE route as directed. meclizine (ANTIVERT) 25 mg tab Take 1 tablet by mouth every 6 hours as needed (dizziness). albuterol HFA (PROAIR HFA) 90 mcg/actuation inhaler Inhale 2 Puffs as instructed every 6 hours as needed. FAMILY HISTORY Problem Relation Age of Onset Asthma Mother Hypertension Mother Obesity Mother Diabetes Mother other (hypercholesterolemia) Mother Cancer Father from [facility] [place] Diabetes Sister Social History Tobacco Use Smoking status: Never Smokeless tobacco: Never Vaping Use Vaping Use: Never used Substance Use Topics Alcohol use: No Drug use: No PHYSICAL EXAM BP 122/78 Pulse 98 Temp 36.7 ?C (98 ?F) (Temporal) Resp 16 Wt 90.7 kg (200 lb) LMP 06/12/2021 SpO2 95% BMI 37.48 kg/m? General Appearance: well appearing, in no acute distress, alert Skin: Skin color, texture, turgor normal for age; Eyes: PERRLA, EOM's intact, conjunctiva pink and moist, no icterus, sclera white, non-injected Neck: Thyroid normal size and symmetric without palpable nodules, No bruits, Neck supple, No adenopathy Lymph nodes: No cervical lymphadenopathy and No supraclavicular lymphadenopathy Lungs: Lungs clear to auscultation. No wheezing, rhonchi, rales. Heart: RRR without murmur, gallop, or rubs. No ectopy BUE Extremities: No deformities, edema, skin discoloration, clubbing or cyanosis. Good capillary refill. Neurological: Gait normal. Reflexes normal and symmetric. Sensation intact, speech normal, mental status intact, Romberg negative, muscle tone normal, muscle strength normal Health maintenance reviewed with patient: HEPATITIS B(1 of 3 - 3-dose series) Never done COVID-19 VACCINE(1) Never done DEPRESSION ASSESSMENT Never done MAMMOGRAM due on 05/26/2022 COLORECTAL CANCER SCREENING due on 02/12/2023 INFLUENZA(Season Ended) due on 11/16/2022 BP CONTROLLED (<130/80) due on 02/12/2023 ANNUAL PCP TEAM CHRONIC DISEASE VISIT due on 04/25/2023 DIABETES SCREEN due on 06/02/2024 LIPID SCREEN due on 06/02/2026 PAP TESTING due on 05/23/2027 HPV TESTING due on 05/23/2027 DTAP,TDAP,TD(3 - Td or Tdap) due on 04/29/2029 HIV SCREENING Completed HEPATITIS C SCREENING Discontinued DATA REVIEWED: No new labs ASSESSMENT/PLAN: 1. Dizziness - ICD9: 780.4, ICD10: R42 (primary diagnosis) - assessment negative, no red flag symptoms, probable BPV. Home shelia maneuver instructions given and meclizine. Will check for other causes as well, if labs normal and symptoms continue may need vestibular therapy. - CBC + DIFF - COMP METABOLIC PANEL - TSH BLD - follow up in 4 weeks 2. Shakiness - ICD9: 781.0, ICD10: R25.1 - BP normal in office, will check for other etiology including Hgba1c as she has a large family history of diabetes. - CBC + DIFF - COMP METABOLIC PANEL - TSH BLD - HGB A1C 3. Vitamin D deficiency - ICD9: 268.9, ICD10: E55.9 - VITAMIN D 25 HYDROXY 4. Family history of diabetes mellitus - ICD9: V18.0, ICD10: Z83.3 - HGB A1C 5. Renetta (more content not included)... [facility] 07-16-2022 History of Present illness Narrative CC: Patient presents with: Recheck: Follow up vertigo and elevated BP HPI Brigido Yost is a 46 year old female who presents today for dizziness. Has a history of vertigo and has noticed dizziness over the past 2 weeks. Occurs with movement, climbing ladders, and laying on her side in the evenings. Denies any abnormal/severe headaches, syncope, weakness, numbness, fever, or any other concerns outside of below shakiness. Has a history of elevated blood pressure and it makes her feel shaky. Has noticed shakiness again. Does not check her blood pressure at home. Was on antihypertensive medication for short term in 2018 but not been necessary since. Denies any chest pain, shortness of breath, edema, or palpitations. REVIEW OF SYSTEMS General: no fevers,, no night sweats, no recurrent infections, no change in appetite, no change in energy, and no significant changes in weight HEENT: no frequent or significant headaches, no changes in hearing, no visual changes, no sinus or nasal problems Respiratory: no cough, no wheezing, no shortness of breath, no hemoptysis Cardiovascular: no chest pain, no chest pressure, no palpitations, and no swelling Neurologic: No headache, weakness, numbness, tingling, , memory loss, syncope. PAST MEDICAL HISTORY Diagnosis Date Encounter for insertion of mirena IUD HTN (hypertension) Hyperlipidemia Kidney cysts PAST SURGICAL HISTORY Procedure Laterality Date CHOLECYSTECTOMY 11/12/2016 Cholecystectomy, hernia INSERT [facility]UTERINE DEVICE [facility] ALLERGIES Penicillins MEDICATIONS Levonorgestrel-Ethinyl Estrad (AVIANE) 0.1mg - 20mcg per tablet Take 1 tablet by mouth once daily for 28 days. levonorgestrel (MIRENA) 20 mcg/24 hours (7 yrs) 52 mg IUD 1 Each by INTRAUTERINE route as directed. meclizine (ANTIVERT) 25 mg tab Take 1 tablet by mouth every 6 hours as needed (dizziness). albuterol HFA (PROAIR HFA) 90 mcg/actuation inhaler Inhale 2 Puffs as instructed every 6 hours as needed. FAMILY HISTORY Problem Relation Age of Onset Asthma Mother Hypertension Mother Obesity Mother Diabetes Mother other (hypercholesterolemia) Mother Cancer Father from [place] Diabetes Sister Social History Tobacco Use Smoking status: Never Smokeless tobacco: Never Vaping Use Vaping Use: Never used Substance Use Topics Alcohol use: No Drug use: No PHYSICAL EXAM BP 122/78 Pulse 98 Temp 36.7 C (98 F) (Temporal) Resp 16 Wt 90.7 kg (200 lb) LMP 06/12/2021 SpO2 95% BMI 37.48 kg/m General Appearance: well appearing, in no acute distress, alert Skin: Skin color, texture, turgor normal for age; Eyes: PERRLA, EOM's intact, conjunctiva pink and moist, no icterus, sclera white, non-injected Neck: Thyroid normal size and symmetric without palpable nodules, No bruits, Neck supple, No adenopathy Lymph nodes: No cervical lymphadenopathy and No supraclavicular lymphadenopathy Lungs: Lungs clear to auscultation. No wheezing, rhonchi, rales. Heart: RRR without murmur, gallop, or rubs. No ectopy BUE Extremities: No deformities, edema, skin discoloration, clubbing or cyanosis. Good capillary refill. Neurological: Gait normal. Reflexes normal and symmetric. Sensation intact, speech normal, mental status intact, Romberg negative, muscle tone normal, muscle strength normal Health maintenance reviewed with patient: HEPATITIS B(1 of 3 - 3-dose series) Never done COVID-19 VACCINE(1) Never done DEPRESSION ASSESSMENT Never done MAMMOGRAM due on 05/26/2022 COLORECTAL CANCER SCREENING due on 02/12/2023 INFLUENZA(Season Ended) due on 11/16/2022 BP CONTROLLED (<130/80) due on 02/12/2023 ANNUAL PCP TEAM CHRONIC DISEASE VISIT due on 04/25/2023 DIABETES SCREEN due on 06/02/2024 LIPID SCREEN due on 06/02/2026 PAP TESTING due on 05/23/2027 HPV TESTING due on 05/23/2027 DTAP,TDAP,TD(3 - Td or Tdap) due on 04/29/2029 HIV SCREENING Completed HEPATITIS C SCREENING Discontinued DATA REVIEWED: No new labs ASSESSMENT/PLAN: 1. Dizziness - ICD9: 780.4, ICD10: R42 (primary diagnosis) - assessment negative, no red flag symptoms, probable BPV. Home shelia maneuver instructions given and meclizine. Will check for other causes as well, if labs normal and symptoms continue may need vestibular therapy. - CBC + DIFF - COMP METABOLIC PANEL - TSH BLD - follow up in 4 weeks 2. Shakiness - ICD9: 781.0, ICD10: R25.1 - BP normal in office, will check for other etiology including Hgba1c as she has a large family history of diabetes. - CBC + DIFF - COMP METABOLIC PANEL - TSH BLD - HGB A1C 3. Vitamin D deficiency - ICD9: 268.9, ICD10: E55.9 - VITAMIN D 25 HYDROXY 4. Family history of diabetes mellitus - ICD9: V18.0, ICD10: Z83.3 - HGB A1C 5. Annual physical exam - ICD9: V70.0, ICD10: Z00.00 - lab work ordered, annual exam needs scheduled an lab work can be reviewed at that time. - LIPID PANEL BASIC - CBC + DIFF - COMP METABOLIC PANEL - TSH BLD - HGB A1C Prescription instructions reviewed with patient as applicable. Potential red flag symptoms discussed with the patient. Reviewed appropriate action plan to take if red flag symptoms occur. Patient agreeable to treatment plan. Ashley Rodriguez APRN.CNP documented in this encounter [facility] 06-27-2022 Note Patient Outreach (IN TMMN) BRIGIDO YOST ([id number]) 1975 F Date Time Provider Department 06/27/22 ASHLEY FOLEY During your visit today, we recorded the following information about you: Allergies As of Date: 06/27/2022 Noted Allergy Reaction PENICILLINS 11/26/2013 2 - Rash 4 - Hives Date Reviewed: 05/22/2022 Reviewed by: Claudia Braswell MA - Fully Assessed Visit Diagnosis:Encounter for screening mammogram for breast cancer [Z12.31] Order(s):[facility] SCREEN[facility] [[id number]] Order #: [id number] FUTURE Prescriptions as of 07/02/2022 - Levonorgestrel-Ethinyl Estrad (AVIANE) 0.1mg - 20mcg per tablet Take 1 tablet by mouth once daily for 28 days. - albuterol HFA (PROAIR HFA) 90 mcg/actuation inhaler Inhale 2 Puffs as instructed every 6 hours as needed. - levonorgestrel (MIRENA) 20 mcg/24 hours (7 yrs) 52 mg IUD 1 Each by INTRAUTERINE route as directed. Problem List As Of Date 06/27/2022 Noted Resolved Hypertension [I10] 03/16/2014 Kidney cysts [N28.1] 03/16/2014 Hyperlipidemia LDL goal < 130 [E78.5] 03/16/2014 10/11/2014 Pure hypercholesterolemia [E78.00] 01/12/2015 UTI (urinary tract infection) in , ant*02/10/2019 06/02/2021 Advanced maternal age in multigravida [O09.529] 03/04/2019 06/02/2021 Polyhydramnios in third trimester [O40.3XX0] 05/11/2019 06/02/2021 Request for sterilization [Z30.2] 05/26/2019 Obesity, Class II, BMI 35-39.9 [E66.9] 05/19/2021 Encounter Status:Closed by NOELLE WALDRON on 07/02/22 [facility] 05-23-2022 Miscellaneous Notes Patient called back yesterday and spoke to provider. Romana Giauque RN I left a message for the pt to call me back. I will talk to if available or get a time that would be good to call her back. Billie Ma APRN.CNP documented in this encounter [facility] 05-22-2022 Note Patient Outreach (IN TMMN) KELSEY,BRIGIDO Milner ([id number]) 1975 F Date Time Provider Department 05/22/22 ASHLEY FOLEY During your visit today, we recorded the following information about you: Allergies As of Date: 05/22/2022 Noted Allergy Reaction PENICILLINS 11/26/2013 2 - Rash 4 - Hives Date Reviewed: 05/22/2022 Reviewed by: Claudia Braswell MA - Fully Assessed Visit Diagnosis:Pure hypercholesterolemia [E78.00] Order(s):LIPID PANEL BASIC [SQLIPB] Order #: [id number] FUTURE SCHEDULE LAB TESTING [[id number]] Order #: [id number] FUTURE Prescriptions as of 05/25/2022 - Levonorgestrel-Ethinyl Estrad (AVIANE) 0.1mg - 20mcg per tablet Take 1 tablet by mouth once daily for 28 days. - clindamycin (CLEOCIN) 150 mg capsule Take 3 capsules by mouth three times daily for 5 days. - albuterol HFA (PROAIR HFA) 90 mcg/actuation inhaler Inhale 2 Puffs as instructed every 6 hours as needed. - levonorgestrel (MIRENA) 20 mcg/24 hours (7 yrs) 52 mg IUD 1 Each by INTRAUTERINE route as directed. Problem List As Of Date 05/22/2022 Noted Resolved Hypertension [I10] 03/16/2014 Kidney cysts [N28.1] 03/16/2014 Hyperlipidemia LDL goal < 130 [E78.5] 03/16/2014 10/11/2014 Pure hypercholesterolemia [E78.00] 01/12/2015 UTI (urinary tract infection) in , ant*02/10/2019 06/02/2021 Advanced maternal age in multigravida [O09.529] 03/04/2019 06/02/2021 Polyhydramnios in third trimester [O40.3XX0] 05/11/2019 06/02/2021 Request for sterilization [Z30.2] 05/26/2019 Obesity, Class II, BMI 35-39.9 [E66.9] 05/19/2021 Encounter Status:Closed by TalkPlusUSER on 05/25/22 [facility] 05-22-2022 Note HNO ID: [id number] Author: Billie Ma APRN.GLASS VIAL FILLER Service: ? Author Type: Nurse Practitioner Type: Progress Notes Filed: 05/22/2022 11:56 AM Note Text: Conservation Engineer offered: Patient declines. Brigido Yost presents today for IUD check. She had a Mirena placed on 06/16/2021. She has had no complications since placement. Has had occasional spotting. Bright red when wiping only. No increased cramping. Notices bleeding more days than not. REVIEW OF SYSTEMS: PAIN ASSESSMENT: Negative for pain, history of chronic pain, or current treatment for a chronic pain condition. ADMINISTRATIVE SERVICES COORDINATOR: Negative for abnormal vaginal bleeding, abnormal vaginal discharge or cramping. Still having occasional irregular bleeding. PHYSICAL EXAMINATION: BP 120/80 Wt 197 lb 12.8 oz (89.7kg) LMP 06/12/2021 ABDOMEN:soft, non-tender, no masses, no hepatosplenomegaly, and no lymphadenopathy EXTERNAL GENITALIA: Normal genitalia and Bartholins, Urethra, Sken'e normal CERVIX: smooth, no lesions. IUD strings not visible. UTERUS: normal size and non-tender, IUD non-palpable ADNEXA: negative for tenderness or masses IMPRESSION/PLAN: IUD correctly positioned- per US 1) Yearly US for fibroid supervision. 2) Pap performed today. Aaliyah Alaniz, student SADI Reviewed ultrasound with Dr Reese her recommendation are to monitor fibroid, no need to remove it at this time unless she started to have severe pain. Billie Ma APRN.GLASS VIAL FILLER TEACHING PROVIDER (Physician/PA/ADJUNCT PHYSICAL EDUCATION INSTRUCTOR) NOTE OF PERSONAL INVOLVEMENT IN CARE: I have personally seen and examined the patient and performed the medical decision-making components. I have reviewed the Advanced Practice Registered Nurse (ADJUNCT PHYSICAL EDUCATION INSTRUCTOR) Student's documentation and verified the findings in the note as written. Any additions or changes are noted in bold/italics. Signature: Billie Ma Date: 05/22/2022 Time: 11:46 AM Medical Decision Making: Problems: Low: Acute, uncomplicated illness or injury Data: Unique test(s) ordered: 1 Risk: Low: Low risk from testing/treatment Medical Decision Making Level: 3 - Low [facility] 05-21-2022 Note HNO ID: [id number] Author: Shannan Hernandez PA-C Service: ? Author Type: Physician Frame Aligner Type: Progress Notes Filed: 05/21/2022 9:19 AM Note Text: 05/21/2022 Patient presents with: Dental Problem: right upper tooth broke x couple days ago SUBJECTIVE: This is a 46 year old that is here today for Complaint(s) of right upper tooth broke 2 days ago. Now having pain and notes a bad taste. Thinks there may be some swelling. Denies fever/chills, drainage. She does have an appointment at the end of the month with dentist. PAST MEDICAL HISTORY Diagnosis Date Encounter for insertion of mirena IUD HTN (hypertension) Hyperlipidemia Kidney cysts ALLERGIES Penicillins MEDICATIONS Current Outpatient Medications Medication Sig albuterol HFA (PROAIR HFA) 90 mcg/actuation inhaler Inhale 2 Puffs as instructed every 6 hours as needed. levonorgestrel (MIRENA) 20 mcg/24 hours (7 yrs) 52 mg IUD 1 Each by INTRAUTERINE route as directed. benzonatate (TESSALON PERLES) 100 mg capsule Take 2 capsules by mouth three times daily as needed. (Patient not taking: Reported on 05/21/2022) No current facility-administered medications for this visit. SOCIAL HISTORY Social History Tobacco Use Smoking status: Never Smokeless tobacco: Never Vaping Use Vaping Use: Never used Substance Use Topics Alcohol use: No Drug use: No REVIEW OF SYSTEMS See HPI OBJECTIVE: BP 122/72 Pulse 92 Temp 36.8 ?C (98.3 ?F) Resp 16 Wt 90.3 kg (199 lb) LMP 06/12/2021 SpO2 99% BMI 37.29 kg/m? APPEARANCE Well appearing, alert, in no acute distress, well-hydrated, well nourished. THROAT normal, no erythema MOUTH + multiple dental carries and + broken right front denture. Small amount of bleeding noted around the gum line. + TTP. No obvious fluctuance or drainage. NECK Supple, no adenopathy; ASSESSMENT/PLAN: 1. Dental infection - ICD9: 522.4, ICD10: K04.7 Allergy to PCN Start clindamycin, tylenol/motrin prn F/u with dentist Reviewed red flags and when to seek care sooner-including worsening pain, swelling, fever >100 The patient indicates understanding of these issues and agrees with the plan. - CLINDAMYCIN HCL 150 MG CAPSULE - take with probiotics/yogurt. Reviewed possible SE and complications of medication. The patient indicates understanding of these issues and agrees with the plan. Shannan Hernandez PA-C [facility] 05-14-2022 Miscellaneous Notes Patient returned call and went over results, notes from Ashley Rodriguez DECORATOR LIGHTING FIXTURES with understanding. Call placed to patient with no answer. Message left for patient to call back and ask to speak to a triage nurse to receive provider message. Barbara Mi RN Please let patient know her US showed a large fibroid. This may be the cause of her discomfort. Continue with plans to see OBGYN Thank you Ashley Rodriguez APRN.LETY documented in this encounter [facility] 05-07-2022 History of Present illness Narrative This note was created using NoteWriter. Subjective Brigido Yost is a 46 year old female. HPI Patient presents with cough and congestion over the past 6 days. Cough seems to be worsening. She has felt feverish over this weekend. Temp was 101. Chest does hurt with her cough. She is not a smoker. No vomiting or diarrhea. Multiple people at work have been sick. Review of Systems Constitutional: Positive for fever. HENT: Positive for congestion, rhinorrhea and sore throat. Respiratory: Positive for cough. Negative for shortness of breath. Cardiovascular: Negative. Gastrointestinal: Negative. Genitourinary: Negative. Musculoskeletal: Positive for myalgias. Neurological: Positive for headaches. All other systems reviewed and are negative. PAST MEDICAL HISTORY Diagnosis Date Encounter for insertion of mirena IUD HTN (hypertension) Hyperlipidemia Kidney cysts Current Outpatient Medications Medication Sig Dispense Refill levonorgestrel (MIRENA) 20 mcg/24 hours (7 yrs) 52 mg IUD 1 Each by INTRAUTERINE route as directed. 1 Each 0 predniSONE (DELTASONE) 20 mg tablet Take 2 tablets by mouth once daily for 5 days. 10 tablet 0 benzonatate (TESSALON PERLES) 100 mg capsule Take 2 capsules by mouth three times daily as needed. 30 capsule 0 albuterol HFA (PROAIR HFA) 90 mcg/actuation inhaler Inhale 2 Puffs as instructed every 6 hours as needed. 1 Each 0 No current facility-administered medications for this visit. PAST SURGICAL HISTORY Procedure Laterality Date CHOLECYSTECTOMY 11/12/2016 Cholecystectomy, hernia [facility] FAMILY HISTORY Problem Relation Age of Onset Asthma Mother Hypertension Mother Obesity Mother Diabetes Mother other (hypercholesterolemia) Mother Cancer Father from [facility] Diabetes Sister Social History Tobacco Use Smoking status: Never Smokeless tobacco: Never Vaping Use Vaping Use: Never used Substance Use Topics Alcohol use: No Drug use: No Objective BP 142/98 Pulse 103 Temp 37.1 C (98.7 F) Resp 20 Wt 88.5 kg (195 lb 3.2 oz) LMP 06/12/2021 SpO2 98% BMI 36.58 kg/m Physical Exam Vitals reviewed. Constitutional: Appearance: Normal appearance. HENT: Head: Normocephalic and atraumatic. Right Ear: Tympanic membrane, ear canal and external ear normal. Left Ear: Tympanic membrane, ear canal and external ear normal. Nose: Congestion present. Mouth/Throat: Mouth: Mucous membranes are moist. Cardiovascular: Rate and Rhythm: Normal rate and regular rhythm. Heart sounds: Normal heart sounds. Pulmonary: Effort: Pulmonary effort is normal. Breath sounds: Normal breath sounds. Comments: Harsh cough noted Musculoskeletal: Cervical back: Neck supple. Skin: General: Skin is warm and dry. Neurological: General: No focal deficit present. Mental Status: She is alert and oriented to person, place, and time. Assessment and Plan ASSESSMENT/PLAN: 1. Bronchitis - ICD9: 490, ICD10: J40 Chest x-ray clear. I feel she does have a viral bronchitis. COVID and flu testing pending. We will treat with prednisone, Tessalon and albuterol inhaler. Follow-up with PCP if not improving in the next 3 to 5 days. - COVID WITH FLUA+B, ROUTINE - XR CHEST 2V FRONTAL/LAT Jennifer Orellana PA-C documented in this encounter [facility] 05-02-2022 History of Present illness Narrative Radiology Service Progress Note PATIENT NAME: Brigido Yost DATE OF SERVICE: May 02, 2022 TIME: 9:10 AM PATIENT IDENTITY VERIFICATION COMPLETED USING TWO (2) IDENTIFIERS: Name and Date of confirmed by patient verbally. FALL SCREENING: Has the patient had 2 falls in the last year or 1 fall with injury or currently using an Ambulatory Assistive Device (Walker, Cane, Wheelchair, Crutches, etc.)? No PATIENT GENDER DATA: Female. status: : No status: NO. PATIENT RELEVANT IMPLANT DATA REVIEWED: Not Applicable RADIOLOGY DEPARTMENT: Ultrasound PERIPHERAL IV DATA: Not applicable SIGNED BY: Rupal Keita RDMS T May 02, 2022 9:10 AM documented in this encounter [facility] 04-25-2022 History of Present illness Narrative CC Patient presents with: Recheck: Possible hernia HPI Brigido Yost is a 46 year old female who presents with abdominal pain for the past few weeks. Pain started suddenly and patient unsure on any cause Location: umbilical without radiation Described as: sharp Aggravating factors: sharpness increases and gets achy with pressure or lifting heavy objects. Alleviating factors: none Associated symptoms: none Denies: blood in stools or black stools, change in bowel habit, nausea, vomiting GI history: GERD Surgeries: cholecystectomy and hernia repair, patient unsure of hernia location but states it was fixed with the gallbbladder removal. Endoscopy: none Family history: none Occasionally has blood in her urine when she wipes which she assumes is from her IUD. Has had this since insertion last June did not have follow up post IUD insertion. Denies any difficulty or pain with urinating, vaginal drainage, fever chills, or any other concerns at this time. REVIEW OF SYSTEMS General: denies dizziness, lightheadedness, weight loss, fever, chills, headaches, night sweats, syncope CV: denies rapid heart rate, edema Resp: denies SOB : denies dark/concentrated urine or decreased urine output PAST MEDICAL HISTORY Diagnosis Date Encounter for insertion of mirena IUD HTN (hypertension) Hyperlipidemia Kidney cysts PAST SURGICAL HISTORY Procedure Laterality Date CHOLECYSTECTOMY 11/12/2016 Cholecystectomy, hernia INSERT [facility]UTERINE DEVICE [facility] ALL[facility] Penicillins MEDICATIONS naproxen (NAPROSYN) 500 mg tablet Take 1 tablet by mouth twice daily as needed (for pain/inflammation). Take with food. fluticasone (FLONASE) 50 mcg/actuation nasal spray Use 2 Sprays in each nostril once daily. Rinse mouth after use. levonorgestrel (MIRENA) 20 mcg/24 hours (7 yrs) 52 mg IUD 1 Each by INTRAUTERINE route as directed. FAMILY HISTORY Problem Relation Age of Onset Asthma Mother Hypertension Mother Obesity Mother Diabetes Mother other (hypercholesterolemia) Mother Cancer Father from agent orange Diabetes Sister Social History Tobacco Use Smoking status: Never Smokeless tobacco: Never Vaping Use Vaping Use: Never used Substance Use Topics Alcohol use: No Drug use: No PHYSICAL EXAM BP 124/78 Pulse 84 Resp 16 Wt 89.4 kg (197 lb) LMP 06/12/2021 BMI 36.92 kg/m General Appearance: well appearing, in no acute distress, alert Skin: Skin color, texture, turgor normal for age; Eyes: conjunctiva pink and moist, no icterus, sclera white, non-injected Lungs: Lungs clear to auscultation. No wheezing, rhonchi, rales. Heart: RRR without murmur, gallop, or rubs. No ectopy Abdomen: Abdomen soft, Bowel sounds normal. No masses, organomegaly. Reported tenderness with palpation to umbilical region and lower abdomen with slight grimacing. No guarding, rigidity, or rebound pain noted. DATA REVIEWED: No new labs ASSESSMENT/PLAN: 1. Lower abdominal tenderness - ICD9: 789.69, ICD10: R10.819 (primary diagnosis) No hernia noted on exam or red flag symptoms. With location of tenderness and blood in urine this needs further evaluated with US - US FEMALE PELVIS TRANSABD LTD - US FEMALE PELVIS TRANSVAG - BASIC METABOLIC PNL - CBC + DIFF - keep upcoming appointment 2. Periumbilical abdominal pain - ICD9: 789.05, ICD10: R10.33 As above - UA DIP, URINE (POC) - HCG QUAL UR - URINALYSIS, WITH MICROSCOPIC - URINE CULTURE - HCG QUAL UR B/O - US FEMALE PELVIS TRANSABD LTD - US FEMALE PELVIS TRANSVAG - BASIC METABOLIC PNL - CBC + DIFF 3. Hematuria, unspecified type - ICD9: 599.70, ICD10: R31.9 As above, but instructed to schedule follow up with gynecology as the follow up from post IUD insertion did not happen and she has had some bleeding with urination since insertion. - URINALYSIS, WITH MICROSCOPIC - URINE CULTURE - HCG QUAL UR B/O - US FEMALE PELVIS TRANSABD LTD - US FEMALE PELVIS TRANSVAG - BASIC METABOLIC PNL - CBC + DIFF Prescription instructions reviewed with patient as applicable. Potential red flag symptoms discussed with the patient. Reviewed appropriate action plan to take if red flag symptoms occur. Patient agreeable to treatment plan. Ashley Rodriguez APRN.CNP documented in this encounter [facility] 02-12-2022 History of Present illness Narrative CC: Patient presents with: Recheck: Follow up HPI Brigido Yost is a 46 year old female who presents with low back pain intermittently for years. 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 Heaviest lifting is 40-50lb boxes, but states she uses good form and bends with her legs. Pain is to mid back intermittent throughout the day, no known positioning makes it worse but changing position and walking does improve the pain for a short period. After a long day on her feet, she will get radiating pain to bilateral lower extremities is a mixture of sharp and achy. Cause: The back pain is not related to a known injury. Associated symptoms include leg pain. Denies: weakness, numbness, tingling, leg weakness, loss of bowel or bladder control, foot drop, and gait disturbance Also denies fever, dysuria, weight loss, history of cancer, history of osteoporosis, and history of steroid use Treatments tried: NSAIDs with some relief. Past medical history is significant for no back related injury or surgery REVIEW OF SYSTEMS General: no fevers, no chills, no night sweats, no recurrent infections, no change in appetite, no change in energy, and no significant changes in weight Respiratory: See HPI Cardiovascular: Negative for: no chest pain, no chest pressure, no palpitations, and no swelling GI: No nausea, vomiting, or diarrhea : No history of dysuria, frequency or incontinence Skin: Negative for lesions, rash, and itching PAST MEDICAL HISTORY Diagnosis Date Encounter for insertion of mirena IUD HTN (hypertension) Hyperlipidemia Kidney cysts PAST SURGICAL HISTORY Procedure Laterality Date CHOLECYSTECTOMY 11/12/2016 Cholecystectomy, hernia INSERT INTRAUTERINE DEVICE 02/[facility] ALLERGIES Penicillins MEDICATIONS benzonatate (TESSALON PERLES) 100 mg capsule Take 1 capsule by mouth three times daily as needed for cough. fluticasone (FLONASE) 50 mcg/actuation nasal spray Use 2 Sprays in each nostril once daily. Rinse mouth after use. levonorgestrel (MIRENA) 20 mcg/24 hours (7 yrs) 52 mg IUD 1 Each by INTRAUTERINE route as directed. FAMILY HISTORY Problem Relation Age of Onset Asthma Mother Hypertension Mother Obesity Mother Diabetes Mother other (hypercholesterolemia) Mother Cancer Father from agent orange Diabetes Sister Social History Tobacco Use Smoking status: Never Smokeless tobacco: Never Vaping Use Vaping Use: Never used Substance Use Topics Alcohol use: No Drug use: No PHYSICAL EXAM BP 120/86 Pulse 88 Resp 16 Wt 88 kg (194 lb) LMP 06/12/2021 BMI 36.36 kg/m General Appearance: well appearing, in no acute distress, alert Skin: Skin color, texture, turgor normal for age; Back: normal to inspection. No tenderness with palpation of spine and slight reported tenderness with palpation of bilateral lower paraspinal muscles. ROM: normal and nonpainful. Reflexes:2+. Muscle strength: 5/5 lower, bilaterally. SLR: Supine - Right Negative, Left Positive Seated - Right Negative, Left Negative. Lungs: Lungs clear to auscultation. No wheezing, rhonchi, rales. Heart: RRR without murmur, gallop, or rubs. No ectopy Abdomen: Abdomen soft, non-tender. Bowel sounds normal. No masses, organomegaly Extremities: No deformities, edema, skin discoloration, clubbing or cyanosis. Good capillary refill. Musculoskeletal: No joint swelling, deformity, or tenderness ASSESSMENT/PLAN: 1. Chronic midline low back pain with bilateral sciatica - ICD9: 724.2, 724.3, 338.29, ICD10: M54.41, M54.42, G89.29 Chronic low back pain - Ice for localized tenderness - NAPROXEN 500 MG TABLET - XR LUMBAR GENERAL 3V AP/LAT/L5-S1 - CONSULT TO PHYSICAL THERAPY - go to ER for weakness, numbness, increased pain, difficulty or loss of bowel/bladder Prescription instructions reviewed with patient as applicable. Potential red flag symptoms discussed with the patient. Reviewed appropriate action plan to take if red flag symptoms occur. Patient agreeable to treatment plan. Ashley Rodriguez APRN.CNP documented in this encounter [facility] 01-15-2022 History of Present illness Narrative CC: Patient presents with: Head Congestion: Head and chest congestion x 10-14 days HPI Brigido Yost is a 46 year old female who presents today for cold symptoms for 2 weeks. Symptoms started 10 days ago and are not improving and she feels even more tired. Was seen in urgent care 4 days ago and negative for both flu and covid. Has not been taking anything over the counter for symptoms and was not prescribed anything. Symptoms are sinus congestion, sinus pressure, wheezing, cough that sometimes produces yellow to green sputum, shortness of breath, headaches, and fatigue. Denies fever, nausea, vomiting, diarrhea, dizziness, syncope, or new swelling. REVIEW OF SYSTEMS See HPI PAST MEDICAL HISTORY Diagnosis Date Encounter for insertion of mirena IUD HTN (hypertension) Hyperlipidemia Kidney cysts PAST SURGICAL HISTORY Procedure Laterality Date CHOLECYSTECTOMY 11/12/2016 Cholecystectomy, hernia INSERT INTRAUTERINE DEVICE [facility] ALLERGIES Penicillins MEDICATIONS levonorgestrel (MIRENA) 20 mcg/24 hours (7 yrs) 52 mg IUD 1 Each by INTRAUTERINE route as directed. doxycycline (VIBRA-TABS) 100 mg tablet Take 1 tablet by mouth twice daily for 7 days. benzonatate (TESSALON PERLES) 100 mg capsule Take 1 capsule by mouth three times daily as needed for cough. fluticasone (FLONASE) 50 mcg/actuation nasal spray Use 2 Sprays in each nostril once daily. Rinse mouth after use. FAMILY HISTORY Problem Relation Age of Onset Asthma Mother Hypertension Mother Obesity Mother Diabetes Mother other (hypercholesterolemia) Mother Cancer Father from agent orange Diabetes Sister Social History Tobacco Use Smoking status: Never Smokeless tobacco: Never Vaping Use Vaping Use: Never used Substance Use Topics Alcohol use: No Drug use: No PHYSICAL EXAM BP 124/88 Pulse 95 Temp 37 C (98.6 F) (Temporal) Resp 16 Wt 88.5 kg (195 lb) LMP 06/12/2021 SpO2 98% BMI 36.54 kg/m General Appearance: well appearing, in no acute distress, alert Skin: Skin color, texture, turgor normal for age; Eyes: conjunctiva pink and moist, no icterus, sclera white, non-injected Ears: external ears normal to inspection and palpation, canals clear, Left tympanic membrane normal. , Right tympanic membrane normal Nose/sinus: Nares normal. Septum midline. Mucosa normal. No drainage. Neck: Thyroid normal size and symmetric without palpable nodules, No adenopathy Oropharynx: tongue midline and normal, soft palate, uvula, and tonsils normal, palpation of salivary glands negative Lymph nodes: No cervical lymphadenopathy and No supraclavicular lymphadenopathy Lungs: Lungs clear to auscultation. No wheezing, rhonchi, rales. Heart: RRR without murmur, gallop, or rubs. No ectopy BUE Extremities: No deformities, edema, skin discoloration, clubbing or cyanosis. Good capillary refill. Health maintenance reviewed with patient: HEPATITIS B(1 of 3 - 3-dose series) Never done DEPRESSION ASSESSMENT Never done BP CONTROLLED (<130/80) due on 07/15/2021 COLORECTAL CANCER SCREENING Never done INFLUENZA(1) due on 11/16/2021 COVID-19 VACCINE(1) due on 05/19/2022 ANNUAL PCP TEAM CHRONIC DISEASE VISIT due on 05/19/2022 MAMMOGRAM due on 05/26/2022 PAP TESTING due on 01/14/2023 HPV TESTING due on 01/14/2023 DIABETES SCREEN due on 06/02/2024 LIPID SCREEN due on 06/02/2026 DTAP,TDAP,TD(3 - Td or Tdap) due on 04/29/2029 HIV SCREENING Completed HEPATITIS C SCREENING Discontinued DATA REVIEWED: No new labs ASSESSMENT/PLAN: 1. Acute non-recurrent sinusitis, unspecified location - ICD9: 461.9, ICD10: J01.90 (primary diagnosis) - Will begin treatment with as per antibiotic as written, see orders - Supportive care with plenty of fluids, rest, and analgesia prn. - Follow up in 3-5 days if symptoms persist or worsen. 2. Acute cough - ICD9: 786.2, ICD10: R05.1 Possible result of sinusitis, but will check further since reporting shortness of breath and wheezing - XR CHEST 2V FRONTAL/LAT 3. Wheezing - ICD9: 786.07, ICD10: R06.2 As above - XR CHEST 2V FRONTAL/LAT 4. Shortness of breath - ICD9: 786.05, ICD10: R06.02 See #2 - XR CHEST 2V FRONTAL/LAT Prescription instructions reviewed with patient as applicable. Potential red flag symptoms discussed with the patient. Reviewed appropriate action plan to take if red flag symptoms occur. Patient agreeable to treatment plan. Ashley Rodriguez APRN.CNP documented in this encounter [facility] 01-11-2022 History of Present illness Narrative SUBJECTIVE: Brigido Yost is a 46 year old female. Who presents today with headache, congestion sore throat, cough, body aches, fatigue for the last week. She denies any fever. Her daughter is sick as well. She is not vaccinated for covid. She would like covid and flu testing today. HPI PAST MEDICAL HISTORY Diagnosis Date Encounter for insertion of mirena IUD HTN (hypertension) Hyperlipidemia Kidney cysts FAMILY HISTORY Problem Relation Age of Onset Asthma Mother Hypertension Mother Obesity Mother Diabetes Mother other (hypercholesterolemia) Mother Cancer Father from agent orange Diabetes Sister Social History Tobacco Use Smoking status: Never Smokeless tobacco: Never Vaping Use Vaping Use: Never used Substance Use Topics Alcohol use: No Drug use: No ALLERGIES Allergen Reactions Penicillins Rash, Hives Current Outpatient Medications Medication Sig Dispense Refill levonorgestrel (MIRENA) 20 mcg/24 hours (7 yrs) 52 mg IUD 1 Each by INTRAUTERINE route as directed. 1 Each 0 benzonatate (TESSALON PERLE) 100 mg capsule Take 2 capsules by mouth three times daily as needed. (Patient not taking: Reported on 09/29/2021 ) 30 capsule 0 ergocalciferol 50,000 unit capsule (VITAMIN D2, DRISDOL) Take 1 tablet by mouth twice weekly [id number], then decrease to 1 tablet weekly. (Patient not taking: Reported on 01/11/2022) 16 capsule 3 omeprazole (PRILOSEC) 20 mg capsule Take 1 capsule by mouth daily before breakfast. 1/2 hr before meal. (Patient not taking: Reported on 01/11/2022) 30 capsule 1 cyclobenzaprine (FLEXERIL) 10 mg tablet Take 0.5 tablets by mouth daily at bedtime. (Patient not taking: Reported on 09/29/2021 ) 15 tablet 0 No current facility-administered medications for this visit. OBJECTIVE: BP 128/82 Pulse 93 Temp 36.9 C (98.5 F) (Tympanic) Resp 18 Wt 90.3 kg (199 lb) LMP 06/12/2021 SpO2 98% BMI 37.29 kg/m ROS: All systems reviewed and are otherwise negative Constitutional: Well developed, well nourished, A&O X3. ENT: Head is atraumatic, airway patent, mucosal membranes moist Neck: full ROM, no meningeal signs Cardiac: heart tones regular rate and rhythm Respiratory: lung CTA : no CVA tenderness MS: moves all extremities, no deformities noted Neuro: GCS 15 no focal deficits Skin: warm and dry with out rash, lesion or ecchymosis Psych: alert appropriate, speech clear Diagnostic testing: COVID/ Influenza A and B testing performed and results will be complete in the next 24-72 hours. The patient will be notified of the results in My Chart. MDM: Patient presented to the [facility] today for COVID and Influenza testing. Vital signs were evaluated and found to be within normal limits. Brigido Yost was in no acute distress. We discussed the COVID results will be back in the next 1-2 days. In accordance with the CDC guidelines, Brigido Yost was instructed to quarantine, if indicated, based on symptoms and exposure. We discussed OTC medications to use for her symptoms. They will follow-up with their family doctor in the next 2-3 days. If symptoms worsen they will go straight to the emergency department for further evaluation and treatment. They voiced understanding of the plan of care and are in agreement. ASSESSMENT/PLAN: 1. Exposure to 2019 novel coronavirus - ICD9: V01.79, ICD10: Z20.822 - COVID WITH FLUA+B, ROUTINE Claudia Richardson APRN.GLASS VIAL FILLER documented in this encounter [facility] 09-29-2021 History of Present illness Narrative Patient came in with complaints of numbness and tingling in her left arm radiates up her neck. Patient said its a 7/10 in discomfort and has caused her to vomit a few times. Patient can not lift arm without extreme pain. Patient has no injury to area and never had anything like this happen before. Family will take patient tot he ER at this time for full evaluation. documented in this encounter [facility] 07-28-2021 History of Present illness Narrative Subjective HPI HPI Brigido Yost is a 46 year old female who presents today for CC of cough, congestion, sinus pressure, sob, st. This started 5 days ago/worsening. Has tried otc medication for relief. Symptoms are worsened by nothing. Risk factors sick exposures at home. Denies cp. .Patient presents with: Head Congestion: chest congestion, cough, sore throat x 5 days PAST MEDICAL HISTORY Diagnosis Date Encounter for insertion of mirena IUD HTN (hypertension) Hyperlipidemia Kidney cysts PAST SURGICAL HISTORY Procedure Laterality Date CHOLECYSTECTOMY 11/12/2016 Cholecystectomy, hernia INSERT INTRAUTERINE DEVICE [facility] ALLERGIES Penicillins MEDICATIONS levonorgestrel (MIRENA) 20 mcg/24 hours (7 yrs) 52 mg IUD 1 Each by INTRAUTERINE route as directed. ergocalciferol 50,000 unit capsule (VITAMIN D2, DRISDOL) Take 1 tablet by mouth twice weekly [id number], then decrease to 1 tablet weekly. omeprazole (PRILOSEC) 20 mg capsule Take 1 capsule by mouth daily before breakfast. 1/2 hr before meal. cyclobenzaprine (FLEXERIL) 10 mg tablet Take 0.5 tablets by mouth daily at bedtime. doxycycline monohydrate 100 mg tablet Take 1 tablet by mouth twice daily for 7 days. benzonatate (TESSALON PERLE) 100 mg capsule Take 2 capsules by mouth three times daily as needed. FAMILY HISTORY Problem Relation Age of Onset Asthma Mother Hypertension Mother Obesity Mother Diabetes Mother other (hypercholesterolemia) Mother Cancer Father from agent orange Diabetes Sister Social History Tobacco Use Smoking status: Never Smoker Smokeless tobacco: Never Used Vaping Use Vaping Use: Never used Substance Use Topics Alcohol use: No Drug use: No ROS Objective Blood pressure 122/70, pulse 110, temperature 36.7 C (98 F), resp. rate 16, weight 92.5 kg (204 lb), last menstrual period 06/12/2021, SpO2 97 %. Physical Exam Constitutional: General: She is not in acute distress. Appearance: She is ill-appearing (mild). She is not toxic-appearing or diaphoretic. HENT: Head: Normocephalic and atraumatic. Cardiovascular: Rate and Rhythm: Normal rate and regular rhythm. Heart sounds: Normal heart sounds, S1 normal and S2 normal. Pulmonary: Effort: Accessory muscle usage present. No respiratory distress. Breath sounds: Rhonchi (scattered bilat) present. No decreased breath sounds, wheezing or rales. Lymphadenopathy: Cervical: No cervical adenopathy. Right cervical: No superficial cervical adenopathy. Left cervical: No superficial cervical adenopathy. Neurological: Mental Status: She is alert and oriented to person, place, and time. Gait: Gait is intact. ASSESSMENT/PLAN: 1. Sinobronchitis - ICD9: 473.9, 490, ICD10: J32.9, J40 (primary diagnosis) - Will begin treatment with Doxycycline - Supportive care with plenty of fluids, rest, and analgesia prn. - Follow up in 3-5 days if symptoms persist or worsen. - DOXYCYCLINE MONOHYDRATE 100 MG TABLET - BENZONATATE 100 MG CAPSULE - COVID WITH FLUA+B, ROUTINE 2. Cough - ICD9: 786.2, ICD10: R05.9 xr negative. - XR CHEST 2V FRONTAL/LAT Impression IMPRESSION: No acute radiographic abnormality. Dictated by : VIVIENNE TRUJILLO MD - BENZONATATE 100 MG CAPSULE - COVID WITH FLUA+B, ROUTINE Agrees to plan Kieran Michaud APRN.CNP documented in this encounter [facility] 06-16-2021 Miscellaneous Notes Patient seen in office today. Екатерина Bernal RN Left message for patient to call office. Rosmery Hua RN Yes, I would like her to have it done today so that I will hopeful have the result before she comes in. Billie Ma APRN.CNP Left message for patient to call back to let her know that Billie is out of the office until tomorrow and that she will address this note at that time. RM will address when she returns to the office on . Essence Deleon APRN.CNP Patient is scheduled for IUD insertion this Saturday, but is concerned that she is possible late for this months period. According to patient her periods have been irregular for the past 6 months. She is unsure when she is supposed to have a period this month as she had bleeding 04/24-04/26 and also on 05/12-05/15. Patient states she has taken a test every week, with last testing done on 06/07. All home tests have been negative. Patient is aware test is done in office prior to IUD insertion. Do you want any blood work done as well? Екатерина Bernal RN documented in this encounter [facility] 06-16-2021 Instructions Sonya Peter LPN - 06/16/2021 10:03 AM EDT POST IUD INSTRUCTIONS You may have irregular bleeding during the first 3 months of use. You may have mild-severe cramping for the next 48 hours. You may use over the counter medication (Motrin, Tylenol) as needed. Your IUD must be removed or replaced based on the following table: IUD Type Removed or replaced within: Judy 3 years Kyleena 5 years Mirena 7 years Paragard 10 years Call my office for signs/symptoms of infection such as severe cramping, fever, or unusual bleeding. Check for string placement as instructed by your doctor. If you have any additional questions, please contact the office. documented in this encounter [facility] 06-16-2021 History of Present illness Narrative Brigido presents today for IUD insertion for contraception. Patient's last menstrual period was 05/13/2021. GC/chlamydia: Not done: no risk factors and/or patient declines screening test: negative Side effects including irregular bleeding were discussed with the patient. The patient understands that it should be removed in 7 years or sooner if the patient desires a . IUD source: office provided IUD lot #: [id number] Exp date: 09/15/23 UNIVERSAL PROTOCOL / SAFETY CHECKLIST Procedure to be Performed: Mirena insertion Sign In: A Moment of CARE was completed. Personnel directly involved with the procedure wore the appropriate PPE (Personal Protective Equipment). Patient/Surrogate Stated/Verified: PATIENT VERIFIED(optional for EMERGENT procedures): Patient name, Date of , Relevant allergies and The intended procedure Time Out Communication: Intended patient and procedure match the source documents. Consent documented and matches the intended procedure. Sign Out: SIGN OUT (optional for EMERGENT procedures): No specimen collected. All instruments, equipment, possible retained foreign bodies accounted for. Sonya Peter LPN The uterus sounded to 9 cm and the uterus is Anteverted.. After prepping the cervix with betadine and using sterile technique, the Mirena IUD was inserted without difficulty and the string was cut to 2cm from the external os of the cervix. Patient tolerated procedure well. PLAN: Patient was advised to observe for signs and symptoms of infection including but not limited to fever, malodorous vaginal discharge and/or pain. The patient was told to check the string monthly for accurate placement. Bleeding expectations were reviewed. Follow up in one month. Billie Ma APRN.CNP documented in this encounter [facility] [facility] documented as of this encounter (statuses as of 06/16/2021) [facility]02-[facility]-2020 History of Past illness Narrative* Problem Noted Date Resolved Date Polyhydramnios in third trimester 05/11/2019 06/02/2021 Overview: 06/02/19-Growth US today 81st percentile, MAYRA 26 Polyhydramnios, BPP 8/, continue weekly NST. Growth/MAYRA in 3 weeks if not delivered. Rupal Hutchison APRN.CNM 05/11/19 - needs weekly NSTs, await formal US read - Anjana Ignacio MD Advanced maternal age in multigravida 03/04/2019 06/02/2021 UTI (urinary tract infection) in , ante 02/10/2019 06/02/2021 Overview: 02/04/19-Treated for UTI at [facility]. Started on Macrobid. Urine BERTHA next visit. Rupal Hutchison APRN.CNM Hyperlipidemia LDL goal < 130 03/16/2014 Overview: She was diagnosed with hyperlipidemia a 2009. Last Assessment & Plan: She was diagnosed with hyperlipidemia a 2009. documented as of this encounter (statuses as of 06/16/2021) [facility] History of Past illness Narrative* Problem Noted Date Resolved Date Polyhydramnios in third trimester 05/11/2019 06/02/2021 Overview: 06/02/19-Growth US today 81st percentile, MAYRA 26 Polyhydramnios, BPP 8/8, continue weekly NST. Growth/MAYRA in 3 weeks if not delivered. Rupal Hutchison APRN.CNM 05/11/19 - needs weekly NSTs, await formal US read - Anjana Ignacio MD Advanced maternal age in multigravida 03/04/2019 06/02/2021 UTI (urinary tract infection) in , ante 02/10/2019 06/02/2021 Overview: 02/04/19-Treated for UTI at [facility]. Started on Macrobid. Urine BERTHA next visit. Rupal Hutchison APRN.CNM Hyperlipidemia LDL goal < 130 03/16/2014 Overview: She was diagnosed with hyperlipidemia a 2009. Last Assessment & Plan: She was diagnosed with hyperlipidemia a 2009. documented as of this encounter (statuses as of 07/28/2021) [facility] History of Past illness Narrative* Problem Noted Date Resolved Date Polyhydramnios in third trimester 05/11/2019 06/02/2021 Overview: 06/02/19-Growth US today 81st percentile, MAYRA 26 Polyhydramnios, BPP 8/8, continue weekly NST. Growth/MAYRA in 3 weeks if not delivered. Rupal Hutchison APRN.CNM 05/11/19 - needs weekly NSTs, await formal US read - Anjana Ignacio MD Advanced maternal age in multigravida 03/04/2019 06/02/2021 UTI (urinary tract infection) in , ante 02/10/2019 06/02/2021 Overview: 02/04/19-Treated for UTI at [facility]. Started on Macrobid. Urine BERTHA next visit. Rupal Hutchison APRN.CNM Hyperlipidemia LDL goal < 130 03/16/2014 Overview: She was diagnosed with hyperlipidemia a 2009. Last Assessment & Plan: She was diagnosed with hyperlipidemia a 2009. documented as of this encounter (statuses as of 09/29/2021) [facility] History of Past illness Narrative* Problem Noted Date Resolved Date Polyhydramnios in third trimester 05/11/2019 06/02/2021 Overview: 06/02/19-Growth US today 81st percentile, MAYRA 26 Polyhydramnios, BPP 8/8, continue weekly NST. Growth/MAYRA in 3 weeks if not delivered. Rupal Hutchison APRN.CNM 05/11/19 - needs weekly NSTs, await formal US read - Anjana Ignacio MD Advanced maternal age in multigravida 03/04/2019 06/02/2021 UTI (urinary tract infection) in , ante 02/10/2019 06/02/2021 Overview: 02/04/19-Treated for UTI at [facility]. Started on Macrobid. Urine BERTHA next visit. Rupal Hutchison APRN.CNM Hyperlipidemia LDL goal < 130 03/16/2014 Overview: She was diagnosed with hyperlipidemia a 2009. Last Assessment & Plan: She was diagnosed with hyperlipidemia a 2009. documented as of this encounter (statuses as of 09/30/2021) [facility] History of Past illness Narrative* Problem Noted Date Resolved Date Polyhydramnios in third trimester 05/11/2019 06/02/2021 Overview: 06/02/19-Growth US today 81st percentile, MAYRA 26 Polyhydramnios, BPP 8/8, continue weekly NST. Growth/MAYRA in 3 weeks if not delivered. Rupal Hutchison APRN.CNM 05/11/19 - needs weekly NSTs, await formal US read - Anjana Ignacio MD Advanced maternal age in multigravida 03/04/2019 06/02/2021 UTI (urinary tract infection) in , ante 02/10/2019 06/02/2021 Overview: 02/04/19-Treated for UTI at [facility]. Started on Macrobid. Urine BERTHA next visit. Rupal Hutchison APRN.CNM Hyperlipidemia LDL goal < 130 03/16/2014 Overview: She was diagnosed with hyperlipidemia a 2009. Last Assessment & Plan: She was diagnosed with hyperlipidemia a 2009. documented as of this encounter (statuses as of 01/11/2022) [facility] History of Past illness Narrative* Problem Noted Date Resolved Date Polyhydramnios in third trimester 05/11/2019 06/02/2021 Overview: 06/02/19-Growth US today 81st percentile, MAYRA 26 Polyhydramnios, BPP 8/8, continue weekly NST. Growth/MAYRA in 3 weeks if not delivered. Rupal Hutchison APRN.CNM 05/11/19 - needs weekly NSTs, await formal US read - Anjana Ignacio MD Advanced maternal age in multigravida 03/04/2019 06/02/2021 UTI (urinary tract infection) in , ante 02/10/2019 06/02/2021 Overview: 02/04/19-Treated for UTI at [facility]. Started on Macrobid. Urine BERTHA next visit. Rupal Hutchison APRN.CNM Hyperlipidemia LDL goal < 130 03/16/2014 Overview: She was diagnosed with hyperlipidemia a 2009. Last Assessment & Plan: She was diagnosed with hyperlipidemia a 2009. documented as of this encounter (statuses as of 01/15/2022) [facility] History of Past illness Narrative* Problem Noted Date Resolved Date Polyhydramnios in third trimester 05/11/2019 06/02/2021 Overview: 06/02/19-Growth US today 81st percentile, MAYRA 26 Polyhydramnios, BPP 8/8, continue weekly NST. Growth/MAYRA in 3 weeks if not delivered. Rupal Hutchison APRN.CNM 05/11/19 - needs weekly NSTs, await formal US read - Anjana Ignacio MD Advanced maternal age in multigravida 03/04/2019 06/02/2021 UTI (urinary tract infection) in , ante 02/10/2019 06/02/2021 Overview: 02/04/19-Treated for UTI at [facility]. Started on Macrobid. Urine BERTHA next visit. Rupal Hutchison APRN.CNM Hyperlipidemia LDL goal < 130 03/16/2014 Overview: She was diagnosed with hyperlipidemia a 2009. Last Assessment & Plan: She was diagnosed with hyperlipidemia a 2009. documented as of this encounter (statuses as of 02/12/2022) [facility] History of Past illness Narrative* Problem Noted Date Resolved Date Polyhydramnios in third trimester 05/11/2019 06/02/2021 Overview: 06/02/19-Growth US today 81st percentile, MAYRA 26 Polyhydramnios, BPP 8/8, continue weekly NST. Growth/MAYRA in 3 weeks if not delivered. Rupal Hutchison APRN.CNM 05/11/19 - needs weekly NSTs, await formal US read - Anjana Ignacio MD Advanced maternal age in multigravida 03/04/2019 06/02/2021 UTI (urinary tract infection) in , ante 02/10/2019 06/02/2021 Overview: 02/04/19-Treated for UTI at [facility]. Started on Macrobid. Urine BERTHA next visit. Rupal Hutchison APRN.CNM Hyperlipidemia LDL goal < 130 03/16/2014 Overview: She was diagnosed with hyperlipidemia a 2009. Last Assessment & Plan: She was diagnosed with hyperlipidemia a 2009. documented as of this encounter (statuses as of 04/26/2022) [facility] History of Past illness Narrative* Problem Noted Date Resolved Date Polyhydramnios in third trimester 05/11/2019 06/02/2021 Overview: 06/02/19-Growth US today 81st percentile, MAYRA 26 Polyhydramnios, BPP 8/8, continue weekly NST. Growth/MAYRA in 3 weeks if not delivered. Rupal Hutchison APRN.CNM 05/11/19 - needs weekly NSTs, await formal US read - Anjana Ignacio MD Advanced maternal age in multigravida 03/04/2019 06/02/2021 UTI (urinary tract infection) in , ante 02/10/2019 06/02/2021 Overview: 02/04/19-Treated for UTI at [facility]. Started on Macrobid. Urine BERTHA next visit. Rupal Hutchison APRN.CNM Hyperlipidemia LDL goal < 130 03/16/2014 Overview: She was diagnosed with hyperlipidemia a 2009. Last Assessment & Plan: She was diagnosed with hyperlipidemia a 2009. documented as of this encounter (statuses as of 05/08/2022) [facility] History of Past illness Narrative* Problem Noted Date Resolved Date Polyhydramnios in third trimester 05/11/2019 06/02/2021 Overview: 06/02/19-Growth US today 81st percentile, MAYRA 26 Polyhydramnios, BPP 8/8, continue weekly NST. Growth/MAYRA in 3 weeks if not delivered. Rupal Hutchison APRN.CNM 05/11/19 - needs weekly NSTs, await formal US read - Anjana Ignacio MD Advanced maternal age in multigravida 03/04/2019 06/02/2021 UTI (urinary tract infection) in , ante 02/10/2019 06/02/2021 Overview: 02/04/19-Treated for UTI at [facility]. Started on Macrobid. Urine BERTHA next visit. Rupal Hutchison APRN.CNM Hyperlipidemia LDL goal < 130 03/16/2014 Overview: She was diagnosed with hyperlipidemia a 2009. Last Assessment & Plan: She was diagnosed with hyperlipidemia a 2009. documented as of this encounter (statuses as of 05/14/2022) [facility] History of Past illness Narrative* Problem Noted Date Resolved Date Polyhydramnios in third trimester 05/11/2019 06/02/2021 Overview: 06/02/19-Growth US today 81st percentile, MAYRA 26 Polyhydramnios, BPP 8/8, continue weekly NST. Growth/MAYRA in 3 weeks if not delivered. Rupal Hutchison APRN.CNM 05/11/19 - needs weekly NSTs, await formal US read - Anjana Ignacio MD Advanced maternal age in multigravida 03/04/2019 06/02/2021 UTI (urinary tract infection) in , ante 02/10/2019 06/02/2021 Overview: 02/04/19-Treated for UTI at [facility]. Started on Macrobid. Urine BERTHA next visit. Rupal Hutchison APRN.CNM Hyperlipidemia LDL goal < 130 03/16/2014 Overview: She was diagnosed with hyperlipidemia a 2009. Last Assessment & Plan: She was diagnosed with hyperlipidemia a 2009. documented as of this encounter (statuses as of 05/25/2022) [facility] History of Past illness Narrative* Problem Noted Date Resolved Date Polyhydramnios in third trimester 05/11/2019 06/02/2021 Overview: 06/02/19-Growth US today 81st percentile, MAYRA 26 Polyhydramnios, BPP 8/8, continue weekly NST. Growth/MAYRA in 3 weeks if not delivered. Rupal Hutchison APRN.CNM 05/11/19 - needs weekly NSTs, await formal US read - Anjana Ignacio MD Advanced maternal age in multigravida 03/04/2019 06/02/2021 UTI (urinary tract infection) in , ante 02/10/2019 06/02/2021 Overview: 02/04/19-Treated for UTI at [facility]. Started on Macrobid. Urine BERTHA next visit. Rupal Hutchison APRN.CNM Hyperlipidemia LDL goal < 130 03/16/2014 Overview: She was diagnosed with hyperlipidemia a 2009. Last Assessment & Plan: She was diagnosed with hyperlipidemia a 2009. documented as of this encounter (statuses as of 06/18/2022) [facility] History of Past illness Narrative* Problem Noted Date Resolved Date Polyhydramnios in third trimester 05/11/2019 06/02/2021 Overview: 06/02/19-Growth US today 81st percentile, MAYRA 26 Polyhydramnios, BPP 8/8, continue weekly NST. Growth/MAYRA in 3 weeks if not delivered. Rupal Hutchison APRN.CNM 05/11/19 - needs weekly NSTs, await formal US read - Anjana Ignacio MD Advanced maternal age in multigravida 03/04/2019 06/02/2021 UTI (urinary tract infection) in , ante 02/10/2019 06/02/2021 Overview: 02/04/19-Treated for UTI at [facility]. Started on Macrobid. Urine BERTHA next visit. Rupal Hutchison APRN.CNM Hyperlipidemia LDL goal < 130 03/16/2014 Overview: She was diagnosed with hyperlipidemia a 2009. Last Assessment & Plan: She was diagnosed with hyperlipidemia a 2009. documented as of this encounter (statuses as of 07/02/2022) [facility] History of Past illness Narrative* Problem Noted Date Resolved Date Polyhydramnios in third trimester 05/11/2019 06/02/2021 Overview: 06/02/19-Growth US today 81st percentile, MAYRA 26 Polyhydramnios, BPP 8/8, continue weekly NST. Growth/MAYRA in 3 weeks if not delivered. Rupal Hutchison APRN.CNM 05/11/19 - needs weekly NSTs, await formal US read - Anjana Ignacio MD Advanced maternal age in multigravida 03/04/2019 06/02/2021 UTI (urinary tract infection) in , ante 02/10/2019 06/02/2021 Overview: 02/04/19-Treated for UTI at [facility]. Started on Macrobid. Urine BERTHA next visit. Rupal Hutchison APRN.CNM Hyperlipidemia LDL goal < 130 03/16/2014 Overview: She was diagnosed with hyperlipidemia a 2009. Last Assessment & Plan: She was diagnosed with hyperlipidemia a 2009. documented as of this encounter (statuses as of 07/16/2022) [facility] History of Past illness Narrative* Problem Noted Date Resolved Date Polyhydramnios in third trimester 05/11/2019 06/02/2021 Overview: 06/02/19-Growth US today 81st percentile, MAYRA 26 Polyhydramnios, BPP 8/8, continue weekly NST. Growth/MAYRA in 3 weeks if not delivered. Rupal Hutchison APRN.CNM 05/11/19 - needs weekly NSTs, await formal US read - Anjana Ignacio MD Advanced maternal age in multigravida 03/04/2019 06/02/2021 UTI (urinary tract infection) in , ante 02/10/2019 06/02/2021 Overview: 02/04/19-Treated for UTI at [facility]. Started on Macrobid. Urine BERTHA next visit. Rupal Hutchison APRN.CNM Hyperlipidemia LDL goal < 130 03/16/2014 Overview: She was diagnosed with hyperlipidemia a 2009. Last Assessment & Plan: She was diagnosed with hyperlipidemia a 2009. documented as of this encounter (statuses as of 09/21/2022) [facility] History of Past illness Narrative* Problem Noted Date Resolved Date Polyhydramnios in third trimester 05/11/2019 06/02/2021 Overview: 06/02/19-Growth US today 81st percentile, MAYRA 26 Polyhydramnios, BPP 8/8, continue weekly NST. Growth/MAYRA in 3 weeks if not delivered. Rupal Hutchison APRN.CNM 05/11/19 - needs weekly NSTs, await formal US read - Anjana Ignacio MD Advanced maternal age in multigravida 03/04/2019 06/02/2021 UTI (urinary tract infection) in , ante 02/10/2019 06/02/2021 Overview: 02/04/19-Treated for UTI at [facility]. Started on Macrobid. Urine BERTHA next visit. Rupal Hutchison APRN.CNM Hyperlipidemia LDL goal < 130 03/16/2014 Overview: She was diagnosed with hyperlipidemia a 2009. Last Assessment & Plan: She was diagnosed with hyperlipidemia a 2009. documented as of this encounter (statuses as of 09/21/2022) [facility] History of Past illness Narrative* Problem Noted Date Diagnosed Date Resolved Date Polyhydramnios in third trimester 05/11/2019 06/02/2021 Overview: 06/02/19-Growth US today 81st percentile, MAYRA 26 Polyhydramnios, BPP 8/8, continue weekly NST. Growth/MAYRA in 3 weeks if not delivered. Rupal Hutchison APRN.CNM 05/11/19 - needs weekly NSTs, await formal US read - Anjana Ignacio MD Advanced maternal age in multigravida 03/04/2019 06/02/2021 UTI (urinary tract infection ) in , antepartum 02/10/2019 06/02/2021 Overview: 02/04/19-Treated for UTI at [facility]. Started on Macrobid. Urine BERTHA next visit. Rupal Hutchison APRN.CNM Hyperlipidemia LDL goal < 130 03/16/2014 10/11/2014 Overview: She was diagnosed with hyperlipidemia a 2009. Last Assessment & Plan: She was diagnosed with hyperlipidemia a 2009. documented as of this encounter (statuses as of 09/28/2022) [facility] History of Past illness Narrative* Problem Noted Date Diagnosed Date Resolved Date Polyhydramnios in third trimester 05/11/2019 06/02/2021 Overview: 06/02/19-Growth US today 81st percentile, MAYRA 26 Polyhydramnios, BPP 8/8, continue weekly NST. Growth/MAYRA in 3 weeks if not delivered. Rupal Hutchison APRN.CNM 05/11/19 - needs weekly NSTs, await formal US read - Anjana Ignacio MD Advanced maternal age in multigravida 03/04/2019 06/02/2021 UTI (urinary tract infection ) in , antepartum 02/10/2019 06/02/2021 Overview: 02/04/19-Treated for UTI at [facility]. Started on Macrobid. Urine BERTHA next visit. Rupal Hutchison APRN.CNM Hyperlipidemia LDL goal < 130 03/16/2014 10/11/2014 Overview: She was diagnosed with hyperlipidemia a 2009. Last Assessment & Plan: She was diagnosed with hyperlipidemia a 2009. documented as of this encounter (statuses as of 10/12/2022) [facility] History of Past illness Narrative* Problem Noted Date Diagnosed Date Resolved Date Polyhydramnios in third trimester 05/11/2019 06/02/2021 Overview: 06/02/19-Growth US today 81st percentile, MAYRA 26 Polyhydramnios, BPP 8/8, continue weekly NST. Growth/MAYRA in 3 weeks if not delivered. Rupal Hutchison APRN.CNM 05/11/19 - needs weekly NSTs, await formal US read - Anjana Ignacio MD Advanced maternal age in multigravida 03/04/2019 06/02/2021 UTI (urinary tract infection ) in , antepartum 02/10/2019 06/02/2021 Overview: 02/04/19-Treated for UTI at [facility]. Started on Macrobid. Urine BERTHA next visit. Rupal Hutchison APRN.CNM Hyperlipidemia LDL goal < 130 03/16/2014 10/11/2014 Overview: She was diagnosed with hyperlipidemia a 2009. Last Assessment & Plan: She was diagnosed with hyperlipidemia a 2009. documented as of this encounter (statuses as of 12/22/2022) [facility] History of Past illness Narrative* Problem Noted Date Diagnosed Date Resolved Date Polyhydramnios in third trimester 05/11/2019 06/02/2021 Overview: 06/02/19-Growth US today 81st percentile, MAYRA 26 Polyhydramnios, BPP 8/8, continue weekly NST. Growth/MAYRA in 3 weeks if not delivered. Rupal Hutchison APRN.CNM 05/11/19 - needs weekly NSTs, await formal US read - Anjana Ignacio MD Advanced maternal age in multigravida 03/04/2019 06/02/2021 UTI (urinary tract infection ) in , antepartum 02/10/2019 06/02/2021 Overview: 02/04/19-Treated for UTI at [facility]. Started on Macrobid. Urine BERTHA next visit. Rupal Huthcison APRN.CNM Hyperlipidemia LDL goal < 130 03/16/2014 10/11/2014 Overview: She was diagnosed with hyperlipidemia a 2009. Last Assessment & Plan: She was diagnosed with hyperlipidemia a 2009. documented as of this encounter (statuses as of 01/16/2023) [facility] History of Past illness Narrative* Problem Noted Date Diagnosed Date Resolved Date Polyhydramnios in third trimester 05/11/2019 06/02/2021 Overview: 06/02/19-Growth US today 81st percentile, MAYRA 26 Polyhydramnios, BPP 8/8, continue weekly NST. Growth/MAYRA in 3 weeks if not delivered. Rupal Hutchison APRN.CNM 05/11/19 - needs weekly NSTs, await formal US read - Anjana Ignacio MD Advanced maternal age in multigravida 03/04/2019 06/02/2021 UTI (urinary tract infection ) in , antepartum 02/10/2019 06/02/2021 Overview: 02/04/19-Treated for UTI at [facility]. Started on Macrobid. Urine BERTHA next visit. Rupal Hutchison APRN.CNM Hyperlipidemia LDL goal < 130 03/16/2014 10/11/2014 Overview: She was diagnosed with hyperlipidemia a 2009. Last Assessment & Plan: She was diagnosed with hyperlipidemia a 2009. documented as of this encounter (statuses as of 01/18/2023) [facility] History of Past illness Narrative* Problem Noted Date Diagnosed Date Resolved Date Polyhydramnios in third trimester 05/11/2019 06/02/2021 Overview: 06/02/19-Growth US today 81st percentile, MAYRA 26 Polyhydramnios, BPP 8/8, continue weekly NST. Growth/MAYRA in 3 weeks if not delivered. Rupal Hutchison APRN.CNM 05/11/19 - needs weekly NSTs, await formal US read - Anjana Ignacio MD Advanced maternal age in multigravida 03/04/2019 06/02/2021 UTI (urinary tract infection ) in , antepartum 02/10/2019 06/02/2021 Overview: 02/04/19-Treated for UTI at [facility]. Started on Macrobid. Urine BERTHA next visit. Rupal Hutchison APRN.CNM Hyperlipidemia LDL goal < 130 03/16/2014 10/11/2014 Overview: She was diagnosed with hyperlipidemia a 2009. Last Assessment & Plan: She was diagnosed with hyperlipidemia a 2009. documented as of this encounter (statuses as of 01/20/2023) [facility] History of Past illness Narrative* Problem Noted Date Diagnosed Date Resolved Date Polyhydramnios in third trimester 05/11/2019 06/02/2021 Overview: 06/02/19-Growth US today 81st percentile, MAYRA 26 Polyhydramnios, BPP 8/8, continue weekly NST. Growth/MAYRA in 3 weeks if not delivered. Rupal Hutchison APRN.CNM 05/11/19 - needs weekly NSTs, await formal US read - Anjana Ignacio MD Advanced maternal age in multigravida 03/04/2019 06/02/2021 UTI (urinary tract infection ) in , antepartum 02/10/2019 06/02/2021 Overview: 02/04/19-Treated for UTI at [facility]. Started on Macrobid. Urine BERTHA next visit. Rupal Hutchison APRN.CNM Hyperlipidemia LDL goal < 130 03/16/2014 10/11/2014 Overview: She was diagnosed with hyperlipidemia a 2009. Last Assessment & Plan: She was diagnosed with hyperlipidemia a 2009. documented as of this encounter (statuses as of 02/05/2023) [facility] History of Past illness Narrative* Problem Noted Date Diagnosed Date Resolved Date Polyhydramnios in third trimester 05/11/2019 06/02/2021 Overview: 06/02/19-Growth US today 81st percentile, MAYRA 26 Polyhydramnios, BPP 8/8, continue weekly NST. Growth/MAYRA in 3 weeks if not delivered. Rupal Hutchison APRN.CNM 05/11/19 - needs weekly NSTs, await formal US read - Anjana Ignacio MD Advanced maternal age in multigravida 03/04/2019 06/02/2021 UTI (urinary tract infection ) in , antepartum 02/10/2019 06/02/2021 Overview: 02/04/19-Treated for UTI at [facility]. Started on Macrobid. Urine BERTHA next visit. Rupal Hutchison APRN.CNM Hyperlipidemia LDL goal < 130 03/16/2014 10/11/2014 Overview: She was diagnosed with hyperlipidemia a 2009. Last Assessment & Plan: She was diagnosed with hyperlipidemia a 2009. documented as of this encounter (statuses as of 03/02/2023) [facility] History of Past illness Narrative* Problem Noted Date Diagnosed Date Resolved Date Polyhydramnios in third trimester 05/11/2019 06/02/2021 Overview: 06/02/19-Growth US today 81st percentile, MAYRA 26 Polyhydramnios, BPP 8/8, continue weekly NST. Growth/MAYRA in 3 weeks if not delivered. Rupal Hutchison APRN.CNM 05/11/19 - needs weekly NSTs, await formal US read - Anjana Ignacio MD Advanced maternal age in multigravida 03/04/2019 06/02/2021 UTI (urinary tract infection ) in , antepartum 02/10/2019 06/02/2021 Overview: 02/04/19-Treated for UTI at [facility]. Started on Macrobid. Urine BERTHA next visit. Rupal Hutchison APRN.CNM Hyperlipidemia LDL goal < 130 03/16/2014 10/11/2014 Overview: She was diagnosed with hyperlipidemia a 2009. Last Assessment & Plan: She was diagnosed with hyperlipidemia a 2009. documented as of this encounter (statuses as of 04/26/2023) [facility] History of Past illness Narrative* Problem Noted Date Diagnosed Date Resolved Date Polyhydramnios in third trimester 05/11/2019 06/02/2021 Overview: 06/02/19-Growth US today 81st percentile, MAYRA 26 Polyhydramnios, BPP 8/8, continue weekly NST. Growth/MAYRA in 3 weeks if not delivered. Rupal Hutchison APRN.CNM 05/11/19 - needs weekly NSTs, await formal US read - Anjana Ignacio MD Advanced maternal age in multigravida 03/04/2019 06/02/2021 UTI (urinary tract infection ) in , antepartum 02/10/2019 06/02/2021 Overview: 02/04/19-Treated for UTI at [facility]. Started on Macrobid. Urine BERTHA next visit. Rupal Hutchison APRN.CNM Hyperlipidemia LDL goal < 130 03/16/2014 10/11/2014 Overview: She was diagnosed with hyperlipidemia a 2009. Last Assessment & Plan: She was diagnosed with hyperlipidemia a 2009. documented as of this encounter (statuses as of 05/10/2023) [facility] Missed menses- Primary Absence of menstruation [facility] Encounter for insertion of mirena IUD- Primary Encounter for insertion of intrauterine contraceptive device Encounter for IUD insertion Encounter for insertion of intrauterine contraceptive device [facility] Diagnosis Sinobronchitis- Primary Unspecified sinusitis (chronic) Cough [facility] Diagnosis Numbness and tingling of left upper extremity- Primary [facility] Diagnosis Exposure to 2019 novel coronavirus- Primary [facility] Diagnosis Acute non-recurrent sinusitis, unspecified location- Primary Acute cough Wheezing Shortness of breath [facility] Diagnosis Chronic midline low back pain with bilateral sciatica- Primary [facility] Diagnosis Lower abdominal tenderness- Primary Abdominal tenderness, other specified site Periumbilical abdominal pain Abdominal pain, periumbilic Hematuria, unspecified type [facility] Diagnosis Bronchitis- Primary Bronchitis, not specified as acute or chronic documented [facility] Diagnosis Pure hypercholesterolemia documented [facility]* Diagnosis Encounter for screening mammogram for breast cancer documented [facility] Diagnosis Dizziness- Primary Dizziness and giddiness Shakiness Abnormal involuntary movements Vitamin D deficiency Unspecified vitamin D deficiency Family history of diabetes mellitus Annual physical exam Routine general medical examination at a health care facility documented [facility]* Diagnosis Abdominal pain, RLQ- Primary Abdominal pain, right lower quadrant Nausea Nausea alone Change in stool Nonspecific abnormal finding in stool contents [facility] Diagnosis Abdominal pain, RLQ- Primary Abdominal pain, right lower quadrant Change in stool Nonspecific abnormal finding in stool contents Nausea Nausea alone Witnessed episode of apnea Excessive daytime sleepiness Snoring Other dyspnea and respiratory abnormality [facility] Diagnosis Pure hypercholesterolemia documented [facility] Diagnosis Change in stool- Primary Nonspecific abnormal finding in stool contents Excessive daytime sleepiness Witnessed episode of apnea documented [facility] Diagnosis Viral illness- Primary Unspecified viral infection, in conditions classified elsewhere and of unspecified site documented [facility]* Diagnosis Pure hypercholesterolemia documented [facility]* Diagnosis Periumbilical abdominal pain Abdominal pain, periumbilic Hematuria, unspecified type Lower abdominal tenderness Abdominal tenderness, other specified site documented in this encounter [facility] note* Diagnosis Anxiety- Primary Anxiety state, unspecified Dizziness Dizziness and giddiness Gastroesophageal reflux disease without esophagitis Esophageal reflux documented in this encounter [facility] note* Diagnosis Pain and swelling of left lower leg- Primary documented in this encounter [facility] note* Diagnosis Primary hypertension- Primary Unspecified essential hypertension Vitamin D deficiency Unspecified vitamin D deficiency Dizziness Dizziness and giddiness Anxiety Anxiety state, unspecified Sleep disturbance Sleep disturbance, unspecified Seasonal allergies Allergic rhinitis, cause unspecified documented in this encounter [facility] note* Diagnosis Pure hypercholesterolemia documented in this encounter [facility] for referral (narrative)* Outpatient Procedure (Routine) - Pending Review Specialty Diagnoses / Procedures Referred By Zeenat oropeza Referred To Contact [facility] Diagnoses Encounter for IUD insertion Procedures INSERT INTRAUTERINE DEVICE LEVONORGESTREL IU 52MG 5 YR INSERT INTRAUTERINE DEVICE Billie Ma APRN.CNP [address] [place] [address] [facility] [address] [place] [address] Referral ID Status Reason Start Date Expiration Date Visits Requested Visits Authorized [id number] Pending Review Auto-Generat ed Referral 06/16/2021 06/16/2022 1 1 [facility] for referral (narrative)* Diagnostic Procedure Only (Routine) - Authorized Specialty Diagnoses / Procedures Referred By Zeenat oropeza Referred To Contact [facility] Diagnoses Periumbilical abdominal pain Hematuria, unspecified type Lower abdominal tenderness Procedures US FEMALE PELVIS TRANSVAG US TRANSVAGINAL Ashley Rodriguez APRN.CNP [address] [place] [address] [facility] Referral ID Status Reason Start Date Expiration Date Visits Requested Visits Authorized [id number] Authorized Auto-Generat ed Referral 04/25/2022 05/25/2023 1 1 * Diagnostic Procedure Only (Routine) - Authorized Specialty Diagnoses / Procedures Referred By Contac t Referred To Contact [facility] Diagnoses Periumbilical abdominal pain Hematuria, unspecified type Lower abdominal tenderness Procedures US FEMALE PELVIS TRANSABD LTD US PELVIC NONOBSTETRIC IMAGE DCMTN LIMITED/F/U Ashley Rodriguez APRN.GLASS VIAL FILLER [address] [place] [address] [facility] Referral ID Status Reason Start Date Expiration Date Visits Requested Visits Authorized [id number] Authorized Auto-Generat ed Referral 04/25/2022 05/25/2023 1 1 [facility] for referral (narrative)* Diagnostic Procedure Only (Routine) - Pending Review Specialty Diagnoses / Procedures Referred By Zeenat t Referred To Contact [facility] Diagnoses Encounter for screening mammogram for breast cancer Procedures LORAINE SCREENING SCREENING MAMMOGRAPHY BI 2-VIEW BREAST INC Ashley Cleveland MD [address] [place] [address] [facility] [address] [facility] [place] [address] Referral ID Status Reason Start Date Expiration Date Visits Requested Visits Authorized [id number] Pending Review Auto-Generat ed Referral 06/27/2022 07/27/2023 1 1 [facility] for referral (narrative)* Diagnostic Procedure Only (Routine) - Closed Specialty Diagnoses / Procedures Referred By Contac t Referred To Contact [facility] Diagnoses Periumbilical abdominal pain Hematuria, unspecified type Lower abdominal tenderness Procedures US FEMALE PELVIS TRANSVAG US TRANSVAGINAL Ashley Rodriguez APRN.GLASS VIAL FILLER [address] [place] [address] [place] [address] Referral ID Status Reason Start Date Expiration Date V isits Requested Visits Authorized [id number] Closed Auto-Generate d Referral 04/25/2022 05/25/2023 1 1 * Diagnostic Procedure Only (Routine) - Closed Specialty Diagnoses / Procedures Referred By Zeenat oropeza Referred To Contact [facility] Diagnoses Periumbilical abdominal pain Hematuria, unspecified type Lower abdominal tenderness Procedures US FEMALE PELVIS TRANSABD LTD US PELVIC NONOBSTETRIC IMAGE DCMTN LIMITED/F/U Ashley Rodriguez APRN.GLASS VIAL FILLER [address] [place] [address] [place] [address] Referral ID Status Reason Start Date Expiration Date V isits Requested Visits Authorized [id number] Closed Auto-Generate d Referral 04/25/2022 05/25/2023 1 1 [facility] Medications Administered Section Inactive Administered Medications - up to 3 most recent administrations Medication Order MAR Action Action Date Dose Rate Site levonorgestrel 20 mcg/24 hours (7 yrs) 52 mg 1 Each intrauterine device (MIRENA) 1 Each, INTRAUTERINE, ONCE (UP TO 30 DAYS AMB), 1 dose, On Sat06/16/21 at 1030, LOT # [id number] EXP 09/15/23 Sonya Peter LPN Hazardous Potential Reproductive Risk Drug: Use appropriate PPE. 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 Procedures CONSULT TO PHYSICAL THERAPY PHYSICAL THERAPY EVALUATION HIGH COMPLEX 45 MINS Ashley Rodriguez APRN.GLASS VIAL FILLER [address] [place] [address] [facility] [address] [place] [address] Referral ID Status Reason Start Date Expiration Date Visits Requested Visits Authorized [id number] Authorized Auto-Generat ed Referral 03/18/2021 03/17/2022 30 30 Specialty Diagnoses / Procedures Referred By Zeenat oropeza Referred To Contact [facility] Diagnoses Chronic midline low back pain with bilateral sciatica Procedures XR LUMBAR GENERAL 3V AP/LAT/L5-S1 RADEX SPINE LUMBOSACRAL 2/3 VIEWS Ashley Rodriguez APRN.GLASS VIAL FILLER [address] [place] [address] [facility] Referral ID Status Reason Start Date Expiration Date V isits Requested Visits Authorized [id number] Closed Auto-Generate d Referral 02/12/2022 03/14/2023 1 1 Specialty Diagnoses / Procedures Referred By Zeenat t Referred To Contact Gastroenterology Diagnoses Change in stool Abdominal pain, RLQ Nausea Procedures CONSULT TO GASTROENTEROLOGY OFFICE/OUTPATIENT NEW HIGH MDM 60-74 MINUTES Vincent Page PA-C [address] [place] [address] Referral ID Status Reason Start Date Expiration Date Visits Requested Visits Authorized [id number] Authorized PCP Requested Referral 09/28/2022 09/28/2023 1 1 Specialty Diagnoses / Procedures Referred By Zeenat oropeza [facility] Diagnoses Witnessed episode of apnea Excessive daytime sleepiness Snoring Procedures HOME SLEEP APNEA TEST (HSAT) SLEEP STD AIRFLOW HRT RATE&O2 SAT EFFORT UNATT Vincent Page PA-C [address] [place] [address] [facility] [address] [place] [address] Referral ID Status Reason Start Date Expiration Date Visits Requested Visits Authorized [id number] Pending Review Auto-Generat ed Referral 09/28/2022 09/28/2023 1 1 Health Concerns Infection Onset Date Last Indicated Resolved Time COVID-19 Confirmed 05/07/2022 05/07/2022 Infection Onset Date Last Indicated Resolved Time COVID-19 Rule-Out 01/16/2023 01/16/2023 01/16/2023 7:26 PM EDT Summary Purpose Family History No Family History Records Found Advance Directives No Advanced Directives Records Found Additional Source Comments Source Comments (unrecognize d section and content) In the event this informatio n is protected by the Federal Confidentiality of Alcohol and Drug Abuse Patient Records regulations: The Federal rules restrict any use of the information to criminally investigate or prosecute any alcohol or drug abuse patient.[facility] event this information is protected by the Federal Confidentiality of Alcohol and Drug Abuse Patient Records regulations: The Federal rules restrict any use of the information to criminally investigate or prosecute any alcohol or drug abuse patient.[facility] the event this information is protected by the Federal Confidentiality of Alcohol and Drug Abuse Patient Records regulations: The Federal rules restrict any use of the information to criminally investigate or prosecute any alcohol or drug abuse patient.[facility] the event this information is protected by the Federal Confidentiality of Alcohol and Drug Abuse Patient Records regulations: The Federal rules restrict any use of the information to criminally investigate or prosecute any alcohol or drug abuse patient.[facility] the event this information is protected by the Federal Confidentiality of Alcohol and Drug Abuse Patient Records regulations: The Federal rules restrict any use of the information to criminally investigate or prosecute any alcohol or drug abuse patient.[facility] the event this information is protected by the Federal Confidentiality of Alcohol and Drug Abuse Patient Records regulations: The Federal rules restrict any use of the information to criminally investigate or prosecute any alcohol or drug abuse patient.[facility] the event this information is protected by the Federal Confidentiality of Alcohol and Drug Abuse Patient Records regulations: The Federal rules restrict any use of the information to criminally investigate or prosecute any alcohol or drug abuse patient.[facility] the event this information is protected by the Federal Confidentiality of Alcohol and Drug Abuse Patient Records regulations: The Federal rules restrict any use of the information to criminally investigate or prosecute any alcohol or drug abuse patient.[facility] the event this information is protected by the Federal Confidentiality of Alcohol and Drug Abuse Patient Records regulations: The Federal rules restrict any use of the information to criminally investigate or prosecute any alcohol or drug abuse patient.[facility] the event this information is protected by the Federal Confidentiality of Alcohol and Drug Abuse Patient Records regulations: The Federal rules restrict any use of the information to criminally investigate or prosecute any alcohol or drug abuse patient.[facility] the event this information is protected by the Federal Confidentiality of Alcohol and Drug Abuse Patient Records regulations: The Federal rules restrict any use of the information to criminally investigate or prosecute any alcohol or drug abuse patient.[facility] the event this information is protected by the Federal Confidentiality of Alcohol and Drug Abuse Patient Records regulations: The Federal rules restrict any use of the information to criminally investigate or prosecute any alcohol or drug abuse patient.[facility] the event this information is protected by the Federal Confidentiality of Alcohol and Drug Abuse Patient Records regulations: The Federal rules restrict any use of the information to criminally investigate or prosecute any alcohol or drug abuse patient.[facility] the event this information is protected by the Federal Confidentiality of Alcohol and Drug Abuse Patient Records regulations: The Federal rules restrict any use of the information to criminally investigate or prosecute any alcohol or drug abuse patient.[facility] the event this information is protected by the Federal Confidentiality of Alcohol and Drug Abuse Patient Records regulations: The Federal rules restrict any use of the information to criminally investigate or prosecute any alcohol or drug abuse patient.[facility] the event this information is protected by the Federal Confidentiality of Alcohol and Drug Abuse Patient Records regulations: The Federal rules restrict any use of the information to criminally investigate or prosecute any alcohol or drug abuse patient.[facility] the event this information is protected by the Federal Confidentiality of Alcohol and Drug Abuse Patient Records regulations: The Federal rules restrict any use of the information to criminally investigate or prosecute any alcohol or drug abuse patient.[facility] the event this information is protected by the Federal Confidentiality of Alcohol and Drug Abuse Patient Records regulations: The Federal rules restrict any use of the information to criminally investigate or prosecute any alcohol or drug abuse patient.[facility] the event this information is protected by the Federal Confidentiality of Alcohol and Drug Abuse Patient Records regulations: The Federal rules restrict any use of the information to criminally investigate or prosecute any alcohol or drug abuse patient.[facility] the event this information is protected by the Federal Confidentiality of Alcohol and Drug Abuse Patient Records regulations: The Federal rules restrict any use of the information to criminally investigate or prosecute any alcohol or drug abuse patient.[facility] the event this information is protected by the Federal Confidentiality of Alcohol and Drug Abuse Patient Records regulations: The Federal rules restrict any use of the information to criminally investigate or prosecute any alcohol or drug abuse patient.[facility] the event this information is protected by the Federal Confidentiality of Alcohol and Drug Abuse Patient Records regulations: The Federal rules restrict any use of the information to criminally investigate or prosecute any alcohol or drug abuse patient.[facility] the event this information is protected by the Federal Confidentiality of Alcohol and Drug Abuse Patient Records regulations: The Federal rules restrict any use of the information to criminally investigate or prosecute any alcohol or drug abuse patient.[facility] the event this information is protected by the Federal Confidentiality of Alcohol and Drug Abuse Patient Records regulations: The Federal rules restrict any use of the information to criminally investigate or prosecute any alcohol or drug abuse patient.[facility] the event this information is protected by the Federal Confidentiality of Alcohol and Drug Abuse Patient Records regulations: The Federal rules restrict any use of the information to criminally investigate or prosecute any alcohol or drug abuse patient.[facility] the event this information is protected by the Federal Confidentiality of Alcohol and Drug Abuse Patient Records regulations: The Federal rules restrict any use of the information to criminally investigate or prosecute any alcohol or drug abuse patient.[facility] the event this information is protected by the Federal Confidentiality of Alcohol and Drug Abuse Patient Records regulations: The Federal rules restrict any use of the information to criminally investigate or prosecute any alcohol or drug abuse patient.[facility] Reason for Visit (unrecogniz ed section and content) Reason Onset Date Comments Insertion Of IUD 06/16/2021 Specialty Diagnoses / Procedures Referred By Zeenat oropeza Referred To Contact [facility] Diagnoses Encounter for insertion of intrauterine contraceptive device (IUD) Encounter for removal of intrauterine contraceptive device Procedures INSERT INTRAUTERINE DEVICE LEVONORGESTREL IU 52MG 5 YR INSERT INTRAUTERINE DEVICE REMOVE INTRAUTERINE DEVICE Billie Ma, ADJUNCT PHYSICAL EDUCATION INSTRUCTOR.GLASS VIAL FILLER [address] [place] [address] [facility] [address] [place] [address] Referral ID Status Reason Start Date Expiration Date Visits Requested Visits Authorized [id number] Authorized Auto-Generat ed Referral 06/02/2021 03/17/2022 2 2 Reason Comments Head Congestion chest congestion, co ugh, sore throat x 5 days Reason Comments Back Pain upper back pain radi ating to L arm with tingling x3 days Reason Comments Sore Throat MACHUCA, congestion and s ore throat x 8 days Reason Comments Head Congestion Head and chest conge stion x 10-14 days Reason Comments Recheck Follow up Reason Comments Recheck Possible hernia Reason Comments Cough ST, chest congestion x6 days Reason Comments Results Reason Comments Patient Question Reason Comments Recheck Follow up vertigo an d elevated BP Reason Comments Same Day Appointment stomach cramping an d loose stools Reason Comments do not have script requested Reason Comments Follow Up 1 week follow up-sto mach cramping and loose stools and now c/o fatigue Reason Comments Follow Up 4 week follow up, st omach pain and loose stool, no longer symptomatic Reason Comments Cough Congestion, fatigue, MACHUCA, vertigo is back x 2 days Reason Comments Radiology US Specialty Diagnoses / Procedures Referred By Zeenat oropeza Referred To Contact [facility] Diagnoses Periumbilical abdominal pain Hematuria, unspecified type Lower abdominal tenderness Procedures US FEMALE PELVIS TRANSVAG US TRANSVAGINAL Ashley Rodriguez APRN.GLASS VIAL FILLER [address] [place] [address] [place] [address] Referral ID Status Reason Start Date Expiration Date V isits Requested Visits Authorized [id number] Closed Auto-Generate d Referral 04/25/2022 05/25/2023 1 1 Reason Comments Follow Up 4 week follow up- mo od and sleep, also patient c/o acid reflux Reason Comments Edema Left leg swelling an d turning red, painful warm to touch, usually worse at HS x week Reason Comments 2 week follow up Care Teams (unrecognized sec tion and content) Underlay Stitcher Relationship Specialty Start Date End Date Ashley Foley MD [address] [place] [address] PCP - General Internal Medicine 03/16/14 Underlay Stitcher Relationship Specialty Start Date End Date Ashley Foley MD [address] [place] [address] PCP - General Internal Medicine 03/16/14 Underlay Stitcher Relationship Specialty Start Date End Date Ashley Foley MD [address] [place] [address] PCP - General Internal Medicine 03/16/14 Underlay Stitcher Relationship Specialty Start Date End Date Ashley Foley MD [address] [place] [address] PCP - General Internal Medicine 03/16/14 Underlay Stitcher Relationship Specialty Start Date End Date Ashley Foley MD [address] [place] [address] PCP - General Internal Medicine 03/16/14 Underlay Stitcher Relationship Specialty Start Date End Date Ashley Foley MD [address] [place] [address] PCP - General Internal Medicine 03/16/14 Underlay Stitcher Relationship Specialty Start Date End Date Ashley Foley MD [address] [place] [address] PCP - General Internal Medicine 03/16/14 Underlay Stitcher Relationship Specialty Start Date End Date Ashley Foley MD [address] [place] [address] PCP - General Internal Medicine 03/16/14 Underlay Stitcher Relationship Specialty Start Date End Date Ashley Foley MD [address] [place] [address] PCP - General Internal Medicine 03/16/14 Underlay Stitcher Relationship Specialty Start Date End Date Ashley Foley MD [address] [place] [address] PCP - General Internal Medicine 03/16/14 Underlay Stitcher Relationship Specialty Start Date End Date Ashley Foley MD [address] [place] [address] PCP - General Internal Medicine 03/16/14 Underlay Stitcher Relationship Specialty Start Date End Date Ashley Foley MD [address] [place] [address] PCP - General Internal Medicine 03/16/14 Underlay Stitcher Relationship Specialty Start Date End Date Ashley Foley MD [address] [place] [address] PCP - General Internal Medicine 03/16/14 Underlay Stitcher Relationship Specialty Start Date End Date Ashley Foley MD [address] [place] [address] PCP - General Internal Medicine 03/16/14 Underlay Stitcher Relationship Specialty Start Date End Date Ashley Foley MD [address] [place] [address] PCP - General Internal Medicine 03/16/14 Underlay Stitcher Relationship Specialty Start Date End Date Ashley Foley MD [address] [place] [address] PCP - General Internal Medicine 03/16/14 Underlay Stitcher Relationship Specialty Start Date End Date Ashley Foley MD [address] [place] [address] PCP - General Internal Medicine 03/16/14 Underlay Stitcher Relationship Specialty Start Date End Date Ashley Foley MD [address] [place] [address] PCP - General Internal Medicine 03/16/14 Underlay Stitcher Relationship Specialty Start Date End Date Ashley Foley MD [address] [place], [place] [id number] PCP - General Internal Medicine 03/16/14 Underlay Stitcher Relationship Specialty Start Date End Date Ashley Foley MD [address] [place], [place] [address] PCP - General Internal Medicine 03/16/14 Underlay Stitcher Relationship Specialty Start Date End Date Ashley Foley MD [address] [place], [place] [id number] PCP - General Internal Medicine 03/16/14 INFORMATION SOURCE (unrecogn ized section and content) FOR RECORDS PERTAINING TO PATIENTS WHO ARE OR HAVE BEEN ENROLLED IN A CHEMICAL DEPENDENCY/SUBSTANCEABUSE PROGRAM, SOME INFORMATION MAY BE OMITTED. This clinical summary was aggregated from multiple sources. Caution should be exercised in using it in the provision of clinical care. This summary normalizes information from multiple sources, and as a consequence, information in this document may materially change the coding, format and clinical context of patient data. In addition, data may be omitted in some cases. CLINICAL DECISIONS SHOULD BE BASED ON THE PRIMARY CLINICAL RECORDS. [facility]. provides no warranty or guarantee of the accuracy or completeness of information in this document.
== END 2023-05-23 19:00 | disposition home or self-care (01) ==
PROVIDERS: Emergency Provider Emergency Medicine; PCP Internal Medicine; Visit Provider Emergency Medicine
DX: K29.70 Gastritis, unspecified, without bleeding (principal); R19.7 Diarrhea, unspecified; R11.2 Nausea with vomiting, unspecified; I10 Essential (primary) hypertension; Z79.899 Other long term (current) drug therapy; R51.9 Headache, unspecified; E66.9 Obesity, unspecified
CPT/HCPCS: 74177; 80053; 81001; 83690; 85025; 96361; 96374; 96375; 99283; J7030; Q9967; A4216; J2405

== ENCOUNTER 2023-11-28 05:18 | Day surgery (SDC) | payer MEDICAID, SELFPAY ==
--- NOTE | 2023-11-06 13:00 | HP.PCM_ITS ---
History and Physical Date of Admission: 11/22/23 HPI: The patient is a 48 year old female presenting for pre-operative visit. She is scheduled for total laparoscopic hysterectomy with bilateral salpingectomy and cystoscopy, , for dysmenorrhea, multiple uterine fibroids, irregular uterine bleeding, and pelvic pain on 11/22/23. Procedure discussed along with risks, benefits and complications. Other alternatives discussed for management. Consent form signed? Yes. PAST MEDICAL HISTORY PAST MEDICAL HISTORY 07/18/2023: Anxiety No date: Encounter for insertion of Mirena IUD 07/18/2023: Gastroesophageal reflux disease without esophagitis 07/17/2023: Hemangioma of liver No date: HTN (hypertension) No date: Hyperlipidemia 07/18/2023: IFG (impaired fasting glucose) No date: Kidney cysts 07/17/2023: NAFL (nonalcoholic fatty liver) No date: Uterine fibroid Comment: on ultrasound 07/18/2023: Vitamin D deficiency PAST SURGICAL HISTORY PAST SURGICAL HISTORY 11/12/2016: CHOLECYSTECTOMY Comment: Cholecystectomy, hernia 06/16/2021: MIRENA CURRENT MEDICATIONS Current Outpatient Medications Medication Sig Dispense Refill ? fluticasone (FLONASE) 50 mcg/actuation nasal spray Use 1 [place] in each nostril two times a day. 9.9 mL 0 ? FLUoxetine (PROZAC) 20 mg capsule Take 1 capsule by mouth once daily. 30 capsule 5 ? Cholecalciferol, Vitamin D3, 125 mcg (5,000 unit) cap Take 1 capsule by mouth once daily. 90 capsule 3 ? traZODone (DESYREL) 50 mg tablet Take 1 tablet by mouth daily at bedtime. 30 tablet 1 ? omeprazole (PRILOSEC) 20 mg capsule Take 1 capsule by mouth daily before breakfast. 1/2 hr before meal. 30 capsule 5 ? ondansetron orally disintegrating (ZOFRAN ODT) 4 mg disintegrating tablet TAKE 1 TABLET orally every EIGHT hours As Needed for nausea and vomiting for FOUR days ? amLODIPine (NORVASC) 10 mg tablet Take 1 tablet by mouth once daily. 90 tablet 3 ? fluticasone (FLOVENT) 110 mcg/actuation inhaler Inhale 2 Puffs as instructed two times a day. Shake well before use. Rinse mouth after use. 1 Each 1 ? albuterol HFA (PROVENTIL HFA, VENTOLIN HFA) 90 mcg/actuation inhaler Inhale 2 Puffs as instructed every 6 hours as needed for wheezing/shortness of breath. 1 Each 0 ? meclizine (ANTIVERT) 25 mg tab Take 1 tablet by mouth every 6 hours as needed (dizziness). 30 tablet 0 ? loperamide (IMODIUM A-D) 2 mg cap(s) Take 1 capsule by mouth four times daily as needed for diarrhea (or cramping/loose stools). 30 capsule 1 ? levonorgestrel (MIRENA) 20 mcg/24 hours (7 yrs) 52 mg IUD 1 Each by INTRAUTERINE route as directed. 1 Each 0 No current facility-administered medications for this visit. ALLERGIES: Penicillins PERSONAL HISTORY: SOCIAL HISTORY Social History Tobacco Use ? Smoking status: Never ? Smokeless tobacco: Never Vaping Use ? Vaping status: Never Used Substance Use Topics ? Alcohol use: No ? Drug use: No FAMILY HISTORY: FAMILY HISTORY FAMILY HISTORY Problem Relation Age of Onset ? Asthma Mother ? Hypertension Mother ? Obesity Mother ? Diabetes Mother ? other (hypercholesterolemia) Mother ? Cancer Father from agent orange ? Diabetes Sister REVIEW OF SYMPTOMS: GENERAL: denies fevers or chills ENDOCRINOLOGY: has not been on steroids Cardiology : denies palpitations or chest pain Respiratory: denies SOB or cough Hematology: denies history of prolonged bleeding or easy bruising or VTE Allergy: Denies history of personal or family history of allergy to anesthesia ] PHYSICAL EXAMINATION: VITALS: Blood pressure 100/66, pulse 80, resp. rate 16, height 154.9 cm (5' 1), weight 91.8 kg (202 lb 6.4 oz), last menstrual period 02/28/2023. GENERAL: The patient is well nourished, well hydrated in no acute distress. , The patient is oriented to time, place, and person. NECK: Supple. No lynphadenopathy, normal thyroid, no thyromegaly. LUNGS: Clear to auscultation bilaterally. no wheezes, rhonchi or rales HEART: Regular rate and rhythm, Normal heart sounds, and No murmurs or gallops Pap/HPV neg 05/2022 EMB done 11/05/22 pelvic US: 07/18/23 IMPRESSION: Fundal fibroid has again enlarged, now measuring 7 cm in maximal dimension (previously 6.1 cm on 05/02/2022). Right ovary is not identified. IUD is appropriately positioned in the cephalad endometrial cavity. Information Systems Planner: ASHISH Transcribe Date/Time: Jul 21 2023 4:21P Dictated by : PAMELA FOFANA MD This examination was interpreted and the report reviewed and electronically signed by: PAMELA FOFANA MD on Jul 21 2023 4:24PM EST Results-Findings * * *Final Report* * * DATE OF EXAM: Jul 18 2023 9:07AM [id number] - US FEMALE PELVIS TRANSVAG / PROCEDURE REASON: multiple diagnoses * * * * Physician Interpretation * * * * EXAMINATION: TRANSVAGINAL AND LIMITED TRANSABDOMINAL FEMALE PELVIC ULTRASOUND CLINICAL HISTORY: Uterine leiomyoma, unspecified location Irregular menstrual bleeding; 47-year-old; premenopausal; intermenstrual bleeding TECHNIQUE: Sonography of the pelvis was performed by transvaginal and transabdominal (limited) techniques. Images were obtained and stored in a permanent archive. MQ: [id number] COMPARISON: 05/02/2022 RESULT: Uterus: -Size: 11.2 x 3.6 x 5.7 cm -Orientation: Anteverted -Endometrial echo complex: Evaluation of the endometrium was adequate. No endometrial abnormality. The endometrial echo complex measured 0.5 cm. IUD is positioned in the cephalad endometrial cavity. -Cervix: Unremarkable. -Adenomyosis assessment: There are no sonographic findings of adenomyosis. -Fibroids: One fibroid is detailed below: Fibroid # 1 -Size: 7 x 6 x 5.7 cm (previously 6.1 x 5 x 5.3 cm) -Location: Fundus -Type: Subserosal and less than 50% intramural (FIGO 6) -Imaging features: Typical imaging features -Differential: None Right Ovary: Not identified. Left Ovary: 3.6 x 2 x 2 cm - Normal sonographic appearance with physiologic follicles. IMPRESSION: AUB, uterine fibroids, dysmenorrhea, pelvic pain PLAN: The risks/benefits/alternatives and personal involved for the planned total laparoscopic hysterectomy with bilateral salpingectomy and cystoscopy were reviewed with the patient. Her questions were answered to her satisfaction and she desires to proceed. Consent was signed. I reviewed with her postop instructions and expectations. H/o Hernia surgery- umbilical, uncertain if mesh. I have reviewed and updated past medical and surgical history, medications and allergies Assessment & Plan Assessment/Plan (1) Uterine fibroid: (2) Abnormal uterine bleeding (AUB): (3) Pelvic pain: (4) Dysmenorrhea:
[2023-11-27 16:42] LABS: Hematocrit 40.9 % (37-47); Hemoglobin 13.2 g/dL (12.0-15.0); Mean Corp Hgb Conc 32.3 g/dL (32-36); Mean Corpuscular Hgb 27.3 pg (27.0-32.0); Mean Corpuscular Volume 84.7 fL (81-99); Platelet Count 343 K/mm3 (150-450); RBC Distribution Width CV 13.2 % (11.6-14.6); RBC Distribution Width SD 40.8 fl (35.1-43.9); Red Blood Count 4.83 M/mm3 (4.2-5.4); White Blood Count 8.6 K/mm3 (4.4-11.0)
[2023-11-27 18:06] LABS: Magnesium 2.3 mg/dL (1.6-2.6)
[2023-11-28] VITALS (16 sets, daily range): BP systolic 109–129; BP diastolic 64–84; PULSE 73–100; RESP 14–23; TEMP 36.4–37.2; O2SAT 93–99; BMI 37.2
[2023-11-28] MEDS: Phenazopyridine 95 MG Tablet 190 MG PO (06:10)
[2023-11-28] MEDS: Celecoxib 200 MG Capsule 400 MG PO (06:10)
[2023-11-28] MEDS: Enoxaparin 40 MG/0.4 ML Syringe SC (06:10)
[2023-11-28] MEDS: Scopolamine 1mg/72hr Patch 1 PATCH TD (06:10)
[2023-11-28] MEDS: Acetaminophen 500 MG Tablet 1000 MG PO ×2 (06:11→15:43)
[2023-11-28] MEDS: Gabapentin 600 MG Tablet PO (06:11)
[2023-11-28 06:14] LABS: Internal QC Validated? YES +Cl - CLEAR BKGD; Pregnancy, Urine Negative Negative
[2023-11-28] MEDS: Lactated Ringers 1,000 ML 15 ML IV (06:17)
[2023-11-28] MEDS: Magnesium 1 GM over 15 mins IV (06:18)
--- NOTE | 2023-11-28 06:49 | PCM.PRE.AN2 ---
ASA Classification* ASA Classification ASA Classification: 3 Assessment & Plan Anesthesia* Anesthesia Assessment Anesthesia Assessment: Discussed sedation and/or anesthesia options, risks, benefits, and alternatives with patient/parents/legal guardian/POA. Questions invited. The patient/parents/legal guardian/POA seems to understand and agrees to proceed with anesthesia plan. Reviewed the physical assessment, medical history, allergy history and patient home medications list prior to surgery/procedure/anesthetic and documented any changes. Performed airway and anesthesia risk assessments. Anesthesia Type Anesthesia Type: General (see written pre anesthesia record for full assessment) Anesthesia Focused Assessment* Temperature: 98.5 F Pulse Rate: 73 Blood Pressure: 121/74 Respiratory Rate: 18 Pulse Ox: 99 Airway Assessment Mouth opens: >3 cm Mallampati Score: II Focused Labs Anesthesia Preop lab: CBC WBC 8.6 K/mm3 (4.4-11.0) 11/27/23 16:13 RBC 4.83 M/mm3 (4.2-5.4) 11/27/23 16:13 Hgb 13.2 g/dL (12.0-15.0) 11/27/23 16:13 Hct 40.9 % (37-47) 11/27/23 16:13 Plt Count 343 K/mm3 (150-450) 11/27/23 16:13 CHEMISTRY Potassium 3.8 mmol/L (3.5-5.1) 05/23/23 14:50 Sodium 139 mmol/L (136-145) 05/23/23 14:50 Magnesium 2.3 mg/dL (1.6-2.6) 11/27/23 16:12 BUN 23 mg/dL (7-18) H 05/23/23 14:50 Creatinine 0.69 mg/dL (0.55-1.02) 05/23/23 14:50 Glucose 146 mg/dL (74-106) H 05/23/23 14:50 COAG PT 13.4 SECONDS (11.7-14.9) 11/08/16 11:32 HCG, Quant 21156 mIU/mL (1-3) H 11/06/18 20:00 Urine Test Negative Negative 11/28/23 05:35 Pre-Assessment Diagnosis/Proposed Procedure Planned Operative Procedure(s): TOTAL LAP HYSTERECTOMY WITH BSO CYSTO Anesthesia History Anesthesia History - mechanical handyman: Anesthesia History - mechanical handyman Hx Hospitalization No 11/14/23 14:40 Any Problems With Anesthesia Yes: SLOW TO AWAKEN 11/14/23 14:40 Cholinesterase deficiency No 11/14/23 14:40 You/Your Family Experience Yes: MOTHER 11/14/23 14:40 fever (hyperthermia) with Relationship MOTHER 11/14/23 14:40 Recent Exposure to Contagious No 11/28/23 06:12 Disease Does patient have nerve No 11/14/23 14:40 stimulator Patient instructed to have device shut off --Does patient have Pacemaker No 11/28/23 06:13 or ICD? When Was Last Pacemaker Check QUESTION #4 FULL TEXT: You/Your Family Experience fever (hyperthermia) with Anesthesia Last Oral Intake Last Oral intake: Last Oral Intake NPO since 03:40 11/28/23 06:13 Meds taken in AM with sips of Yes 11/28/23 06:13 water? Meds patient instructed to take am of surgery PONV PONV - mechanical handyman: PONV - mechanical handyman Female Yes 11/14/23 14:40 HX of Motion Sickness Yes 11/14/23 14:40 HX of N/V After Surgery No 11/14/23 14:40 Non-Smoker Yes 11/14/23 14:40 Duration of Surgery greater Yes 11/14/23 14:40 than 60 minutes Number of Risk Factors 4 11/14/23 14:40 PONV Score Severe Risk 11/14/23 14:40 Height & Weight Height & Weight: Anesthesia: Height & Weight Height 5 ft 1 in 11/28/23 06:13 Weight: 89.358 kg 11/28/23 06:13 Body Mass Index (BMI) 37.2 11/28/23 06:13 Respiratory Assessment Respiratory Assessment - mechanical handyman: Respiratory Tract Infection Hx - mechanical handyman Hx Respiratory Tract Infection Yes: SINUS INFECTION/TREATED 11/14/23 14:40 /RESOLVED STOP Sleep Apnea STOP Sleep Apnea - mechanical handyman: STOP Sleep Apnea - mechanical handyman Hx Hypertension Yes: CONTROLLED WITH MED 11/14/23 14:40 Hx Sleep Apnea No 11/14/23 14:40 CPAP BIPAP Do you snore loudly (louder No 11/14/23 14:40 than talking or can be heard Do you often feel tired/ No 11/14/23 14:40 fatigued/ sleepy during daytime? Has anyone observed you stop Yes 11/14/23 14:40 breathing during sleep? STOP Results Positive 11/14/23 14:40 QUESTION #5 FULL TEXT : Do you snore loudly (louder than talking or can be heard through closed doors)? Tobacco Use History Tobacco Use History - mechanical handyman: Tobacco Use History - mechanical handyman Tobacco Use Smoking Status Never smoker 11/14/23 14:40 Hx Tobacco Use No 11/14/23 14:40 Years Smoking Packs Smoked per Day Smoking Cessation Date was within the last 15 years Hx Smoking Cessation Date Hx Smoking Cessation Counseling Hematologic Medial History Hematologic Hx - mechanical handyman: Hematologic Medical Hx - race relations adviser Hx of Blood Transfusion No 11/14/23 14:40 Hx of Transfusion in last 3 No 11/14/23 14:40 Months Date of Last Transfusion (if within last 3 months) Ever experience any problems No 11/14/23 14:40 with transfusion(s)? Specify any problems Hx of Preganancy in last 3 No 11/14/23 14:40 Months Nurse Filling Out Transfusion DSCHRIBER 11/14/23 14:40 & Questions: Date: 11/14/23 11/14/23 14:40 Time: 14:42 11/14/23 14:40 Patient unable to answer at this time (ie. confused, unrespo /Reproduction History /Reproductive History - mechanical handyman: /Reproductive Hx- mechanical handyman Hx Now No 11/14/23 14:40 Gestational Age (in weeks): EDC: Hx Hx Para Hx Section SAB No 11/14/23 14:40 Active Medications Active Medications: Current Medications Generic Name Dose Route Start Last Admin Trade Name Freq PRN Reason Stop Dose Admin Acetaminophen 1,000 mg 11/28/23 07:30 11/28/23 06:11 Acetaminophen 500 Mg Tablet PO 11/28/23 07:31 1,000 mg PREOP ONE Administration Celecoxib 400 mg 11/28/23 07:30 11/28/23 06:10 Celecoxib 200 Mg Capsule PO 11/28/23 07:31 400 mg X1 ONE Administration Dexamethasone Sodium Phosphate 8 mg 11/28/23 07:30 Dexamethasone 4 Mg/Ml Vial IV 11/28/23 07:31 X1 ONE Enoxaparin Sodium 40 mg 11/28/23 07:30 11/28/23 06:10 Enoxaparin 40 Mg/0.4 Ml Syringe SC 11/28/23 07:31 40 mg X1 ONE Administration Gabapentin 600 mg 11/28/23 07:30 11/28/23 06:11 Gabapentin 600 Mg Tablet PO 11/28/23 07:31 600 mg PREOP ONE Administration Lactated Ringer's 1,000 mls @ 40 mls/hr 11/28/23 07:30 IV .Q25H MIGUELINA Cefazolin Sodium 2 gm/ Sodium 110 mls @ 150 mls/hr 11/28/23 07:30 Chloride IV 11/28/23 08:13 PREOP ONE Lactated Ringer's 1,000 mls @ 70 mls/hr 11/28/23 07:30 IV .[id number] MIGUELINA Metronidazole 500 mg in 100 mls @ 100 mls/hr 11/28/23 07:30 Flagyl IV 11/28/23 08:29 X1 ONE Lactated Ringer's 1,000 mls @ 15 mls/hr 11/28/23 05:45 11/28/23 06:17 IV 15 mls/hr .Q48H MIGUELINA Administration Insulin Human Lispro 0 unit 11/28/23 07:30 Insulin Lispro 100 Unit/Ml Insuln.Pen SC Q4H PRN PRN BG >/= 180, SEE PROTOCOL Protocol Ondansetron HCl 4 mg 11/28/23 07:30 Ondansetron 4 Mg/2 Ml Vial IV 11/28/23 07:31 X1 ONE Phenazopyridine HCl 190 mg 11/28/23 07:30 11/28/23 06:10 Phenazopyridine 95 Mg Tablet PO 11/28/23 07:31 190 mg X1 ONE Administration Scopolamine HBr 1 patch 11/28/23 07:30 11/28/23 06:10 Scopolamine 1mg/72hr Patch TD 11/28/23 07:31 1 patch X1 ONE Administration PFSH Medical History (Updated 11/14/23 @ 14:46 by Edith [place]) Wears contact lenses Anxiety Restless legs Vertigo History of IBS Gastric reflux Non-smoker Leg cramps Hypertension Home Medications ?Medication ?Instructions ?Recorded ?Last Taken ?Type ibuprofen 600 mg tablet 600 mg PO Q6H PRN Pain #60 tabs 06/18/19 Unknown Rx cyclobenzaprine 10 mg tablet 10 mg PO BID PRN muscle spasm #10 09/29/21 Unknown Rx tabs hydrocodone-acetaminophen 5-325mg 1 tab PO Q6H PRN pain 3 days #10 09/29/21 Unknown Rx 5mg-325mg tabs omeprazole 20 mg capsule,delayed 20 mg PO DAILY #30 CAPSULES 05/23/23 11/28/23 03:40 Rx release ondansetron 4 mg disintegrating 4 mg PO Q8H PRN nausea and 05/23/23 Unknown Rx tablet vomiting 4 days #10 tabs albuterol sulfate 90 mcg/actuation 2 puff inhalation Q6H PRN PRN 11/14/23 Unknown History aerosol inhaler wheezing amlodipine 10 mg tablet 10 mg PO DAILY 11/14/23 11/28/23 03:40 History cholecalciferol (vitamin D3) 125 125 mcg PO DAILY 11/14/23 11/27/23 History mcg (5,000 unit) capsule fluticasone propionate 50 1 spray intranasal BID PRN PRN 11/14/23 Unknown History mcg/actuation nasal nasal congestion spray,suspension meclizine 25 mg tablet 25 mg PO Q6H PRN PRN dizziness 11/14/23 Unknown History Allergy/AdvReac Type Severity Reaction Status Date / Time Penicillins Allergy Hives Verified 11/28/23 06:07 Surgical History (Updated 11/14/23 @ 14:46 by Edith [place]) History of herniorrhaphy Social History Smoking Status: Never smoker Review of Systems (Anesthesia) ROS Narrative System reviewed and no additional complaints, except as documented.
[2023-11-28] MEDS: metroNIDAZOLE 500 MG/100 ML BAG 100 MG IV (07:29)
--- NOTE | 2023-11-28 07:30 | HYST_PTH ---
PATIENT: BRIGIDO COLE LOC: [facility] [place] U#:[id number] AGE/SX: 48/F ROOM: RE11/28/[address]: Dr. Katelyn Gomez MD : 1975 BED: DIS: 11/28/2023 SPEC #: [id number] RECD: 11/28/23 11:49 STATUS: BEBETO GALVAN #: [id number] МАРИНА: 11/28/23 07:[address]: Katelyn Gomez DEPT: SURGICAL PATHOLOGY RECD BY: Lucia Mckinney ENTERED: 11/28/23 13:58 SP TYPE: HYSTERECT OTHR DR: Dr. Ashley Stovall MD Tissues: Uterus, NOS Procedures: Surgery Specimen Level V HEADER OPERATION: Hysterectomy, TLH, bilateral salpingectomy, cystoscopy PRE-OP DIAGNOSIS: Uterine fibroid, abnormal uterine bleeding, pelvic pain, dysmenorrhea TISSUE SUBMITTED: Uterus, cervix, bilateral tubes MICROSCOPIC DIAGNOSIS Uterus, cervix, bilateral fallopian tubes, hysterectomy, bilateral salpingectomy: Cervix - Chronic cystic cervicitis Endometrium - Weakly proliferative endometrium with focal area of exogenous hormone effects. Myometrium - An intermural leiomyoma (8.0cm in greatest dimension) - Adenomyosis. Bilateral fallopian tubes- No pathologic diagnosis. 11/29/2023 MICROSCOPIC DESCRIPTION Slides are reviewed. GROSS DESCRIPTION Received in fixative is one container labeled with the patient's name and designated uterus. The specimen consists of a uterus with attached cervix and two detached fallopian tubes. The uterus with cervix measures 12.5 x 9.0 x 7.0 cm and is distorted and weighs 298 gm. The ectocervix is grossly unremarkable. The cervical os is oval in contour. The endocervical canal measures 3.7 cm in length and is grossly unremarkable. The triangular endometrial cavity measures 5.0 x 3.0 cm. The velvety, light campos endometrium measures up to 0.2 cm in thickness. The endometrial cavity contains a T shaped plastic IUD device measuring 3.5 x 3.5 x 0.2cm. This device is intact and shows no migration into the myometrial stroma. The myometrium measures 2.2 cm in average thickness and is distorted by a single rubbery nodule measuring 8.0 x 6.0 x 6.0cm. Serial sections of the nodule reveal a whorled appearance without areas of cyst formation, necrosis, or hemorrhage. The detached fallopian tubes are average length of 4.5cm and average diameter of 0.5cm. Trapper Bird sections are submitted in eleven cassettes as follows: 1 - anterior cervix, 2 - posterior cervix, 3 & 4 - anterior uterine wall, 5 & 6 - posterior uterine wall, 7-9- myometrial mass, 10- one fallopian tube, 11- second fallopian tube. / AM: 11/28/2023 TC:1 CPT: 42287
[2023-11-28] MEDS: Cefazolin 2 GM in 0.9% Normal Saline (100mL Bag) 100 ML IV (07:32)
[2023-11-28] MEDS: dexAMETHasone 4 MG/ML Vial 8 MG IV (07:44)
[2023-11-28] MEDS: Bupivacaine Mpf 0.5% 30 ML VIAL (08:09)
[2023-11-28 09:14] LABS: Bedside Glucose 73 mg/dL (74-106)
[2023-11-28 09:14] LABS: Bedside Glucose 74 mg/dL (74-106)
[2023-11-28] MEDS: Ondansetron 4 MG/2 ML Vial IV (09:30)
--- NOTE | 2023-11-28 09:30 | OP.PCM_ITS ---
Problems Associated Problem List Diagnoses (1) Dysmenorrhea: (2) Pelvic pain: (3) Abnormal uterine bleeding (AUB): (4) Uterine fibroid: Report of Operation Date of Procedure: 11/28/23 Pre-Operative Diagnosis: Uterine fibroid, dysmenorrhea, pelvic pain, AUB Post-Operative Diagnosis: same Surgery/Procedure Performed:: TLH for uterus >250 g, bilateral salpingectomy, cystoscopy Description of Surgical Findings:: normal cervix and vagina, normal bladder, normal tubes and ovaries, uterus w/ large uterine fibroid Surgeon: Katelyn Gomez printed circuit board reworker: Falguni Alonzo printed circuit board reworker: Suellen John Type of Anesthesia: General Anesthesiologist: Andrey Casillas Special Medications: none Specimen's removed: uterus, cerivx, bilateral tubes Drains: none Estimated Blood Loss (mL): 100 Fluids Replaced: 1500 mL Description of Procedure: The patient was taken to the operating room where she was prepped and draped in the dorsal lithotomy position. Her arms were tucked to the side and padded and her legs were placed in the yellowfin stirrups. Care was taken to ensure that she was placed in a neurologically safe and neutral position. A weighted speculum was placed in the vagina and the anterior lip of the cervix was grasped with a single-tooth tenaculum. The cervix sounded to 11 centimeters. 2-0 Vicryl sutures were secured to the cervix at 3 and 9:00. The 3.5 cm uterine [employer] Clerk was placed into the cervix and the balloon inflated. The stay sutures were placed through the cup and secured down to the cervix. Once theUterine manipulator was secured to the cervix the Waters catheter was placed to straight drain. Attention was turned to the abdominal portion of the case. Before skin incisions were made they were infiltrated with 0.5% Marcaine solution for local anesthetic. A 5 mm Left upper quadrant incision was made and while tenting the anterior abdominal wall up with towel clamps a 5 mm blade less trocar and sleeve were advanced directly into the peritoneal cavity. Peritoneal placement was confirmed with the laparoscope the pneumoperitoneum was created, and the underlying abdominal contents were intact. The patient was placed in Trendelenburg and the above findings were noted. Right and left lateral 5 mm trochars were placed under direct visualization without difficulty. The antimesenteric portion of the tube was clamped sealed and transected serially on both sides with the LigaSure device. The tubes were amputated from the uterus and brought out through the trocar. The round ligaments were clamped sealed and transected and a window was made in the peritoneum. The utero- ovarian ligaments were then clamped sealed and transected with the LigaSure device and the pedicles were hemostatic The bladder flap was dissected down with the LigaSure device and blunt dissection and the uterine arteries were then skeletonized. The uterine arteries were clamped sealed and transected on both sides with the LigaSure device. Then along the cardinal ligament uterine arteries adjacent to the cervix were clamped sealed and transected with the LigaSure device to move them away from the vaginal cuff angle. At this point the pedicles were all examined and found to be hemostatic. The bladder flap was rechecked and found to be adequately down. The monopolar t ip of the LigaSure device was then used to enter the anterior vagina. The vaginal manipulator cup was noted in the vaginal colpotomy incision was made circumferentially around the cup. When the 3 and 9:00 positions of the cervicovaginal junction were reached these were clamped sealed and transected with the LigaSure device to secure any small remaining vessels. At this point the pedicles were hemostatic from above and attention was turned to the vaginal portion of the case again. The uterus was brought intact out through the vaginal colpotomy incision along with the tubes The posterior vaginal cuff was run with a 2-0 Vicryl running locked suture to reattach the peritoneum to the vaginal epithelium. Vaginal angle sutures were placed on both sides with 0 Vicryl sutures and care was taken to ensure that the uterosacral ligament was secured into this stitch. The remainder the vagina was then closed horizontally with interrupted 0 Vicryl sutures. The cuff was hemostatic vaginally. The Waters catheter was removed and a cystoscopy was performed. The bladder appeared normal and was intact. Both ureteral orifices were noted and both ureteral jets were seen. The cystoscope was removed and the Watesr catheter was placed back to straight drain. A sponge stick was placed in the vagina to help place traction against the vaginal cuff and the pneumoperitoneum was re-created. The suction egg setter was used to remove any blood and clots from the peritoneal cavity. The pedicles were reexamined and found to be hemostatic. The vaginal cuff was hemostatic. Some Hmeoblast was placed over the cuff and the pedicles and no active bleeding was noted through the Sheldon. The right and left lateral ports were taken out and the sites were hemostatic. The pneumoperitoneum was released and even under low pressure there was no bleeding of any of the pedicles are vaginal cuff. The umbilical port was removed. The umbilical skin incisions were closed with Monocryl suture and skin glue by Dr. Reese.Dr. Reese also provided tissue manipulation, camera guidance and retraction during the surgery. The vaginal instruments were removed by me and a vaginal sweep was completed by me. The surgery was performed by me with assistance other than the portions dictated as above. There were no qualified residents available for this procedure. All sponge lap and needle counts were correct and the patient was transferred to the recovery room in stable condition. Grafts/Implants Used: none Procedure Start Time: 08:03 Complications none Admit VTE Documentation VTE Present on Admission: No VTE Mechan Device Prophylaxis: SCD's VTE Pharm Prophylaxis ordered?: No Reason prophylaxis not ordered:: Procedure Not Indicated
--- NOTE | 2023-11-28 09:44 | PCM.DC ---
Discharge Instructions Diet Discharge Diet: Light diet - advance as tolerated Activity Discharge Activity: May Drive (in 7 days if not taking pain medication) May resume sexual activity in: 6-8 weeks and - (Nothing in your vagina for 6 weeks. No vaginal or anal intercourse for 6-8 weeks) Dressing / Incision Cleanse incision/area with: Soap & Water and - (Your incisions have skin glue, it can get wet, leave the glue on until it falls off. ) Follow Up Care Please Follow Up With: Katelyn Gomez MD When: With my office in 1-2 and 6 weeks or as needed. [phone] call or send [employer] message for nonemergent questions Test Results: Test results from this visit will be discussed in further detail at your follow-up appointment, if applicable. Discharge Plan Admission Primary Reason for Your Visit: Hysterectomy Attending Provider: Katelyn Gomez Primary Care Provider: Ashley Stovall Instructions Print Language: Kinyarwanda Discharge Orders/Prescriptions Prescriptions: New ibuprofen 600 mg tablet 600 mg PO Q6H PRN (Reason: Pain) 30 Days Qty: 60 1RF oxycodone 5 mg tablet 5 mg PO Q8H PRN (Reason: severe pain) 7 Days Qty: 10 0RF Continued cyclobenzaprine 10 mg tablet 10 mg PO BID PRN (Reason: muscle spasm) Qty: 10 0RF omeprazole 20 mg capsule,delayed release(DR/EC) 20 mg PO DAILY Qty: 30 0RF ondansetron 4 mg tablet,disintegrating 4 mg PO Q8H PRN (Reason: nausea and vomiting) 4 Days Qty: 10 0RF amlodipine 10 mg tablet 10 mg PO DAILY fluticasone propionate 50 mcg/actuation spray,suspension 1 spray INTRANASAL BID PRN PRN (Reason: nasal congestion) cholecalciferol (vitamin D3) 125 mcg (5,000 unit) capsule 125 mcg PO DAILY albuterol sulfate 90 mcg/actuation HFA aerosol inhaler 2 puff inhalation Q6H PRN PRN (Reason: wheezing) meclizine 25 mg tablet 25 mg PO Q6H PRN PRN (Reason: dizziness) Discontinued ibuprofen 600 MG tablet 600 mg PO Q6H PRN (Reason: Pain) Qty: 60 1RF hydrocodone-acetaminophen 5-325 mg tablet 1 tab PO Q6H PRN (Reason: pain) 3 Days Qty: 10 0RF Referrals / Follow Up: Ashley Stovall MD [Primary Care Provider] - Disposition Disposition (needs filled in before D/C Order can be placed): Home, Self Care
--- NOTE | 2023-11-28 10:48 | PCM.POST.ANE ---
Anesthesia: Postop Eval I Current Vital Signs Temperature: 97.8 F Pulse Rate: 76 Blood Pressure: 121/78 Respiratory Rate: 16 Pulse Ox: 98 Oxygen Delivery Method: Room Air Assessment Airway patent: Yes Spontaneous unlabored respirations: Yes Mental status: Awake and Calm nausea: No Vomiting: No Anesthesia Complication: No Fluid Hydration Crystalloid volume administer (ml): 800 Total IV fluid infused: 800 Progress Note Anesthesia document: Postop Eval 1 completed: Yes
[2023-11-28] MEDS: Lactated Ringers @ 70 MLS/HR 70 ML IV (11:35)
--- NOTE | 2023-11-28 12:15 | POSTOPAN2_ITS ---
Anesthesia Postop Eval I Sum Postop Eval Completion status Anesthesia document: Postop Eval 1 completed: Yes Anesthesia Postop Eval I Summary Anesthesia Postop Eval I Summary: Anesthesia Postop Eval I: Assessment Summary Airway patent Yes 11/28/23 10:49 LITHOGRAPHING MACHINE OPERATOR.[email or web address] Spontaneous unlabored Yes 11/28/23 10:49 LITHOGRAPHING MACHINE OPERATOR.[email or web address] respirations Mental status Awake,Calm 11/28/23 10:49 LITHOGRAPHING MACHINE OPERATOR.[email or web address] nausea No 11/28/23 10:49 LITHOGRAPHING MACHINE OPERATOR.[email or web address] Vomiting No 11/28/23 10:49 LITHOGRAPHING MACHINE OPERATOR.[email or web address] Anesthesia Postop Eval I: Fluid Summary Crystalloid volume administer 800 11/28/23 10:49 LITHOGRAPHING MACHINE OPERATOR.JBLOU (ml) Colloids volume administered ( ml) Blood Product volume administered (ml) Total IV fluid infused 800 11/28/23 10:49 LITHOGRAPHING MACHINE OPERATOR.[email or web address] Anesthesia Postop Eval I: Summary Notes Anesthesia Complication No 11/28/23 10:49 LITHOGRAPHING MACHINE OPERATOR.[email or web address] Anesthesia Complication Comment: Post-operative progress note Anesthesia: Postop Eval II Evaluation Mental status: Awake Pain Level: 0 nausea: No Vomiting: No
--- NOTE | 2023-11-28 12:15 | PCM.POSTANE2 ---
Anesthesia Postop Eval I Sum Postop Eval Completion status Anesthesia document: Postop Eval 1 completed: Yes Anesthesia Postop Eval I Summary Anesthesia Postop Eval I Summary: Anesthesia Postop Eval I: Assessment Summary Airway patent Yes 11/28/23 10:49 STEWARD/STEWARDESS TOURIST CLASS.[email or web address] Spontaneous unlabored Yes 11/28/23 10:49 STEWARD/STEWARDESS TOURIST CLASS.[email or web address] respirations Mental status Awake,Calm 11/28/23 10:49 STEWARD/STEWARDESS TOURIST CLASS.[email or web address] nausea No 11/28/23 10:49 STEWARD/STEWARDESS TOURIST CLASS.[email or web address] Vomiting No 11/28/23 10:49 STEWARD/STEWARDESS TOURIST CLASS.[email or web address] Anesthesia Postop Eval I: Fluid Summary Crystalloid volume administer 800 11/28/23 10:49 STEWARD/STEWARDESS TOURIST CLASS.[email or web address] (ml) Colloids volume administered ( ml) Blood Product volume administered (ml) Total IV fluid infused 800 11/28/23 10:49 STEWARD/STEWARDESS TOURIST CLASS.[email or web address] Anesthesia Postop Eval I: Summary Notes Anesthesia Complication No 11/28/23 10:49 STEWARD/STEWARDESS TOURIST CLASS.[email or web address] Anesthesia Complication Comment: Post-operative progress note Anesthesia: Postop Eval II Evaluation Mental status: Awake Pain Level: 0 nausea: No Vomiting: No
[2023-11-28] MEDS: Lactated Ringers 1,000 ML 75 ML IV (13:02)
== END 2023-11-28 19:45 | disposition home or self-care (01) ==
LOC: SDC 05:19 → AC 05:20
PROVIDERS: Anesthesiology; PCP Internal Medicine; Referring Provider Internal Medicine; Visit Provider Obstetrics & Gynecology
PROC: 0UT94ZZ Resection of Uterus, Percutaneous Endoscopic Approach (ICD-10-PCS; CPT 58573; principal; 2023-11-28 07:10)
DX: D25.1 Intramural leiomyoma of uterus (principal); N72 Inflammatory disease of cervix uteri; N94.6 Dysmenorrhea, unspecified; N80.03 Adenomyosis of the uterus; I10 Essential (primary) hypertension; K21.9 Gastro-esophageal reflux disease without esophagitis; Z79.51 Long term (current) use of inhaled steroids; Z79.899 Other long term (current) drug therapy
CPT/HCPCS: 58573; 00840; 36415; 81025; 82962; 83735; 85027; 86850; 86900; 86901; 88307; J7120; J2405; J3475

== ENCOUNTER 2024-11-06 10:44 | Emergency (ER) | payer MEDICAID, SELFPAY ==
[2024-11-06 10:45] VITALS: BP 111/87; PULSE 98; RESP 18; TEMP 36.1; O2SAT 99
[2024-11-06 11:22] LABS: Hematocrit 41.9 % (37-47); Hemoglobin 14.2 g/dL (12.0-15.0); Immature Granulocytes Count 0.080 X10^3/uL (0.0-0.0); Mean Corp Hgb Conc 33.9 g/dL (32-36); Mean Corpuscular Volume 84.3 fL (81-99); Mean Platelet Vol. 9.6 fl (6.2-12.0); NRBC Flagged by Analyzer 0 % (0-5); POSITIVE DIFFERENTIAL YES; Platelet Count 332 K/mm3 (150-450); RBC Distribution Width CV 12.7 % (11.6-14.6); RBC Distribution Width SD 39.0 fl (35.1-43.9); Red Blood Count 4.97 M/mm3 (4.2-5.4); White Blood Count 13.4 K/mm3 (4.4-11.0)
--- NOTE | 2024-11-06 11:22 | EDS_ITS ---
HPI History of Present Illness Chief Complaint: Nausea/Vomiting [facility] Medical History Dysmenorrhea Pelvic pain Abnormal uterine bleeding (AUB) Uterine fibroid Headache, migraine Wears contact lenses Anxiety Restless legs Vertigo History of IBS Gastric reflux Non-smoker Leg cramps Hypertension Home Medications ?Medication ?Instructions ?Recorded ?Last Taken ?Type cyclobenzaprine 10 mg tablet 10 mg PO BID PRN muscle s pasm #10 09/29/21 Unknown Rx tabs omeprazole 20 mg capsule,delayed 20 mg PO DAILY #30 CA PSULES 05/23/23 11/28/23 03:40 Rx release ondansetron 4 mg disintegrating 4 mg PO Q8H PRN nausea and 05/23/23 Unknown Rx tablet vomiting 4 days #10 tabs albuterol sulfate 90 mcg/actuation 2 puff inhalation Q 6H PRN PRN 11/14/23 Unknown History aerosol inhaler wheezing amlodipine 10 mg tablet 10 mg PO DAILY 11/14/2311/16 03:40 History cholecalciferol (vitamin D3) 125 125 mcg PO DAILY 10/1711/27/23 History mcg (5,000 unit) capsule fluticasone propionate 50 1 spray intranasal BID PRN P RN 11/14/23 Unknown History mcg/actuation nasal nasal congestion spray,suspension meclizine 25 mg tablet 25 mg PO Q6H PRN PRN dizzine ss 11/14/23 Unknown History ibuprofen 600 mg tablet 600 mg PO Q6H PRN Pain 30 da ys #60 11/28/23 Unknown Rx TABLETS oxycodone 5 mg tablet 5 mg PO Q8H PRN pain 7 days #10 11/28/23 Unknown Rx tabs ondansetron 4 mg disintegrating 4 mg PO Q8H PRN PRN Na usea #10 tabs 11/06/24 Unknown Rx tablet pantoprazole 20 mg tablet,delayed 20 mg PO BID #60 tab s 11/06/24 Unknown Rx release (Protonix) sucralfate 1 gram tablet (Carafate) 1 g PO TID 30 days #90 tabs 11/06/24 Unknown Rx Allergy/AdvReac Type Severity Reaction Status Date / Time Penicillins Allergy Hives Verified 11/06/24 10:45 Surgical History History of herniorrhaphy Social History (Updated 11/06/24 @ 11:09 by Dimple Martinez) housing: house Smoking Status: Never smoker EXAM Physical Exam Const Vital Signs: 11/06/24 10:45 11/06/24 13:00 Temperature 96.9 F L Temperature Source Temporal Pulse Rate 98 80 Respiratory Rate 18 Blood Pressure 111/87 H 123/66 H Blood Pressure Mean 95 85 Pulse Ox 99 100 [facility] [place] Narrative Medical decision making narrative: HISTORY OF PRESENT ILLNESS: Chief complaint: Nausea vomit 49-year-old female history of asthma, GERD, hypertension presents with nausea and vomiting. She states this began yesterday per EMS patient received Zofran en route and IV was established. Notes diffuse abdominal pain nausea and vomiting but no diarrhea. No urinary complaints. No vaginal bleeding or discharge. Notes history of IBS. REVIEW OF SYSTEMS: Pertinent positives: Nausea and vomiting Pertinent negatives: Chest pain PHYSICAL EXAM: Nursing triage notes reviewed, Vital signs reviewed Constitutional: please see [facility] HENT: MMM Eyes: Pupils equal round and reactive to light, Extraocular muscles intact Neck: No stridor, no JVD, full neck ROM Lungs: Clear to auscultation, No wheezing or rales. No increased work of breathing, no conversational dyspnea, no accessory muscle use, no nasal flaring. No respiratory distress noted Heart: Regular rate and rhythm, No murmurs, No rubs and No gallops, 2+ distal pulses (radial, femoral, posterior tibial) in all extremities Abdomen: Soft, there is no tenderness, rigidity, rebound or guarding, no obvious peritoneal signs, no palpable pulsatile abdominal masses, no auscultated abdominal bruit : No CVAT Extremities: No edema Neuro: No new focal neurological deficits, cranial nerves II through XII intact, 5/5 strength in all present extremities. Intact sensation to light touch in all present extremities, 2+ reflexes bilateral patella tendons. Skin: No rash or lesions noted MEDICAL DECISION MAKING: Chief Complaint: please see [facility] External records reviewed: Reviewed prior imaging studies: Reviewed CT scan of the abdomen pelvis which showed uterine fibroids and a right hepatic lobe hemangioma otherwise no acute surgical pathologies Factors affecting care: As per HPI Social determinants of health: Denies illicit drug History obtained from others: none Consults: GI (Dr. Angulo) - if tolerating PO give PPI BID, carafate TID. Stop NSAIDs. Office visit. MDM Narrative: The patient was initially hemodynamically stable, afebrile and nontoxic- appearing. Exam I considered the following differential diagnosis: Dehydration, electrolyte disturbance, bowel obstruction, bowel perforation, acute pancreatitis, gallbladder pathology, I obtained a broad lab to further determine if the patient was suffering from a life-threatening etiology. Initially assessed the patient IV fluids, patient received Zofran per EMS. ALL IMAGES (IF OBTAINED) HAVE BEEN PERSONALLY REVIEWED AND INTERPRETED BY MYSELF. CBC with leukocytosis suggestive of system inflammation, no anemia or thrombocytopenia BMP with very slight metabolic acidosis with a bicarb of 20.4 (lab reference range of 21-32), there is slight elevation in anion gap at 16 (lab reference range 5-15), no acute kidney injury LFTs with slight elevation in AST and ALT, alkaline phosphatase similar to prior studies but no hyperbilirubinemia Lipase is wnl indicating no pancreatic inflammation. Urine test negative CT scan shows no evidence of obstruction or perforation but does show gastric distention Discussed with gastroenterology who noted if the patient can tolerate p.o. she can be discharged with a PPI and Carafate and follow-up as an outpatient. Patient passed p.o. challenge. Repeat abdominal exam is benign. The patient was appropriate for discharge home The patient and/or family, caregivers express understanding. The patient and/or family, caregivers agrees with the plan. Shared decision making: I will have a discussion with the patient and or visitors regarding risk/be nefits of further testing or admission. They will be made aware of of the risk/benefits inherent in this decision they will be given the opportunity to voice understanding. Total critical care time today provided was at least 0 minutes. This excludes separately billable procedures. Critical care time (if documented) is secondary to the patient having high probability of clinically significant/life threatening deterioration in the patient's condition which required my urgent intervention. Impression: 1. Acute nausea and vomiting 2. Gastric outlet obstruction 3. Elevated liver enzymes Dispo: Discharge home This note was generated with Jigsee dictation software. It may contain incorrect words, spelling, and punctuation that were not noted in review of the chart prior to signing. Lab Data Labs: Laboratory Results - last 24 hr 11/06/24 11:13 WBC 13.4 H RBC 4.97 Hgb 14.2 Hct 41.9 MCV 84.3 MCH 28.6 MCHC 33.9 RDW Std Deviation 39.0 RDW Coeff of Juni 12.7 Plt Count 332 MPV 9.6 Immature Gran % (Auto) 0.600 Neut % (Auto) 92.6 H Lymph % (Auto) 3.4 L [place] % (Auto) 3.1 Eos % (Auto) 0.0 Baso % (Auto) 0.3 Absolute Neuts (auto) 12.4 H Absolute Lymphs (auto) 0.46 L Nucleated RBC % 0 Sodium 138 Potassium 3.4 Chloride 102 Carbon Dioxide 20.4 L Anion Gap 16 H BUN 23 H Creatinine 0.53 L Est GFR (MDRD) Non-Af 114 BUN/Creatinine Ratio 43.5 H Glucose 158 H Calcium 8.6 Total Bilirubin 0.62 AST 115 H ALT 96 H Alkaline Phosphatase 142 H Total Protein 7.8 Albumin 4.1 Globulin 3.7 Albumin/Globulin Ratio 1.1 Lipase 20 Serum , Qual NEGATIVE Radiography Diagnostic Testing: Clinical Impression(s) from Imaging Studies Abdomen/Pelvis CT 11/06/24 13:15 IMPRESSION: Status post cholecystectomy. Fluid-filled distended stomach. Gastric outlet obstruction should be ruled out. Small bilateral renal cysts. Status post hysterectomy. Reading Location: [id number] Discharge Plan Triage Chief Complaint: Nausea/Vomiting ED Provider: Rakan Lopez Dx/Rx/DC Orders Instructions: Gastroparesis, ED Gastroenteritis, Viral (Adult), ED Vomiting (Adult) Prescriptions: New ondansetron 4 mg tablet,disintegrating 4 mg PO Q8H PRN PRN (Reason: Nausea) Qty: 10 0RF pantoprazole [Protonix] 20 mg tablet,delayed release (DR/EC) 20 mg PO BID Qty: 60 0RF sucralfate [Carafate] 1 gram tablet 1 g PO TID 30 Days Qty: 90 0RF No Action cyclobenzaprine 10 mg tablet 10 mg PO BID PRN (Reason: muscle spasm) Qty: 10 0RF omeprazole 20 mg capsule,delayed release(DR/EC) 20 mg PO DAILY Qty: 30 0RF ondansetron 4 mg tablet,disintegrating 4 mg PO Q8H PRN (Reason: nausea and vomiting) 4 Days Qty: 10 0RF amlodipine 10 mg tablet 10 mg PO DAILY fluticasone propionate 50 mcg/actuation spray,suspension 1 spray INTRANASAL BID PRN PRN (Reason: nasal congestion) cholecalciferol (vitamin D3) 125 mcg (5,000 unit) capsule 125 mcg PO DAILY albuterol sulfate 90 mcg/actuation HFA aerosol inhaler 2 puff inhalation Q6H PRN PRN (Reason: wheezing) meclizine 25 mg tablet 25 mg PO Q6H PRN PRN (Reason: dizziness) ibuprofen 600 mg tablet 600 mg PO Q6H PRN (Reason: Pain) 30 Days Qty: 60 1RF oxycodone 5 mg tablet 5 mg PO Q8H PRN (Reason: pain) 7 Days Qty: 10 0RF Stand Alone Forms: ED Work / School Excuse Primary Care Provider: Ashley Stovall Referrals: Markus Angulo, DO [Med Staff - Active Staff] - Activity Restrictions/Additional Instructions: Thank you for trusting us with your care today! Your labs images are reassuring. Please take Zofran as needed for nausea or vomiting. I spoke with the GI doctor (Dr. Angulo) recommend you start a medicine called Carafate and take Protonix as prescribed. Please take Tylenol (2 pills, 650 mg), ibuprofen (2 pills, 400 mg) every 6 hours as needed for pain and fever control. Please return to the emergency department if your symptoms change or worsen. Please follow with Gastroenterology for further outpatient evaluation and management. Print Language: Danish Disposition Disposition: Home, Self Care
[2024-11-06 11:52] LABS: Internal QC Validated? YES +Cl - CLEAR BKGD; Pregnancy, Serum, hCG Quali. NEGATIVE Negative; Record Kit Lot#, Serum Preg. 0000964736
[2024-11-06] MEDS: 0.9% Normal Saline (1000mL) 1,000 ML 999 ML IV ×2 (12:16→15:34)
[2024-11-06 13:00] VITALS: BP 123/66; PULSE 80; O2SAT 100
[2024-11-06 13:08] LABS: AST(SGOT) 115 U/L (<=31); Alanine Aminotransfer ALT/SGPT 96 U/L (<=34); Albumin, Serum 4.1 g/dL (3.5-5.0); Alkaline Phosphatase 142 U/L (35-104); Anion Gap 16 (5-15); BUN 23 mg/dL (4-19); BUN/Creat Ratio 43.5 RATIO (10-20); Calcium,Total 8.6 mg/dL (7.6-11.0); Carbon Dioxide 20.4 mmol/L (21.0-32.0); Chloride 102 mmol/L (98-108); Globulin 3.7 g/dL (2.2-4.2); Glucose 158 mg/dL (70-99); Lipase 20 U/L (13-75); Potassium 3.4 mmol/L (3.3-5.1)
--- NOTE | 2024-11-06 13:15 | CT_ITS ---
PROCEDURE: ABDOMEN/PELVIS W IV CONT ONLY 11/06/2024 REASON FOR EXAM: ABDOMINAL PAIN, ELEVATED WHITE BLOOD CELL COUNT Nausea and vomiting. TECHNIQUE: ABDOMEN/PELVIS W IV CONT ONLY Coronal and Sagittal reconstruction series were provided. CONTRAST: Isovue 370 VOLUME: 100 mL One or more dose reduction techniques were used (e.g., Automated exposure control, adjustment of the mA and/or kV according to patient size, use of iterative reconstruction technique. RADIATION DOSE SUMMARY: CTDlvol: 14.7 mGy DLP: 1143.75 mGycm COMPARISON: Comparison is made with prior study dated May 23, 2023. FINDINGS: Lung bases: Patchy infiltrate in the lingular segment of the left upper lobe. No coronary artery calcification is seen. Liver: Normal size. No mass. Gallbladder: Surgically absent. The stomach is distended with fluid down to the region of the 1st portion of the duodenum. Possible gastric outlet obstruction should be ruled out. Spleen: Normal size. Pancreas: Normal size without evidence of mass surrounding inflammation or ductal dilation. Adrenals: Unremarkable Kidneys: Small renal cysts are seen in the right kidney. The largest cyst measures 11.8 mm. There is a 17.8 mm cyst in the upper medial portion of the left kidney as well as a 1 cm cyst in the midportion. No evidence of hydronephrosis. Bladder: Unremarkable Reproductive Organs: Prior hysterectomy. Adnexal regions are unremarkable. Bowel: Fluid-filled nondistended small bowel loops. Appendix: Unremarkable Lymph nodes: Unremarkable. Vasculature: The abdominal aorta and IVC are normal. Peritoneum / Retroperitoneum: Unremarkable Bones: Degenerative changes of the spine. CT/Abdomen/Pelvis W IV Cont ONLY IMPRESSION: Status post cholecystectomy. Fluid-filled distended stomach. Gastric outlet obstruction should be ruled out . Small bilateral renal cysts. Status post hysterectomy. Reading Location: [id number]
[2024-11-06 15:00] VITALS: BP 127/80; PULSE 80; O2SAT 100
[2024-11-06 16:35] VITALS: BP 127/80; PULSE 80; RESP 19; TEMP 35.7; O2SAT 100
== END 2024-11-06 16:36 | disposition home or self-care (01) ==
PROVIDERS: Emergency Provider Emergency Medicine; PCP Internal Medicine; Visit Provider Emergency Medicine
DX: R11.2 Nausea with vomiting, unspecified (principal); R10.84 Generalized abdominal pain; D25.9 Leiomyoma of uterus, unspecified; R74.8 Abnormal levels of other serum enzymes; D18.03 Hemangioma of intra-abdominal structures; I10 Essential (primary) hypertension; K21.9 Gastro-esophageal reflux disease without esophagitis; Z79.899 Other long term (current) drug therapy; K31.1 Adult hypertrophic pyloric stenosis
CPT/HCPCS: 74177; 80053; 83690; 84703; 85025; 96361; 96374; 99285; Q9967; A4216; J2405